=== PATIENT | female | born 1955 | race Caucasian/White ===

== ENCOUNTER 2020-07-19 09:13 | Outpatient (REF) | payer MEDICARE, SELFPAY ==
[2020-07-19 11:58] LABS: Creatinine Urine 135.51 mg/dL; Microalbum/Creatinine Ratio Ur 4.4 ug/mg cr; ~HepC Num1 0.06 S/CO (0.00-0.79); ~Hepatitis C Antibody Nonreactive (Nonreactive)
[2020-07-19 13:34] LABS: Alanine Aminotransferase 31 U/L (0-31); Albumin Level 3.9 g/dL (3.5-5.0); Alkaline Phosphatase 87 U/L (39-117); Anion Gap 12 (12-20); Aspartate Amino Transferase 24 U/L (5-31); Bilirubin Total 0.9 mg/dL (0.0-1.0); Blood Urea Nitrogen 13 mg/dL (9-16); Calcium 9.3 mg/dL (8.4-10.2); Carbon Dioxide 26 mmol/L (22-29); Chloride 106 mmol/L (96-108); Cholesterol 190 mg/dL; Estimated Average Glucose 143 mg/dL; Estimated Glomerular Filt Rate > 60; Glucose Fasting 117 mg/dL (60-99); HDL Cholesterol 59 mg/dL; Hemoglobin A1c % 6.6 %; LDL Cholesterol Calculated 114 mg/dl; Potassium 4.2 mmol/L (3.3-5.1); Sodium 140 mmol/L (135-145); Total Protein 6.4 g/dL (6.5-8.0); Triglycerides 85 mg/dL
[2020-07-19 13:54] LABS: Vitamin D 25-OH Total 23.6 ng/mL (>30)
== END 2020-07-19 09:14 | disposition home or self-care (01) ==
LOC: HO.MANLR 09:13
PROVIDERS: PCP Internal Medicine; Visit Provider Internal Medicine
DX: E11.9 Type 2 diabetes mellitus without complications (principal); E55.9 Vitamin D deficiency, unspecified; Z11.59 Encounter for screening for other viral diseases
CPT/HCPCS: 36415; 80053; 80061; 82043; 82306; 83036; 86803

== ENCOUNTER 2021-05-08 10:20 | Outpatient (REF) | payer MEDICARE, SELFPAY ==
[2021-05-08 14:07] LABS: Estimated Average Glucose 134 mg/dL; Hemoglobin A1c % 6.3 %
== END 2021-05-08 10:21 | disposition home or self-care (01) ==
LOC: HO.MANLDS 10:20
PROVIDERS: PCP Internal Medicine; Visit Provider Internal Medicine
DX: E59 Dietary selenium deficiency (principal); E11.9 Type 2 diabetes mellitus without complications
CPT/HCPCS: 36415; 83036

== ENCOUNTER 2021-08-28 15:55 | Outpatient (REF) | payer MEDICARE, SELFPAY ==
[2021-08-28 18:15] LABS: Estimated Average Glucose 128 mg/dL; Hemoglobin A1c % 6.1 %
[2021-08-28 18:33] LABS: Alanine Aminotransferase 25 U/L (0-31); Alkaline Phosphatase 77 U/L (39-117); Anion Gap 12 (12-20); Aspartate Amino Transferase 21 U/L (5-31); Bilirubin Total 0.5 mg/dL (0.0-1.0); Blood Urea Nitrogen 14 mg/dL (9-16); Calcium 10.4 mg/dL (8.4-10.2); Carbon Dioxide 25 mmol/L (22-29); Chloride 107 mmol/L (96-108); Estimated Glomerular Filt Rate > 60; Glucose Random 110 mg/dL (60-115); Potassium 4.2 mmol/L (3.3-5.1); Sodium 140 mmol/L (135-145); Total Protein 6.7 g/dL (6.5-8.0)
[2021-08-30 14:17] LABS: Vitamin D 25-OH Total 32.7 ng/mL (>30)
== END 2021-08-28 15:56 | disposition home or self-care (01) ==
LOC: HO.MANLDS 15:55
PROVIDERS: PCP Internal Medicine; Visit Provider Internal Medicine
DX: E11.9 Type 2 diabetes mellitus without complications (principal)
CPT/HCPCS: 36415; 80053; 82306; 83036; 84443

== ENCOUNTER 2021-11-09 08:13 | Outpatient (REF) | payer MEDICARE, SELFPAY ==
[2021-11-09 11:52] LABS: Alanine Aminotransferase 18 U/L (0-31); Albumin Level 3.7 g/dL (3.5-5.0); Alkaline Phosphatase 71 U/L (39-117); Anion Gap 9 (12-20); Aspartate Amino Transferase 17 U/L (5-31); Bilirubin Total 0.8 mg/dL (0.0-1.0); Blood Urea Nitrogen 13 mg/dL (9-16); Calcium 9.5 mg/dL (8.4-10.2); Carbon Dioxide 25 mmol/L (22-29); Chloride 109 mmol/L (96-108); Cholesterol 237 mg/dL; Estimated Glomerular Filt Rate > 60; Glucose Random 128 mg/dL (60-115); HDL Cholesterol 54 mg/dL; LDL Cholesterol Calculated 167 mg/dl; Potassium 4.3 mmol/L (3.3-5.1); Sodium 139 mmol/L (135-145); Total Protein 6.2 g/dL (6.5-8.0); Triglycerides 82 mg/dL
[2021-11-09 12:56] LABS: Estimated Average Glucose 123 mg/dL; Hemoglobin A1c % 5.9 %
== END 2021-11-09 08:14 | disposition home or self-care (01) ==
LOC: HO.MANLDS 08:13
PROVIDERS: Visit Provider Internal Medicine
DX: E11.9 Type 2 diabetes mellitus without complications (principal); E55.9 Vitamin D deficiency, unspecified
CPT/HCPCS: 36415; 80053; 80061; 82306; 83036

== ENCOUNTER 2021-11-12 09:02 | Outpatient (REF) | payer MEDICARE, SELFPAY ==
[2021-11-12 12:09] LABS: Creatinine Urine 91.42 mg/dL; Microalbumin Urine < 5.0 mg/L
== END 2021-11-12 09:03 | disposition home or self-care (01) ==
LOC: HO.MANLDS 09:02
PROVIDERS: Visit Provider Internal Medicine
DX: E11.9 Type 2 diabetes mellitus without complications (principal); E55.9 Vitamin D deficiency, unspecified
CPT/HCPCS: 82043

== ENCOUNTER 2022-04-16 09:07 | Outpatient (REF) | payer MEDICARE, SELFPAY ==
[2022-04-16 11:41] LABS: Estimated Average Glucose 126 mg/dL
[2022-04-16 11:47] LABS: Alanine Aminotransferase 25 U/L (0-31); Albumin Level 4.1 g/dL (3.5-5.0); Alkaline Phosphatase 76 U/L (39-117); Anion Gap 16 (12-20); Aspartate Amino Transferase 22 U/L (5-31); Bilirubin Total 0.7 mg/dL (0.0-1.0); Blood Urea Nitrogen 17 mg/dL (9-16); Carbon Dioxide 24 mmol/L (22-29); Chloride 106 mmol/L (96-108); Cholesterol 263 mg/dL; Estimated Glomerular Filt Rate > 60; Glucose Random 103 mg/dL (60-115); HDL Cholesterol 67 mg/dL; LDL Cholesterol Calculated 177 mg/dl; Potassium 4.5 mmol/L (3.3-5.1); Sodium 141 mmol/L (135-145); Total Protein 6.7 g/dL (6.5-8.0); Triglycerides 96 mg/dL
[2022-04-16 12:07] LABS: Vitamin D 25-OH Total 26.2 ng/mL (>30)
== END 2022-04-16 09:08 | disposition home or self-care (01) ==
LOC: HO.MANLDS 09:07
PROVIDERS: Visit Provider Internal Medicine
DX: E55.9 Vitamin D deficiency, unspecified (principal)
CPT/HCPCS: 36415; 80053; 80061; 82306; 83036

== ENCOUNTER 2022-04-17 11:27 | Outpatient (REF) | payer MEDICARE, SELFPAY ==
[2022-04-17 13:46] LABS: Creatinine Urine 61.06 mg/dL; Microalbum/Creatinine Ratio Ur 16.3 ug/mg cr
== END 2022-04-17 11:28 | disposition home or self-care (01) ==
LOC: HO.LNP 11:27
PROVIDERS: Visit Provider Internal Medicine
DX: E55.9 Vitamin D deficiency, unspecified (principal); E11.9 Type 2 diabetes mellitus without complications
CPT/HCPCS: 82043

== ENCOUNTER 2022-09-04 10:37 | Outpatient (REF) | payer MEDICARE, SELFPAY ==
[2022-09-04 12:55] LABS: MANUAL DIFF FLAG NO
[2022-09-04 13:09] LABS: Basophils Absolute Auto 0.1 X10*3/uL (0.0-0.2); Eosinophils Absolute Auto 0.2 X10*3/uL (0.0-0.4); Eosinophils Percent Auto 2.9 % (0-4); Hematocrit 44.3 % (37.0-47.0); Hemoglobin 14.6 g/dl (12.0-16.0); Imm Gran Abs Auto 0.03 X10*3/uL (0.00-0.03); Imm Gran Pct Auto 0.4 % (0.0-0.4); Lymphocytes Absolute Auto 1.7 X10*3/uL (1.2-4.9); Lymphocytes Percent Auto 23.2 % (20-40); Mean Corpuscular Hemoglobin 30.4 pg (27.0-33.0); Mean Corpuscular Volume 92.1 fL (80.0-98.0); Mean Platelet Volume 11.7 fL (9.4-12.3); Monocytes Absolute Auto 0.5 X10*3/uL (0.1-1.2); Monocytes Percent Auto 7.2 % (2-11); Neutrophils Absolute Auto 4.7 x10*3/uL (2.0-8.3); Neutrophils Percent Auto 65.3 % (45-73); Platelet Count 227 X10*3/uL (160-400); Red Blood Count 4.81 X10*6/uL (4.20-5.50); Red Cell Distribution Width 12.9 % (11.0-16.0); White Blood Count 7.3 X10*3/uL (4.8-10.8)
[2022-09-04 13:20] LABS: Estimated Average Glucose 134 mg/dL; Hemoglobin A1c % 6.3 %
[2022-09-04 13:41] LABS: Alanine Aminotransferase 29 U/L (0-31); Albumin Level 4.1 g/dL (3.5-5.0); Alkaline Phosphatase 83 U/L (39-117); Anion Gap 12 (12-20); Aspartate Amino Transferase 23 U/L (5-31); Bilirubin Total 0.7 mg/dL (0.0-1.0); Blood Urea Nitrogen 14 mg/dL (9-16); Calcium 10.3 mg/dL (8.4-10.2); Carbon Dioxide 28 mmol/L (22-29); Chloride 106 mmol/L (96-108); Estimated Glomerular Filt Rate > 60; Glucose Random 125 mg/dL (60-115); Potassium 4.5 mmol/L (3.3-5.1); Sodium 141 mmol/L (135-145); Total Protein 6.6 g/dL (6.5-8.0)
[2022-09-04 13:59] LABS: Free T4 (Free Thyroxine) 0.97 ng/dL (0.71-1.85); Thyroid Stimulating Hormone 1.19 uIU/mL (0.32-4.0)
== END 2022-09-04 10:38 | disposition home or self-care (01) ==
LOC: HO.MANLDS 10:37
PROVIDERS: Visit Provider Internal Medicine
DX: E11.9 Type 2 diabetes mellitus without complications (principal); R00.2 Palpitations
CPT/HCPCS: 36415; 80053; 83036; 84439; 84443; 85025

== ENCOUNTER 2023-01-01 10:21 | Outpatient (REF) | payer MEDICARE, SELFPAY ==
[2023-01-01 13:00] LABS: MANUAL DIFF FLAG NO
[2023-01-01 13:38] LABS: Basophils Absolute Auto 0.1 X10*3/uL (0.0-0.2); Basophils Percent Auto 0.9 % (0-2); Eosinophils Absolute Auto 0.1 X10*3/uL (0.0-0.4); Eosinophils Percent Auto 2.1 % (0-4); Hematocrit 40.7 % (37.0-47.0); Hemoglobin 13.3 g/dl (12.0-16.0); Imm Gran Abs Auto 0.03 X10*3/uL (0.00-0.03); Imm Gran Pct Auto 0.4 % (0.0-0.4); Lymphocytes Absolute Auto 1.4 X10*3/uL (1.2-4.9); Lymphocytes Percent Auto 20.1 % (20-40); Mean Corpuscular HGB Conc 32.7 g/dl (31.0-35.0); Mean Corpuscular Volume 91.7 fL (80.0-98.0); Mean Platelet Volume 11.4 fL (9.4-12.3); Monocytes Absolute Auto 0.4 X10*3/uL (0.1-1.2); Monocytes Percent Auto 6.6 % (2-11); Neutrophils Absolute Auto 4.7 x10*3/uL (2.0-8.3); Neutrophils Percent Auto 69.9 % (45-73); Platelet Count 229 X10*3/uL (160-400); Red Blood Count 4.44 X10*6/uL (4.20-5.50); Red Cell Distribution Width 13.1 % (11.0-16.0); White Blood Count 6.7 X10*3/uL (4.8-10.8)
[2023-01-01 13:50] LABS: Estimated Average Glucose 123 mg/dL; Hemoglobin A1c % 5.9 %
[2023-01-01 14:08] LABS: Alanine Aminotransferase 26 U/L (0-31); Albumin Level 3.7 g/dL (3.5-5.0); Alkaline Phosphatase 76 U/L (39-117); Anion Gap 10 (12-20); Aspartate Amino Transferase 22 U/L (5-31); Bilirubin Total 0.6 mg/dL (0.0-1.0); Blood Urea Nitrogen 12 mg/dL (9-16); Calcium 9.7 mg/dL (8.4-10.2); Carbon Dioxide 25 mmol/L (22-29); Chloride 107 mmol/L (96-108); Estimated Glomerular Filt Rate > 60; Glucose Random 170 mg/dL (60-115); Potassium 4.2 mmol/L (3.3-5.1); Sodium 138 mmol/L (135-145); Total Protein 6.6 g/dL (6.5-8.0)
[2023-01-01 14:18] LABS: Free T4 (Free Thyroxine) 0.97 ng/dL (0.71-1.85); Thyroid Stimulating Hormone 0.88 uIU/mL (0.32-4.0)
== END 2023-01-01 10:22 | disposition home or self-care (01) ==
LOC: HO.MANLDS 10:21
PROVIDERS: Visit Provider Internal Medicine
DX: E11.9 Type 2 diabetes mellitus without complications (principal); R00.2 Palpitations
CPT/HCPCS: 36415; 80053; 83036; 84439; 84443; 85025

== ENCOUNTER 2023-04-21 08:59 | Outpatient (REF) | payer MEDICARE, SELFPAY ==
[2023-04-21 13:52] LABS: Estimated Average Glucose 140 mg/dL; Hemoglobin A1c % 6.5 % (<6.0)
[2023-04-21 14:12] LABS: Alanine Aminotransferase 30 U/L (0-31); Alkaline Phosphatase 71 U/L (39-117); Anion Gap 10 (12-20); Aspartate Amino Transferase 28 U/L (5-31); Bilirubin Total 0.8 mg/dL (0.0-1.0); Blood Urea Nitrogen 11 mg/dL (9-16); Calcium 9.9 mg/dL (8.4-10.2); Carbon Dioxide 25 mmol/L (22-29); Chloride 106 mmol/L (96-108); Cholesterol 210 mg/dL (<200); Estimated Glomerular Filt Rate > 60; Glucose Random 113 mg/dL (60-115); HDL Cholesterol 65 mg/dL (>40); LDL Cholesterol Calculated 125 mg/dL (<100); Potassium 4.3 mmol/L (3.3-5.1); Sodium 137 mmol/L (135-145); Total Protein 7.1 g/dL (6.5-8.0); Triglycerides 101 mg/dL (<150)
[2023-04-21 14:18] LABS: Creatinine Urine 48.23 mg/dL; Microalbum/Creatinine Ratio Ur 12.4 ug/mg cr (<30)
[2023-04-21 14:30] LABS: Vitamin D 25-OH Total 54.3 ng/mL (>30)
== END 2023-04-21 09:00 | disposition home or self-care (01) ==
LOC: HO.MANLDS 08:59
PROVIDERS: Visit Provider Internal Medicine
DX: E11.9 Type 2 diabetes mellitus without complications (principal); E55.9 Vitamin D deficiency, unspecified
CPT/HCPCS: 36415; 80053; 80061; 82043; 82306; 82570; 83036

== ENCOUNTER 2023-08-15 11:18 | Outpatient (REF) | payer MEDICARE, SELFPAY ==
[2023-08-15 14:06] LABS: Estimated Average Glucose 140 mg/dL; Hemoglobin A1C 172.9708 umol/L; Hemoglobin A1c % 6.5 % (<6.0)
[2023-08-15 14:39] LABS: Alanine Aminotransferase 32 U/L (0-31); Albumin Level 4.1 g/dL (3.5-5.0); Alkaline Phosphatase 77 U/L (39-117); Anion Gap 8 (12-20); Aspartate Amino Transferase 26 U/L (5-31); Bilirubin Total 0.6 mg/dL (0.0-1.0); Blood Urea Nitrogen 13 mg/dL (9-16); Calcium 10.4 mg/dL (8.4-10.2); Carbon Dioxide 28 mmol/L (22-29); Chloride 107 mmol/L (96-108); Estimated Glomerular Filt Rate > 60; Glucose Random 174 mg/dL (60-115); Potassium 4.7 mmol/L (3.3-5.1); Sodium 138 mmol/L (135-145); Total Protein 7.2 g/dL (6.5-8.0)
== END 2023-08-15 11:19 | disposition home or self-care (01) ==
LOC: HO.MANLDS 11:18
PROVIDERS: Visit Provider Internal Medicine
DX: E11.9 Type 2 diabetes mellitus without complications (principal)
CPT/HCPCS: 36415; 80053; 83036

== ENCOUNTER 2023-08-20 08:24 | Outpatient (REF) | payer MEDICARE, SELFPAY ==
[2023-08-20 13:40] LABS: Cholesterol 253 mg/dL (<200); HDL Cholesterol 68 mg/dL (>40); LDL Cholesterol Calculated 167 mg/dL (<100); Triglycerides 92 mg/dL (<150)
[2023-08-20 13:44] LABS: Vitamin D 25-OH Total 39.2 ng/mL (>30)
[2023-08-20 14:08] LABS: Creatinine Urine 35.74 mg/dL; Microalbumin Urine < 5.0 mg/L
== END 2023-08-20 08:25 | disposition home or self-care (01) ==
LOC: HO.MANLDS 08:24
PROVIDERS: Visit Provider Internal Medicine
DX: Z13.6 Encounter for screening for cardiovascular disorders (principal); E55.9 Vitamin D deficiency, unspecified
CPT/HCPCS: 36415; 80061; 82043; 82306; 82570

== ENCOUNTER 2023-08-25 15:01 | Outpatient (REF) | payer MEDICARE, SELFPAY ==
[2023-08-25 17:47] LABS: Estimated Average Glucose 140 mg/dL; Hemoglobin A1c % 6.5 % (<6.0)
== END 2023-08-25 15:02 | disposition home or self-care (01) ==
LOC: HO.MANLDS 15:01
PROVIDERS: Visit Provider Internal Medicine
DX: E11.9 Type 2 diabetes mellitus without complications (principal)
CPT/HCPCS: 36415; 83036

== ENCOUNTER 2024-04-09 08:37 | Outpatient (REF) | payer MEDICARE, SELFPAY ==
[2024-04-09 14:00] LABS: Estimated Average Glucose 140 mg/dL; Hemoglobin A1C 181.2982 umol/L; Hemoglobin A1c % 6.5 % (<6.0); Total Hemoglobin (HGBA1C) 3833.1648 umol/L
[2024-04-09 14:17] LABS: Alanine Aminotransferase 30 U/L (0-31); Albumin Level 3.8 g/dL (3.5-5.0); Alkaline Phosphatase 68 U/L (39-117); Anion Gap 12 (12-20); Aspartate Amino Transferase 28 U/L (5-31); Bilirubin Total 0.7 mg/dL (0.0-1.0); Blood Urea Nitrogen 10 mg/dL (9-16); Calcium 10.2 mg/dL (8.4-10.2); Carbon Dioxide 23 mmol/L (22-29); Chloride 111 mmol/L (96-108); Cholesterol 222 mg/dL (<200); Estimated Glomerular Filt Rate > 60; Glucose Random 105 mg/dL (60-115); HDL Cholesterol 63 mg/dL (>40); LDL Cholesterol Calculated 133 mg/dL (<100); Potassium 4.2 mmol/L (3.3-5.1); Sodium 142 mmol/L (135-145); Total Protein 6.6 g/dL (6.5-8.0); Triglycerides 130 mg/dL (<150)
== END 2024-04-09 08:38 | disposition home or self-care (01) ==
LOC: HO.MANLDS 08:37
PROVIDERS: Visit Provider Internal Medicine
DX: E11.9 Type 2 diabetes mellitus without complications (principal)
CPT/HCPCS: 36415; 80053; 80061; 83036

== ENCOUNTER 2024-07-16 10:09 | Outpatient (REF) | payer MEDICARE, SELFPAY ==
--- OUTSIDE RECORDS SUMMARY | 2024-07-16 11:04 | XMS_ITS | Data Portability ---
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 2 OUT OF 3 ELEMENTS: PROBLEMS, DATA OR RISK ELEMENT 1: PROBLEMS ADDRESSED 1 OR MORE CHRONIC ILLNESS WITH EXACERBATION OR 2 OR MORE STABLE CHRONIC ILLNESSES OR 1 UNDIAGNOSED NEW PROBLEM OR 1 ACUTE ILLNESS W/SYMPTOMS OR 1 ACUTE COMPLICATED INJURY ELEMENT 2: DATA MUST MEET 1 OF 3 CATEGORIES CATEGORY 1: REVIEW OF PRIOR EXTERNAL NOTES, REVIEW OF RESULTS, ORDERING OF EACH TEST, ASSESSMENT REQUIRING INDEPENDENT HISTORIAN OR CATEGORY 2: INDEPENDENT INTERPRETATION OF TESTS BY ANOTHER PHYSICIAN OR SPECIALIST OR CATEGORY 3: DISCUSSION OF MGT OR TEST INTERPRETATION W/EXTERNAL PHYSICIAN OR SPECIALIST ELEMENT 3: RISK RISK OF COMPLICATIONS AND/OR MORBIDITY OR MORTALITY OF PATIENT MANAGEMENT PROVIDER MUST THOROUGHLY DOCUMENT EACH ELEMENT THAT IS COVERED Not available 05/12/2023 15:42:36 08/25/2023 08/25/2023 [id number] [place] [id number]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 2 OUT OF 3 ELEMENTS: PROBLEMS, DATA OR RISK ELEMENT 1: PROBLEMS ADDRESSED 1 OR MORE CHRONIC ILLNESS WITH EXACERBATION OR 2 OR MORE STABLE CHRONIC ILLNESSES OR 1 UNDIAGNOSED NEW PROBLEM OR 1 ACUTE ILLNESS W/SYMPTOMS OR 1 ACUTE COMPLICATED INJURY ELEMENT 2: DATA MUST MEET 1 OF 3 CATEGORIES CATEGORY 1: REVIEW OF PRIOR EXTERNAL NOTES, REVIEW OF RESULTS, ORDERING OF EACH TEST, ASSESSMENT REQUIRING INDEPENDENT HISTORIAN OR CATEGORY 2: INDEPENDENT INTERPRETATION OF TESTS BY ANOTHER PHYSICIAN OR SPECIALIST OR CATEGORY 3: DISCUSSION OF MGT OR TEST INTERPRETATION W/EXTERNAL PHYSICIAN OR SPECIALIST ELEMENT 3: RISK RISK OF COMPLICATIONS AND/OR MORBIDITY OR MORTALITY OF PATIENT MANAGEMENT PROVIDER MUST THOROUGHLY DOCUMENT EACH ELEMENT THAT IS COVERED Not available 08/25/2023 14:51:54 12/22/2023 12/22/2023 [id number] [place] [id number]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 2 OUT OF 3 ELEMENTS: PROBLEMS, DATA OR RISK ELEMENT 1: PROBLEMS ADDRESSED 1 OR MORE CHRONIC ILLNESS WITH EXACERBATION OR 2 OR MORE STABLE CHRONIC ILLNESSES OR 1 UNDIAGNOSED NEW PROBLEM OR 1 ACUTE ILLNESS W/SYMPTOMS OR 1 ACUTE COMPLICATED INJURY ELEMENT 2: DATA MUST MEET 1 OF 3 CATEGORIES CATEGORY 1: REVIEW OF PRIOR EXTERNAL NOTES, REVIEW OF RESULTS, ORDERING OF EACH TEST, ASSESSMENT REQUIRING INDEPENDENT HISTORIAN OR CATEGORY 2: INDEPENDENT INTERPRETATION OF TESTS BY ANOTHER PHYSICIAN OR SPECIALIST OR CATEGORY 3: DISCUSSION OF MGT OR TEST INTERPRETATION W/EXTERNAL PHYSICIAN OR SPECIALIST ELEMENT 3: RISK RISK OF COMPLICATIONS AND/OR MORBIDITY OR MORTALITY OF PATIENT MANAGEMENT PROVIDER MUST THOROUGHLY DOCUMENT EACH ELEMENT THAT IS COVERED Not available 12/22/2023 15:11:38 04/06/2024 04/06/2024 Patient presente d to office today for their Medicare Annual Wellness Visit. Education was provided on healthy nutrition, including a diet rich in fruits and vegetables, minimizing simple carbohydrates, salt, and saturated fats. Encouraged regular cardiovascular exercise such as walking at least 30 minutes daily, 5 times per week. Emphasized preventive health measures and educated pt on fall prevention and community-based lifestyle interventions to help reduce health risks and promote healthy living. 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 MUST MEET 2 OUT OF 3 ELEMENTS: PROBLEMS, DATA OR RISK ELEMENT 1: PROBLEMS 1 OR MORE CHRONIC ILLNESS W/SEVERE EXACERBATION, PROGRESSION MAY REQUIRE HOSPITAL LEVEL CARE OR 1 ACUTE OR CHRONIC ILLNESS OR INJURY THAT POSES A THREAT TO LIFE OR BODILY FUNCTION ELEMENT 2: DATA: MUST MEET 2 OF 3 CATEGORIES CATEGORY 1 REVIEW OF PRIOR EXTERNAL NOTES REVIEW OF THE RESULTS ORDERING OF EACH TEST ASSESSMENT REQUIRING INDEPENDENT HISTORIAN(S) CATEGORY 2: INDEPENDENT INTERPRETATION OF TESTS BY ANOTHER PROVIDER/SPECIALI ST CATEGORY 3: DISCUSSION OF MGT OR TEST INTERPRETATION W/EXTERNAL PHYSICIAN/SPECIAL IST ELEMENT 3: RISK HIGH RISK OF MORBIDITY FROM ADDITIONAL DIAGNOSTIC TESTING OR TREATMENT PROVIDER MUST THOROUGHLY DOCUMENT EACH ELEMENT THAT IS COVERED Not available 07/13/2024 16:07:50 Plan of Treatment Reminders Order Date Submit Date Provider Last Modified By Organization Details Last Modified Time Details Appointments FOLLOW UP 15 2024 01:30P Cornell CUMMINS Not available Not available Not available Lab HbA1c (hemoglob in A1c), blood 2023 024 [facility], [address] [place] [address], [id number], 10/17/2023 13:29:42 HbA1c (hemoglob in A1c), blood 2023 024 [facility], [address] [place] [address], [id number], 10/17/2023 13:29:42 HbA1c (hemoglob in A1c), blood 2023 024 [facility], [address] [place] [address], [id number], 04/06/2024 15:34:01 lipid panel, blood 2023 024 [facility], [address] [place] [address], [address], 04/06/2024 15:34:01 CBC w/ auto diff 2023 024 [facility], [address] [place] [address], [id number], 04/06/2024 15:34:01 CMP, serum or plasma 2023 024 [facility], [address] [place] [address], [address], 04/12/2024 11:56:20 HbA1c (hemoglob in A1c), blood 2024 025 [facility], [address] [place] [address], [address], 07/13/2024 16:17:10 CMP, serum or plasma 2024 025 [facility], [address] [place] [address], [address], 07/13/2024 16:17:10 microalbu min, urine 2024 025 [facility], [address] [place] [address], [address], 07/13/2024 16:17:10 CBC w/ auto diff 2024 025 [facility], [address] [place] [address], [id number], 07/14/2024 17:31:46 vitamin B12 + folate, serum or blood 2024 025 [facility], [address] [place] [address], [address], 07/13/2024 16:17:10 homocyste ine, serum or plasma 2024 025 [facility], [address] [place] [address], [address], 07/13/2024 16:17:10 methylmal guy, QN, serum or plasma 2024 025 [facility], [address] [place] [address], [address], 07/13/2024 16:17:10 vitamin D, 25-hydrox y, total, serum 2024 025 [facility], [address] [place] [address], [address], 07/13/2024 16:17:10 lipid panel, serum 2024 025 [facility], [address] [place] [address], [address], 07/13/2024 16:17:[address] referral 2022 023 cindy Lynch MD, [address] [place] [address], [id number], 06/11/2023 13:41:55 general surgeon referral 2022 023 cindy Steele MD, [address], [place], [address], 06/17/2023 08:12:07 general surgeon referral 2023 024 cindy Steele MD, [address], [place], [address], 01/20/2024 08:16:37 Procedures None recorded. Surgeries None recorded. Imaging XR, shoulder, 2 or more view 2023 024 [facility], [address] [place] [address], [id number], 09/01/2023 08:38:03 MAMMO, diagnosti c, digital, bilateral 2023 024 [facility], [address] [place] [address], [address], 01/06/2024 08:08:19 bone density 2023 024 [facility], [address] [place] [address], [address], 04/20/2024 08:26:34 Medication Orders cephalexi n 500 mg capsule 2023 024 [id number], [address] [place], [place], [phone], 04/06/2024 14:55:32 triamcino lone acetonide 0.1 % topical cream 2023 [facility] #[id number], [address] [place], [place], [phone], 04/06/2024 14:55:55 galantami ne ER 8 mg 24 hr capsule,e xtended release 2024 025 [id number], [address], [place], [phone], 07/13/2024 16:11:16 Patient TargetsNo targets recorded. Patient Instructions Encounter Date Encounter Id Patient Instructions Last Modified By Organization Details Last Modified Time 12/22/2023 [id number] learning about type 2 diabetes Not available 12/22/2023 13:56:49 type 2 diabetes: care instructions Not available 12/22/2023 13:56:49 04/06/2024 [id number] learning about type 2 diabetes Not available 04/06/2024 15:31:55 type 2 diabetes: care instructions Not available 04/06/2024 15:31:55 Discussed and explained advance directives such as standard forms to the {{patient* caregi alfie patient and caregiver}}. Face to face discussion lasted for a duration of __10_ minutes. Not available 04/06/2024 15:33:39 07/13/2024 [id number] alzheimer's disease: care instructions Not available 07/13/2024 16:11:10 Reason for Referral General Surgeon Referral for Mass of subcutaneous tissue of back enlarging and starting to hurt her Referring Physician: Darinel Cummins, Internal Medicine, Encounter Date: 05/12/2023 Neurologist Referral for Poo r short-term memory Referring Physician: Darinel Cummins, Internal Medicine, Encounter Date: 05/12/2023 General Surgeon Referral for Mass of subcutaneous tissue of back Referring Physician: Darinel Cummins, Internal Medicine, Encounter Date: 12/22/2023 Results Created Date Observation Date Name Description Value Unit Range Abnormal Flag Note LastModifiedBy Organization Detail LastModifiedTime 09/04/19 24 09/04/2023 [email or web address], 2 or more view No observ ation record ed. [facility] [address] [place], [address], 09/07/2023 20:40:59 02/05/20 24 02/05/2024 US, breas t, unila teral , compl ete No observ ation record ed. [address], [address], 02/09/2024 21:57:40 02/05/20 24 02/05/2024 MAMMO , diagn ostic , digit al, bilat eral No observ ation record ed. [address], [address], 02/10/2024 08:24:51 04/20/20 24 04/20/2024 MAMMO , scree sharonda, digit al, bilat eral No observ ation record ed. [email or web address] [facility]) - Callback Orders Only [address] [place], [address], 04/21/2024 08:18:02 04/22/20 24 02/05/2024 US, breas t, unila teral , compl ete No observ ation record ed. [email or web address] [address], [address], 04/26/2024 10:08:29 04/22/20 24 02/05/2024 MAMMO , diagn ostic , digit al, bilat eral No observ ation record ed. [facility] [address] [place], [address], 04/23/2024 09:03:56 04/29/2004/20/2024 MAMMO , scree sharonda, digit al, bilat eral No observ ation record ed. [facility]) - Callback Orders Only [address] [place], [address], 04/29/2024 16:41:35 Result Notes None recorded. Problems Name Problem SNOMED Code Status Onset Date Resolution Date Notes Provider Name and Address Organization Details Recorded Time Type 2 diabetes mellitus 86891290 Active 2017 Darinel Cummins DO [address] [place] [address], [address], [facility] 8 15:23:32 Vitamin D deficienc y 53438955 Active 2017 Darinel Frederick Sobiakristi, DO [address] [place] [address], [address], [facility] 8 15:23:48 Hyperlipi demia 34546486 Active 2017 Darinel Frederick Monique, DO [address] [place] [address], [address], [facility] 8 15:26:22 Irritable bowel syndrome 12904101 Active 2018 BARRINGTON Quesada [address] [place] [address], [address], [facility] 9 10:25:25 Poor short-ter m memory 444303979 Active 2021 Darinel Cummins, DO [address] [place] [address], [address], [facility] 2 11:08:51 Right upper quadrant pain 186189272 Active 2021 Darinel Cummins DO [address] [place] [address], [address], [facility] 2 10:43:41 Neuropath y due to diabetes mellitus 581333195 Active 2022 Darinel Cummins DO [address] [place] [address], [address], [facility] 3 10:15:10 Intermitt ent palpitati ons 997797142 Active 2022 Darinel Cummins DO [address] [place] [address], [address], [facility] 3 10:15:15 Bilateral hip joint pain 763396090767 62991 Active 2022 Darinel Cummins DO [address] [place] [address], [address], [facility] 3 10:20:07 Postmenop ausal osteopeni a 538251994 Active 2022 Darinel Cummins, [address], [address], [facility] 3 10:28:16 Mass of subcutane ous tissue of back 079139829356 103 Active 2022 Darinel Cummins, [address], [address], [facility] 3 15:44:48 Impingeme nt syndrome of left shoulder region 127737853741 104 Active 2023 Darinel Cummins, [address], [address], [facility] 4 14:52:05 Pain of left breast 1989536415 Active 2023 Darinel Cummins, [address], [address], [facility] 4 13:57:19 Mammograp hic microcalc ification of left breast 994649750547 23927 Active 2023 Darinel Cummins, [address], [address], [facility] 4 22:01:10 Mass of right breast 761841362056 61379 Active 2023 BARBARA RENTERIA [address] [place] [address], [address], [facility] 4 09:33:16 Mammograp hic mass of right breast 941668778276 64433 Active 2023 BARBARA RENTERIA [address] [place] [address], [address], [facility] 4 09:53:23 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 Procedures Surgical History None recorded. Imaging Results Imaging Date Name Status LastModified by Organiz ation Details LastModified Time 09/04/2023 XR, shoulder, 2 or more view completed [address], [address], 09/07/2023 20:40:59 02/05/2024 US, breast, unilateral, complete completed [address], [address], 02/09/2024 21:57:40 02/05/2024 MAMMO, diagnostic, digital, bilateral completed [email or web address] [address], [address], 02/10/2024 08:24:51 04/20/2024 MAMMO, screening, digital, bilateral completed [email or web address] Orders Only [address] [place] [address], [address], 04/21/2024 08:18:02 02/05/2024 US, breast, unilateral, complete completed [email or web address] [address], [address], 04/26/2024 10:08:29 02/05/2024 MAMMO, diagnostic, digital, bilateral completed [email or web address] [facility] Only [address] [place], [address], 04/23/2024 09:03:56 04/20/2024 MAMMO, screening, digital, bilateral completed [email or web address] [facility] - Callback Orders Only [address] [place], [address], 04/29/2024 16:41:35 Procedure Notes None recorded. Medical Equipment None Reported. Allergies Allergen ID Allergen Name Allergen Category Reaction Reaction Severity Criticality Documentation Date Start Date Code Code System Note Provider Name and Address Organization Details Recorded Time 2271 Substance with sulfonami de structure and antibacte rial mechanism of action (substanc e) medicatio n Not available Not available Not available 02/17/2018 24401 8003 SNOMED Xenia bardales [facility] 8 11:06:22 2273 doxycycli ne Not available Not available Not available Not available 02/17/2018 3640 RxNorm Xenia bardales [facility] 8 11:06:28 Medications Name Sig Start Date Stop Date Status Note LastModified by Organization Details LastModified Time atorvastati n 10 mg tablet TAKE 1 TABLET BY MOUTH DAILY 05/22 completed Not Available Not Available Not Available nystatin 100,000 unit/gram topical ointment APPLY TOPICALLY TO THE AFFECTED AREA TWICE DAILY NEEDED 09/04 completed Not Available Not Available Not Available Zyrtec 10 mg tablet Take 1 tablet every day by oral route. active Not Available Not Available No t Available triamcinolo ne acetonide 0.1 % topical cream APPLY THIN LAYER TOPICALLY TO THE AFFECTED AREA TWICE DAILY 04/06 completed Not Available Not Available Not Available triamcinolo ne acetonide 0.025 % topical cream APPLY THIN LAYER EXTERNALL Y TO THE AFFECTED AREA TWICE DAILY 04/06 completed Not Available Not Available Not Available OneTouch Ultra Test strips USE TO TEST BLOOD SUGAR EVERY MORNING active Not Available Not Available No t Available cephalexin 500 mg capsule Take 1 capsule 3 times a day by oral route for 10 days. 04/06 completed Not Available Not Available Not Available Cipro 500 mg tablet Take 1 tablet every 12 hours by oral route for 10 days. 10/15/ 2019 11/20 /2019 completed Not Available Not Available Not Available triamcinolo ne acetonide 0.1 % topical ointment APPLY TOPICALLY TO THE AFFECTED AREA TWICE DAILY FOR 14 DAYS active Not Available Not Available No t Available fluoxetine 10 mg capsule Take 1 capsule every day by oral route for 30 days. 04/28 completed Not Available Not Available Not Available epinephrine 0.3 mg/0.3 mL injection, auto-inject or INJECT 1 PEN IN THE MUSCLE ONE TIME DIRECTED active Not Available Not Available No t Available fluocinonid e 0.05 % topical cream APPLY TOPICALLY TO THE AFFECTED AREA TWICE DAILY FOR 2 WEEKS DIRECTED active Not Available Not Available No t Available modafinil 100 mg tablet TAKE 1 TABLET BY MOUTH EVERY DAY IN THE MORNING 11/20 completed Not Available Not Available Not Available cholestyram ine (with sugar) 4 gram oral powder DISSOLVE AND TAKE 1 SCOOP BY MOUTH EVERY DAY 01/24 completed Not Available Not Available Not Available rosuvastati n 10 mg tablet 02/17 completed Not Available Not Available Not Available galantamine ER 8 mg 24 hr capsule,ext ended release Take 1 capsule every day by oral route for 30 days. 2024 active Not Available Not Available Not Avai lable cholecalcif suzy (vitamin D3) 1,250 mcg (50,000 unit) capsule Take 1 capsule every week by oral route. 08/24 completed Not Available Not Available Not Available Aliseaglben SanchezikAkhil U-100 Insulin 100 unit/mL (3 mL) subcutaneou s ADMINISTE R 32 UNITS UNDER THE SKIN DAILY active Not Available Not Available No t Available OneTouch Ultra Blue Test Strip Take 1 strip every day by [employer]. route in the morning for 40 days. active Not Available Not Available No t Available BD Jenny 2nd Gen Pen Needle 32 gauge x 5/32 USE 1 PEN TO INJECT MEDICATIO N UNDER THE SKIN ONCE DAILY active Not Available Not Available No t Available BinaxNOW COVID-19 Ag Self Test kit TEST DIRECTED TODAY 05/22 completed Not Available Not Available Not Available Vitals Date Recorded Body height Body mass index (BMI) Body weight Heart rate Oxygen saturation Oxygen saturation in Arterial blood by Pulse oximetry Systolic blood pressure Diastolic blood pressure Provider Name and Address Organization Details Last Updated DateTime 3 169.55 cm 31.6 kg/m2 15715.4 7 g 94 /min 97 % 97 % 138 mm[Hg] 80 mm[Hg] Palma Mason [facility] 3 15:08:34 Date Recorded Body height Body mass index (BMI) Body weight Heart rate Oxygen saturation Oxygen saturation in Arterial blood by Pulse oximetry Systolic blood pressure Diastolic blood pressure Provider Name and Address Organization Details Last Updated DateTime 4 169.55 cm 31.9 kg/m2 10233.6 6 g 90 /min 96 % 96 % 150 mm[Hg] 84 mm[Hg] Palma Mason [facility] 4 14:08:57 Date Recorded Body height Body mass index (BMI) Body weight Heart rate Oxygen saturation Oxygen saturation in Arterial blood by Pulse oximetry Systolic blood pressure Diastolic blood pressure Provider Name and Address Organization Details Last Updated DateTime 4 169.55 cm 31.4 kg/m2 45139.8 8 g 103 /min 95 % 95 % 118 mm[Hg] 68 mm[Hg] Palma Mason [facility] 4 13:32:13 Date Recorded Body height Body mass index (BMI) Body weight Heart rate Oxygen saturation Oxygen saturation in Arterial blood by Pulse oximetry Systolic blood pressure Diastolic blood pressure Provider Name and Address Organization Details Last Updated DateTime 4 167.64 cm 32.9 kg/m2 86497.8 4 g 68 /min 96 % 96 % 132 mm[Hg] 82 mm[Hg] Larry Artis [facility] 4 14:57:36 Date Recorded Body height Body mass index (BMI) Body weight Heart rate Oxygen saturation Oxygen saturation in Arterial blood by Pulse oximetry Systolic blood pressure Diastolic blood pressure Provider Name and Address Organization Details Last Updated DateTime 5 167.64 cm 33.1 kg/m2 00688.4 4 g 76 /min 97 % 97 % 134 mm[Hg] 84 mm[Hg] Darinel Cummins, DO [address] [place], [address], [facility] 5 15:42:00 Social History Question Answer Notes LastModified by Organizat ion Details LastModified Time Tobacco Smoking Status Never Smoker Not Available [facility] 03:36:23 What Was The Date Of Your Most Recent Tobacco Screening? 07/13/2024 Information not available 07/13/2024 Do You Or Have You Ever Used Any Other Forms Of Tobacco Or Nicotine? No Information not available 09/04/2022 Sex: Unknown Functional Status None recorded. Mental Status None recorded. Family History Nothing Reported. Medical History No medical history recorded. Gynecological HistoryNo gynecological history recorded. Obstetrics History GPAL:G 0 P 0 0 0 0 Immunizations Vaccine Type Date Status Note Provider Nam e and Address Organization Details Recorded Time COVID-19, mRNA, LNP-S, PF, 30 mcg/0.3 mL dose, jay jay-sucrose 08/28/2020 completed Kadie bardales [facility] 05/21/2022 09:49:41 COVID-19, mRNA, LNP-S, PF, 30 mcg/0.3 mL dose, jay jay-sucrose 09/18/2020 completed Kadie bardales [facility] 05/21/2022 09:49:48 COVID-19, mRNA, LNP-S, PF, 30 mcg/0.3 mL dose, jay jay-sucrose 04/18/2021 completed Kadie bardales [facility] 05/21/2022 09:49:55 COVID-19, mRNA, LNP-S, PF, 30 mcg/0.3 mL dose, jay jay-sucrose 09/19/2021 completed Kadie bardales [facility] 05/21/2022 09:50:02 COVID-19, mRNA, LNP-S, PF, 30 mcg/0.3 mL dose, jay jay-sucrose 03/20/2022 completed Kadie bardales [facility] 05/21/2022 09:50:09 Tdap 01/30/2022 completed Kadie bardales [facility] 05/21/2022 09:50:23 Past Encounters Encounter ID Performer Location Encounter Start Date Encounter Closed Date Diagnosis/Indication Diagnosis SNOMED-CT Code Diagnosis ICD10 Code Diagnosis Note [id number] Maki Rivera NP, S [facility] [address] [facility] [address] 02/17/2018 10:57:47 02/17/2018 16:10:07 Swollen legs 078191112 M79.89 Type 2 sharifa betes mellitus 32253487 E11.9 Anxiety ab out loss of memory 104732833 F41.8 Schedule appt. to review after labs completed [id number] Darinel Cummins DO [facility] [address] [facility] [address] 03/03/2018 14:43:45 03/03/2018 15:45:31 Type 2 diabetes mellitus 04712816 E11.9 is being followed by [facility] jm l be seen in 1 year was 6.4 a1c Hyperlipidemia 46535690 E78.5 has stopped crestor on own due to gi upset chk lipids Vitamin D deficiency 347 90804 E55.9 vitamin d supp started 2 weeks ago Adult [facility] th examination 996167528 Z00.00 refuses mammogram [id number] Darinel Cummins DO [facility] [address] [facility] [place] [address] 06/24/2018 09:40:02 06/24/2018 10:16:39 Type 2 diabetes mellitus 57544630 E11.9 is being followed by dm clinic jm l be seen in 1 year was 6.4 a1c Diabetic p eripheral neuropathy 903371203 E11.40 will have a neurologis t see her for the neuropathi c type symptoms to make sure this is dm neuropathy as opposed to other etiology [id number] Darinel Cummins DO [facility] [address] [facility],[place] [address] 08/24/2018 10:00:46 08/24/2018 10:43:50 Tenderness of right lower quadrant of abdomen 348242058 R10.813 worrisome for renal calculi and will order ct abd Abdominal pain 20072611 R10.9 [id number] Darinel Cummins [facility] Internal Medicine [address] [facility],[place] [address] 09/25/2018 09:36:59 09/25/2018 11:20:28 Type 2 diabetes mellitus 83988530 E11.9 is being followed by dm clinic jm l be seen in 1 year was 6.4 a1c Vitamin D deficiency 347 27801 E55.9 vitamin d supp started 2 weeks ago Inguinal pain 514617408 R10.2 believe this could poss be the psoas muscle and this had gone away slowy Psoas tendinitis 0806760 5 M76.11 [id number] Darinel Cummins [facility] Internal Medicine [address] [facility], [place] [facility] [place] [address] 01/06/2019 09:50:30 01/06/2019 10:44:07 Type 2 diabetes mellitus 81096077 E11.9 is being followed by dm clinic jm l be seen in 1 year was 6.4 a1c Hyperlipidemia 77647011 E78.5 has stopped crestor on own due to gi upset chk lipids will need to cont to monitor Vitamin D deficiency 347 76868 E55.9 vitamin d supprelate s she has been ok Neuropathy due to diabetes mellitus 695888937 E11.[address] Noe tobin t Malaise and fatigue 2717 67272 R53.81 episodes of unknown etiology also has been getting more forgetful neuro felt this was stress induced [id number] September [place] Lucio [facility] [address] [facility], [place] [address] 03/23/2019 09:52:58 03/23/2019 12:14:38 Abdominal pain 63496379 R10.9 Flank pain 213947482 R10 .9 ? pyelo Acute urin arnie tract infection 903642504 N39.0 [id number] Darinel Cummins [facility] Medicine [address] [facility], [place] [address] 04/28/2019 11:13:30 04/28/2019 11:53:10 Type 2 diabetes mellitus 11623059 E11.9 is being followed by dm clinic jm l be seen in 1 year was 6.2 a1c was 6.4 Vitamin D deficiency 347 16933 E55.9 vitamin d supprelate s she has been ok Irritable bowel syndrome 53166665 K58.9 not bad at all Hyperlipidemia 36313639 E78.5 has stopped crestor on own due to gi upset chk lipids will need to cont to monitor [id number] Darinel Cummins [facility] Medicine [address] [facility] [address],[facility] [place] [address] 10/13/2019 09:50:10 10/13/2019 10:42:13 Type 2 diabetes mellitus 34678805 E11.9 is being followed by dm clinic jm lopez be seen in 1 year was 6.2 a1c was 6.4 but we have no new lab results available today Vitamin D deficiency 347 51656 E55.9 vitamin d supprelate s she has been ok Left flank pain 54328180 9 R10.9 will have her rechk the UA with a culture [id number] Darinel Cummins DO [facility] [address] [facility], [place] [facility] [place] [address] 02/09/2020 09:55:09 02/09/2020 10:53:33 Type 2 diabetes mellitus 55759695 E11.9 is being followed by dm clinic jm lopez be seen in [address] jovani osorio for her as ivan gone was6.3 in october was6.2 a1c was 6.4 but we have no new lab results available today told he she needs to get today Hepatitis C screening 41 4138874 Z11.59 nest visti Osteopenia 812218457 M85 .80 will order but she doesnt think she will get it Unsteady gait 736707236 R26.81 states it is a problem but she doesnt want to do anything about it [id number] Darinel Cummins DO [facility] [address] [facility] [address] [place] [address] 07/14/2020 13:53:14 07/14/2020 15:46:37 Type 2 diabetes mellitus 64344843 E11.9 a1c is not done yet is being followed by dm clinic jm lopez be seen in [address] jovani osorio for her as ivan gone was6.3 in october was6.2 a1c was 6.4 but we have no new lab results available today told he she needs to get today Hepatitis C screening 41 6136551 Z11.59 nest visti Osteopenia 372170447 M85 .80 will order but she doesnt think she will get it Hyperlipidemia 60442788 E78.5 has stopped crestor on own due to gi upset chk lipids will need to cont to monitor Pain in left foot 480773 0303 14591 M79.672 area right around cuboid bone will have foot spec see her she will need xray Attention deficit hyperactivity disorder 155393293 F90.9 after much deliberati on i am willing to try giving her a low dose modafanil to see if it is helpful at all Eczematous dermatitis of eyelid 54386660 H01.136 will try low potency theresa Excessive cerumen in ear canal 240345416 H61.21 will irrigate at home [id number] Darinel Cummins [facility] [address] 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,[place] [address] 11/20/2021 10:09:22 11/20/2021 11:11:18 Active or passive immunization 361546036 Z23 utd Adult heal th examination 788032451 Z00.00 refuses mammogram Advance care planning 71 3927547 Z71.89 done Screening for osteoporosis 459841538 Z13.820 refused Screening mammography 24 871266 Z12.31 no mammogram refused [id number] Darinel Cummins DO [facility] [address] [facility],[place] [employer] [place] [address] 05/22/2022 09:46:33 05/22/2022 14:20:36 Type 2 diabetes mellitus 07085601 E11.9 a1c is not done yet is being followed by dm clinic jm lopez be seen in [address] jovani osorio for her as ivan gone was 6.3 in april and has not gotten the test since then was 6.2 a1c was 6.4 but we have no new lab results available today told he she needs to get today Hyperlipidemia 48547001 E78.5 has stopped crestor on own due to gi upset chk lipids will need to cont to monitor Right uppe r quadrant pain 287883179 R10.11 all workup so far is negative we do not hav e a note from her last GI visitcould this be a GB dysfunctio n ?maybe needs a HIDA scan [id number] Darinel Cummins, [facility] [address] [facility],[place] [address] 09/04/2022 09:32:25 09/04/2022 10:39:11 Type 2 diabetes mellitus 03087599 E11.9 a1c is not done yet is being followed by dm clinic jm lopez be seen in [address] jovani osorio for her as ivan gone was 6.3 in april and has not gotten the test since then was 6.2 a1c was 6.4 but we have no new lab results available today told he she needs to get today Neuropathy due to diabetes mellitus 303556954 E11.[address] Liu neurologis t Osteopenia 041438893 M85 .80 will order but she doesnt think she will get it Advance care planning 71 1661154 Z71.89 done Poor short -term memory 279218564 R41.3 as discussed she has had a worl]k up aloready but refused further eval History of anaphylaxis 5912657486 1179827 Z87.892 has had no new episodes Intermitte nt palpitations 759374287 R00.2 ongoing for months not necessaril y assoc with exertion needs workup Bilateral hip joint pain 8750765385 8965858 M25.551 M25.552 [id number] Darinel Cummins [facility] [address] [facility] [address] [place],[place] [address] 01/24/2023 09:55:16 01/24/2023 11:20:07 Hyperlipidemia 57406041 E78.5 has stopped crestor on own due to gi upset chk lipids will need to cont to monitor Type 2 sharifa betes mellitus 56170083 E11.9 a1c is 5.9 and is being followed by dm clinic jm l be seen in [address] jovani franklin Neuropathy due to diabetes mellitus 469714409 E11.[address] Noe mims Vitamin D deficiency 347 78387 E55.9 vitamin d supprelate s she has been ok will rechk lab Postmenopa usal osteopenia 646043501 M85.80 [id number] Darinel Cummins [facility] [address] [facility], [place] [address] 05/12/2023 14:55:52 05/12/2023 15:51:41 Hyperlipidemia 57839560 E78.5 has stopped crestor on own due to gi upset chk lipids will need to cont to monitor Type 2 sharifa betes mellitus 61371145 E11.9 a1c is 5.9 but she had just dontated bloodnow a1c is 6.5 Vitamin D deficiency 347 59322 E55.9 vitamin d supplement s she has been ok will rechk lab Mass of [place] bcutaneous tissue of back 5918789539 73947 R22.2 will need to have these removed as they have gotten quite large Poor short -term memory 851865640 R41.3 as discussed she has had a work up already but refused further eval in the pastwe will benefit from a neurologis t eval [id number] Darniel Cummins [facility] [address] [facility],[place] [employer] [address] 08/25/2023 13:54:51 08/25/2023 15:18:19 Hyperlipidemia 50494599 E78.5 has stopped crestor on own due to gi upset chk lipids will need to cont to monitor Type 2 sharifa betes mellitus 56816051 E11.9 a1c is pending prior was 5.9 but she had just dontated bloodnow a1c is 6.5 Neuropathy due to diabetes mellitus 082360115 E11.[address] ritu tobin t Impingemen t syndrome of left shoulder region 8684317701 41872 M75.42 we will have her get xray first, if signif jm either try theresa or get MRI [id number] Darinel Cummins [facility] [address] [facility],[place] [address] 12/22/2023 13:22:09 12/23/2023 08:56:40 Mass of subcutaneous tissue of back 3744460487 60208 R22.2 will need to have these removed as they have gotten quite large and now infected Neuropathy due to diabetes mellitus 047920734 E11.[address] ritu mims Type 2 sharifa betes mellitus 25668976 E11.9 a1c is pending prior was 5.9 but she had just dontated bloodnow a1c is 6.5 Pain of left breast 1010 713819 N64.4 Eczematous dermatitis of eyelid 64616682 H01.136 will try low potency theresa [id number] Darinel Cummins [facility] [address] [facility],[place] [address] 04/06/2024 14:27:47 04/06/2024 15:42:21 Adult health examination 254420514 Z00.00 Screening for cardiovascular system disease 195533941 Z13.6 Screening for malignant neoplasm of colon 157585731 Z12.11 refused Screening for osteoporosis 311712006 Z13.820 Screening mammography 24 867636 Z12.31 Mammograph ic mass of right breast 0885909930 1018835 R92.8 going for breast bx Type 2 sharifa betes mellitus 20114902 E11.9 a1c is pending prior was 5.9 but she had just dontated bloodnow a1c is 6.5 [id number] Darinel Cummins [facility] [address] [facility],[place] [address] 07/13/2024 15:11:32 07/13/2024 16:16:36 Hyperlipidemia 46160736 E78.5 has stopped crestor on own due to gi upset chk lipids will need to cont to monitor Type 2 sharifa betes mellitus 83598531 E11.9 a1c is pending prior was 5.9 but she had just dontated bloodnow a1c is 6.5 Depression screening 171 131598 Z13.31 neg Alzheimer's disease 2692 9004 G30.9 reviewed results in detail of neuropsych will start tx Strain of triceps brachii muscle 483454431 S46.312A Health Concerns Section Related Observation LastModified by Organization Detai ls LastModified Time None Recorded Concern Status LastModified by Organization Details LastModified Time None Recorded Advance Directives Directive None Recorded Payers Encounter Date Sequence Insurance Name Policy Number Policy Whitfield Covered Member ID Whitfield Member ID Guarantor Name 05/12/2023 1 [place] [employer] Lizzy Stacy [id number] Lizzy Mariano Stacy 05/12/2023 2 [place] [id number] Lizzy Stacy [id number] Lizzy Stacy 08/25/2023 1 [place] Lizzy Stacy [id number] Lizzy Stacy 08/25/2023 2 [place] [id number] Lizzy Stacy [id number] Lizzy Stacy 12/22/2023 1 [place] Lizzy Stacy [id number] Lizzy Stacy 12/22/2023 2 [place] [id number] Lizzy Stacy [id number] Lizzymagon Stayc 04/06/2024 1 [place] Lizzy Stacy [id number] Lizzy Stacy 04/06/2024 2 [place] [id number] Lizzy Stacy [id number] Lizzy Stacy 07/13/2024 1 [place] Lizzy Stacy [id number] Lizzy Stacy 07/13/2024 2 [place] [id number] Lizzy Stacy [id number] Lizzy Stacy Notes Date Note Type Note Provider Name a nd Address Organization Details Recorded Time 3 text/html here for rechk and has been getting forgetfulrelates has felt dizzy and unsteadyrelates sometimes happens every day other times can be fine for several dayshas occured for roughly months slowlyhad been seen in ER with a negative cardiac w/u her atypical cp that day has since abated and is not much of an issuestates she is occ dropping stuffrelates has been coughing states she goes up stairs she coughs Darinel Cummins, DO [address] [place], [address], [facility] 05/12/2023 15:51:01 4 text/html here for matthew diaz nd is doing about samerelates having pain in her left knee Darinel Cummins DO [address] [place], [address], [facility] 08/25/2023 14:55:49 4 text/html never got back cyst taken care of is now infected and red and painfulleft hip is painful for several weeks needs hip xray too Darinel Cummins DO [address] [place], [address], [facility] 12/22/2023 15:13:08 4 text/html Medicare Annual Wellness VisitReported bypatient.Diet and Nutrition:healthy diet Fracture Risk:no history of fractures; no recent explained fracture; no sudden unexplained fractures; no previous musculoskeletal injuries Physical Activity:exercises on a regular basis; recent increase in physical activity; good physical condition Depression Risk:never feels sad, empty, or tearful; no loss of interest in activities; no significant changes in weight; no sleep disturbances or insomnia; no agitation; no loss of energy; no feelings of worthlessness or guilt; no thoughts of suicide; no history of depression; no history of mood disorders Orientation:no disorientation to time; no disorientation to date; no disorientation to place Concentration and Memory:no decreased concentrating ability; no memory lapses or loss; does not forget words Speech/Motor difficulties:no speech difficulties; no difficulty expressing formulated concepts; no difficulty with fine manipulative tasks; no difficulty writing/copying; no slowed reaction time; does not knock things over when trying to pick them up Hearing:no loss of hearing Vision:no vision problems Activities of Daily Living:able to bathe with limited or no assistance; able to contol urination and bowels; able to dress with limited or no assistance; able to feed self with limited or no assistance; able to get out of chair or bed with limited or no assistance; able to groom with limited or no assistance; able to toilet with limited or no assistance Instrumental Activities of Daily Living:able to do house work with limited or no assistance; able to grocery shop with limited or no assistance; able to manage medications with limited or no assistance; able to manage money with limited or no assistance; able to prepare meals with limited or no assistance; able to use the phone with limited or no assistance Falls Risk Assessment:no frequent falls while walking; no fall in the past year; no fall since last visit; no dizziness/vertigo Home Safety:no unsafe odell hazzards; no unsafe stairs; no unsafe gas appliances; working smoke/CO detectors; wears protective head gear for biking/high velocity; use of seatbelts; practicing 'safer sex'; no vision or hearing loss while driving; no fire arms; has hand bars in the bathroom/shower; good lighting in the home here for mwv doing ok but is being worked up for memory impairment Darinel Cummins DO [address] [place] [address], [place], [address], [facility] Medicine 04/06/2024 15:34:13 5 text/html recently dx with alzhem dementia relates has been seemingly unaffected by this dxshe is bright with her moodknows she needs to be treated and extra lab ordered Darinel Cummins DO [address] [facility], [place], [address], [facility] 07/13/2024 16:13:07 OBGyn Episode No OBEpisode recorded.
--- OUTSIDE RECORDS SUMMARY | 2024-07-16 11:04 | XMS_ITS | Continuity of Care Document ---
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 MUST MEET 2 OUT [...] available Lab HbA1c (hemoglob in A1c), blood 2024 025 [facility], [address] [place] [address], [place], [address], 07/13/2024 16:17:10 CMP, serum or plasma 2024 025 [facility], [address], [place], [address], 07/13/2024 16:17:10 microalbu min, urine 2024 025 [facility], [address] [place] [address], [id number], 07/13/2024 16:17:10 CBC w/ auto diff 2024 025 [facility], [address] [place] [address], [place], [address], 07/14/2024 17:31:46 vitamin B12 + folate, serum or blood 2024 025 [facility], [address] [place] [address], [address], 07/13/2024 16:17:10 homocyste ine, serum or plasma 2024 025 [facility], [address] [place] [address], [address], 07/13/2024 16:17:10 methylmal guy, QN, serum or plasma 2024 025 [facility], [address] [place] [address], [id number], 07/13/2024 16:17:10 vitamin D, 25-hydrox y, total, serum 2024 025 [facility], [address] [place] [address], [address], 07/13/2024 16:17:10 lipid panel, serum 2024 025 [facility], [address] [place] [address], [id number], 07/13/2024 16:17:10 Referral None recorded. Procedures None recorded. Surgeries None recorded. Imaging None recorded. Medication Orders galantami ne ER 8 mg 24 hr capsule,e xtended release 2024 025 [id number], [address] [place], [place], [id number], 07/13/2024 16:11:16 Patient TargetsNo targets recorded. Patient Instructions Encounter Date Encounter Id Patient Instructions Last Modified By Organization Details Last Modified Time 07/13/2024 [id number] alzheimer's disease: care instructions Not available 07/13/2024 16:11:10 Reason for Referral None Reported. Problems Name Problem SNOMED Code Status Onset Date Resolution Date Notes Provider Name and Address Organization Details Recorded Time Type 2 diabetes mellitus 02483478 Active 2017 Darinel Cummins DO [address] [place] [address], [phone], [facility] [place], [facility] 8 15:23:32 Vitamin D deficienc y 86569779 Active 2017 Darinel Cummins DO [address] [place] [address], [address], [facility] [place] 8 15:23:48 Hyperlipi demia 06894420 Active 2017 Darinel Cummins DO [address] [place] [address], [address], [facility] [place] 8 15:26:22 Irritable bowel syndrome 46651490 Active 2018 Naveed KANDYROXANNE [address] [place] [address], [address], [facility] [place] 9 10:25:25 Poor short-ter m memory 809464367 Active 2021 Darinel Cummins DO [address] [place] [address], [address], [facility] [place] 2 11:08:51 Right upper quadrant pain 850417934 Active 2021 Darinel Cummins DO [address] [place] [address], [address], [facility] [place] 2 10:43:41 Neuropath y due to diabetes mellitus 992245989 Active 2022 Darinel Cummins DO [address] [place] [address], [address], [facility] [place] 3 10:15:10 Intermitt ent palpitati ons 767357115 Active 2022 Darinel Cummins, DO [address] [place] [address], [address], [facility] [place] 3 10:15:15 Bilateral hip joint pain 589859172996 92820 Active 2022 Darinel Cummins, DO [address] [place] [address], [address], [facility] [place] 3 10:20:07 Postmenop ausal osteopeni a 935291048 Active 2022 Darinel Cummins, DO [address] [place] [address], [address], [facility] [place] 3 10:28:16 Mass of subcutane ous tissue of back 114479928676 103 Active 2022 Darinel Cummins, DO [address] [place] [address], [address], [facility] [place] 3 15:44:48 Impingeme nt syndrome of left shoulder region 243241907749 104 Active 2023 Darinel Cummins, DO [address] [place] [address], [address], [facility] [place] 4 14:52:05 Pain of left breast 0041905363 Active 2023 Darinel Cummins, DO [address] [place] [address], [address], [facility] [place] 4 13:57:19 Mammograp hic microcalc ification of left breast 476623789575 01584 Active 2023 Darinel Cummins, DO [address] [place] [address], [address], [facility] [place] 4 22:01:10 Mass of right breast 946162526702 78028 Active 2023 BARBARA RENTERIA [address] [place] [address], [address], [facility] [place] 4 09:33:16 Mammograp hic mass of right breast 084928175256 58215 Active 2023 BARBARA RENTERIA [address] [place] [address], [address], [facility] [place] 4 09:53:23 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 Medical Equipment None Reported. Allergies Allergen ID Allergen Name Allergen Category Reaction Reaction Severity Criticality Documentation Date Start Date Code Code System Note Provider Name and Address Organization Details Recorded Time 2271 Substance with sulfonami de structure and antibacte rial mechanism of action (substanc e) medicatio n Not available Not available Not available 02/17/2018 25266 8003 [facility] 11:[facility]22 2273 doxycycli ne Not available Not available Not available Not available 02/17/2018 3640 RxNorm Xenia bardales [facility] 8 11:06:28 Medications Name Sig Start Date [...] completed Not Available Not Available Not Available [employer] Ultra Test strips USE TO TEST BLOOD SUGAR EVERY MORNING active Not Available Not Available No t Available cephalexin 500 mg capsule Take 1 capsule 3 times a day by oral route for 10 days. 04/06 completed Not Available Not Available Not Available Cipro 500 mg tablet Take 1 tablet every 12 hours by oral route for 10 days. 04/28 completed Not Available Not Available [...] completed Not Available Not Available Not Available Shirley Montoya U-100 Insulin 100 unit/mL (3 mL) subcutaneou s ADMINISTE R 32 UNITS UNDER THE SKIN DAILY active Not Available Not Available No t Available OneTouch Ultra Blue Test Strip Take 1 strip every day by miscell. route in the morning for 40 days. active Not Available Not Available No t Available BD Jenny 2nd Gen Pen Needle 32 gauge x /32 USE 1 PEN TO INJECT MEDICATIO N [...] Updated DateTime 5 167.64 cm 33.1 kg/m2 27256.4 4 g 76 /min 97 % 97 % 134 mm[Hg] 84 mm[Hg] Darinel Cummins, DO [address] [place], [address] [place] [address] Internal [facility] 5 15:42:00 Social History Question Answer Notes LastModified by Organizat ion Details LastModified Time Tobacco Smoking Status Never Smoker Not Available [facility] 04/11/2020 03:36:23 What Was The Date Of [...] mL dose, jay jay-sucrose 08/28/2020 [facility]/2022 09:49:41 COVID-19, mRNA, LNP-S, PF, 30 mcg/0.3 mL dose, jay jay-sucrose 09/18/2020 completed Kadieannel Delgado null, [facility] 05/21/2022 09:49:48 COVID-19, mRNA, LNP-S, PF, 30 mcg/0.3 mL dose, jay jay-sucrose 04/18/2021 completed Kadie [place] null, [facility] 05/21/2022 09:49:55 COVID-19, mRNA, LNP-S, PF, 30 mcg/0.3 mL dose, jay jay-sucrose 09/19/2021 completed Kadie [place] null, [facility] 05/21/2022 09:50:02 COVID-19, mRNA, LNP-S, PF, 30 mcg/0.3 mL dose, ja yjay-sucrose 03/20/2022 completed Kadie [place] null, [facility] 05/21/2022 09:50:09 Tdap 01/30/2022 completed Kadie [place] null, [facility] 05/21/2022 09:50:23 Past Encounters Encounter ID Performer Location Encounter Start Date Encounter Closed Date Diagnosis/Indication Diagnosis SNOMED-CT Code Diagnosis ICD10 Code Diagnosis Note [id number] Darinel Cummins [facility] [address] [facility] [address] 07/13/2024 15:11:32 07/13/2024 16:16:36 Hyperlipidemia 75049716 E78.5 has stopped crestor on own due to gi upset chk lipids will need to cont to monitor Type 2 sharifa betes mellitus 31062180 E11.9 a1c is pending prior was 5.9 but she had just dontated bloodnow a1c is 6.5 Depression screening 171 193550 Z13.31 neg Alzheimer's disease 8288 7635 G30.9 reviewed results in detail of neuropsych will start tx Strain of triceps brachii muscle 735008567 S46.312A Health Concerns Section Related Observation LastModified by Organization Detai ls LastModified Time None Recorded Concern Status LastModified by Organization Details LastModified Time None Recorded Payers Encounter Date Sequence Insurance Name Policy Number Policy Whitfield Covered Member ID Whitfield Member ID Guarantor Name 07/13/2024 1 [place] [employer] Lizzy Stacy [id number] Lizzy Quintana Regis 07/13/2024 2 [place] [id number] Lizzy J Regis [id number] Lizzy Mariano Stacy Notes Date Note Type Note Provider Name a nd Address Organization Details Recorded Time 07/13/2024 text/html recently dx with alzhem dementia relates has been seemingly unaffected by this dxshe is bright with her moodknows she needs to be treated and extra lab ordered Darinel Cummins, DO [address] [facility], [place], [address], [facility] 07/13/2024 16:13:07 OBGyn Episode No OBEpisode recorded.
[2024-07-16 13:32] LABS: MANUAL DIFF FLAG NO
[2024-07-16 13:49] LABS: Basophils Absolute Auto 0.1 X10*3/uL (0.0-0.2); Basophils Percent Auto 1.1 % (0-2); Eosinophils Absolute Auto 0.2 X10*3/uL (0.0-0.4); Eosinophils Percent Auto 2.7 % (0-4); Hematocrit 42.9 % (37.0-47.0); Hemoglobin 14.3 g/dl (12.0-16.0); Imm Gran Abs Auto 0.01 X10*3/uL (0.00-0.03); Imm Gran Pct Auto 0.2 % (0.0-0.4); Lymphocytes Absolute Auto 1.5 X10*3/uL (1.2-4.9); Lymphocytes Percent Auto 23.1 % (20-40); Mean Corpuscular HGB Conc 33.3 g/dl (31.0-35.0); Mean Corpuscular Hemoglobin 30.3 pg (27.0-33.0); Mean Corpuscular Volume 90.9 fL (80.0-98.0); Mean Platelet Volume 11.3 fL (9.4-12.3); Monocytes Absolute Auto 0.5 X10*3/uL (0.1-1.2); Monocytes Percent Auto 7.1 % (2-11); Neutrophils Absolute Auto 4.2 x10*3/uL (2.0-8.3); Neutrophils Percent Auto 65.8 % (45-73); Platelet Count 228 X10*3/uL (160-400); Red Blood Count 4.72 X10*6/uL (4.20-5.50); Red Cell Distribution Width 12.8 % (11.0-16.0); White Blood Count 6.3 X10*3/uL (4.8-10.8)
[2024-07-16 14:16] LABS: Estimated Average Glucose 148 mg/dL; Hemoglobin A1C 186.3827 umol/L; Hemoglobin A1c % 6.8 % (<6.0); Total Hemoglobin (HGBA1C) 3692.6265 umol/L
[2024-07-16 14:21] LABS: Alanine Aminotransferase 38 U/L (0-31); Albumin Level 3.9 g/dL (3.5-5.0); Alkaline Phosphatase 71 U/L (39-117); Anion Gap 16 (12-20); Aspartate Amino Transferase 30 U/L (5-31); Bilirubin Total 0.7 mg/dL (0.0-1.0); Blood Urea Nitrogen 11 mg/dL (9-16); Calcium 9.8 mg/dL (8.4-10.2); Carbon Dioxide 25 mmol/L (22-29); Chloride 103 mmol/L (96-108); Cholesterol 227 mg/dL (<200); Estimated Glomerular Filt Rate > 60; Glucose Random 140 mg/dL (60-115); HDL Cholesterol 61 mg/dL (>40); LDL Cholesterol Calculated 137 mg/dL (<100); Potassium 4.4 mmol/L (3.3-5.1); Sodium 140 mmol/L (135-145); Total Protein 7.1 g/dL (6.5-8.0); Triglycerides 146 mg/dL (<150)
[2024-07-16 14:26] LABS: Creatinine Urine 43.37 mg/dL; Microalbumin Urine < 5.0 mg/L
[2024-07-16 14:52] LABS: Vitamin B12 522 pg/mL (200-900)
[2024-07-17 18:53] LABS: Homocysteine 11.6 umol/L (<10.4)
[2024-07-21 08:48] LABS: Methylmalonic Acid 112 nmol/L (69-390)
[2024-07-21 17:04] LABS: VITAMIN D (1,25 OH) D3 36 pg/mL; Vit D (1,25-Dihydroxy) Total 36 pg/mL (18-72); Vitamin D (1,25 OH) D2 <8 pg/mL
== END 2024-07-16 10:10 | disposition home or self-care (01) ==
LOC: HO.MANLDS 10:09
PROVIDERS: Visit Provider Internal Medicine
DX: E78.5 Hyperlipidemia, unspecified (principal); E11.9 Type 2 diabetes mellitus without complications; G30.9 Alzheimer's disease, unspecified
CPT/HCPCS: 36415; 80053; 80061; 82043; 82570; 82607; 82652; 83036; 83090; 83921; 85025

== ENCOUNTER 2025-04-05 07:44 | Outpatient (REF) | payer MEDICARE, SELFPAY ==
--- OUTSIDE RECORDS SUMMARY | 2011-09-10 | XMS_ITS | Encounter Summary ---
Author Organization [facility] Address [address] [place] [address] Phone Care Team Providers Care Assembler 1St Shift Name Role Phone Unavailable Primary Care Provider Unavailabl e Encounter Details Date Type Department Care Team (Late st Contact Info) Description 09/10/2011 Hospital Encounter [facility],Outside Imaging [address] [place], [place] [id number] Unknown, Unknown, MD Social History Tobacco Use Types Packs/Day Years Used Date Smoking Tobacco: Never Passive Smoke Exposure: Never Smokeless Tobacco: Never Alcohol Use Standard Drinks/Week Comments No 0 (1 standard drink = 0.6 oz pur e alcohol) Education Answer Date Recorded Are you interested in more education? Not on ryan e 10/04/2022 Are you concerned about learning? Not on file 10/04/2022 No 10/04/2022 No 10/04/2022 Food Answer Date Recorded Within the past 6 months we worried whether our food would run out before we got money to buy more. Never True 12/07/2024 Within the past 6 months the food we bought just didn't last and we didn't have enough money to get more. Never True Residential Stability Answer Date Recor ded What is your housing situation today? I have buster benedict 12/07/2024 How many times have you move d in the past 12 months? Zero (I did not move) 12/07/2024 Paying for Meds Answer Date Recorded Do you have trouble paying for medicines? No 12/07/2024 Paying Utility Bills Answer Date Record ed Do you have trouble paying your heating or elect ricity bill? No 12/07/2024 Transportation Answer Date Recorded Has the lack of transportati on kept you from medical appointments or from getting medications? No 12/07/2024 Digital Access Answer Date Recorded No 12/07/2024 Yes 12/07/2024 Do you have reliable internet access at home? Ye s 12/07/2024 Do you have a device (e.g., phone, tablet, computer) with a working camera? Yes 12/07/2024 Intimate Partner Violence Answer Date R ecorded Are you denied basic needs s uch as food, clothing, or medical care? No 01/13/2025 In the past 12 months have y ou been in a relationship with a person who hurts, threatens, or tries to control you? No 01/13/2025 Are you denied basic needs s uch as food, clothing, or medical care? No 01/13/2025 In the past 12 months have y ou been in a relationship with a person who hurts, threatens, or tries to control you? No 01/13/2025 Comments No Sex and Gender Information Value Date Recorded Sex Assigned at Female 06/16/2017 9:38 AM EST Legal Sex Female 9:57 PM EDT Gender Identity Female 06/16/2017 9:38 AM EST Sexual Orientation Straight 06/16/2017 9: 38 AM EST documented as of this encounter Functional Status * Calculated C-SSRS Risk Score (Lifetime/Recent) Answer Date of Assessment Author No Risk Indicated 01/13/2025 8:20 AM JESSICAT Jian Hernandez, RN * [place] Suicide Severity Rating Scale (Screener/Recent Self-Report) Question Answer Date of Assessment Author 1. Wish to be (Past 1 Month) No 01/13/2025 8:20 AM JESSICAT Jian Hernandez, RN 2. Non-Specific Active Suici kade Thoughts (Past 1 Month) No 01/13/2025 8:20 AM JESSICAT Toby Hernandez, RN 6. Suicidal Behavior (Lifetime) No 8:20 AM JESSICAT Jian Hernandez, RN documented as of this encounter Plan of Treatment Upcoming Encounters Date Type Department Care Team (Late st Contact Info) Description 05/16/2025 11:00 AM EST Nutrition [facility] [address] [place] [address] Yamilet Muñoz LDN [address] [address] [email or web address] 07/04/2025 10:20 AM EST Office Visit [facility] [address] [place] [address] Jacki Zacarias MD 22 [facility], [address] [place] [phone] [email or web address] 07/07/2025 1:00 PM EST Appointment [facility] [address] [place] [address] Guillaume Chino, DO [address] [place] [phone] [email or web address] 07/14/2025 9:30 AM EST Office Visit [facility] [address] [place] [address] Guillaume Chino, DO [address] [place] [phone] [email or web address] documented as of this encounter Procedures Procedure Name Priority Date/Time Associated Diagnosis Comments BI US BREAST OUTSIDE (NO INTERPRETATION) Routine 09/10/2011 12:00 AM EDT documented in this encounter Results * US Breast Outside (No Interpretation) (09/10/2011 12:00 AM EDT) Narrative SYSTEMGENERATED, DOCUMENTATION - 06/06/2022 4:09 PM EST This study is for PACS storage only and not for interpretation. us Unknown Unknown MD BELL OUTSIDE IMAGING W/OUT INT ERPRETATION Final Result documented in this encounter Visit Diagnoses Not on filedocumented in this encounter Additional Health Concerns Infection Onset Date Last Indicated Resolved Time CoV-Risk 08/04/2021 08/04/2021 08/14/2021 1:23 AM EST CoV-Risk 04/16/2023 04/16/2023 04/27/2023 1:21 AM EST documented as of this encounter Additional Source Comments The information contained in this document represents components of the legal health record. It is not the complete legal health record.[facility]
--- OUTSIDE RECORDS SUMMARY | 2011-09-10 00:05 | XMS_ITS | Encounter Summary ---
Author Organization [facility] Address [address] [place] [address] Phone Care Team Providers Care Security Delivery Specialist Name Role Phone Unavailable Primary Care Provider Unavailabl e Encounter Details Date Type Department Care Team (Late st Contact Info) Description 09/10/2011 12:05 AM EDT Hospital Encounter [facility],Outside Imaging [address] [place], [place] [phone] Unknown, Unknown, Social History Tobacco Use Types Packs/Day Years [...] your housing situation today? I have buster sing 12/07/2024 How many times have you move [...] Risk Indicated 01/13/2025 8:20 AM JESSICAT Jian Hernandez RN * [place] Suicide Severity Rating Scale (Screener/Recent Self-Report) Question Answer Date of Assessment Author 1. Wish to be (Past 1 Month) No 01/13/2025 8:20 AM Jian Castillo, RN 2. Non-Specific Active Suici kade Thoughts (Past 1 Month) No 01/13/2025 8:20 AM Toby Castillo RN 6. Suicidal Behavior (Lifetime) No 8:20 AM Jian Castillo, RN documented as of this encounter Plan of Treatment Upcoming Encounters Date Type Department Care Team (Late st Contact Info) Description 05/16/2025 11:00 AM EST Nutrition [facility] [address] [place] [address] [place] [address] Yamilet Muñoz LDN [address] [address] [email or web address] 07/04/2025 10:20 AM EST Office Visit [facility] [address] [place] [address] Jacki Zacarias MD [address] [address] [email or web address] 07/07/2025 1:00 PM EST Appointment [facility] [address] [place] [phone] Guillaume Chino, DO [address] [place] [phone] [email or web address] 07/14/2025 9:30 AM EST Office Visit [facility] at [address] [address] Guillaume Chino, DO [address] [place] [phone] [email or web address] documented as of this encounter Procedures Procedure Name Priority Date/Time Associated Diagnosis Comments BI MAMMOGRAM OUTSIDE (NO INTERPRETATION) Routine 09/10/2011 12:05 AM EDT documented in this encounter Results * Mammogram Outside (No Interpretation) (09/10/2011 12:05 AM EDT) Narrative SYSTEMGENERATED, DOCUMENTATION - 06/06/2022 4:10 PM EST This study is for PACS [...] It is not the complete legal health record.[facility]
--- OUTSIDE RECORDS SUMMARY | 2011-10-02 | XMS_ITS | Encounter Summary ---
Author Organization [facility] Address [address] [place] [address] Phone Care Team Providers Care Sales Market Leader Name Role Phone Unavailable Primary Care Provider Unavailabl e Encounter Details Date Type Department Care Team (Late st Contact Info) Description 10/02/2011 Hospital Encounter [facility],Outside Imaging [address] [place], [place] [phone] Unknown, Unknown, Social History Tobacco Use Types Packs/Day Years Used Date Smoking Tobacco: Never Passive Smoke Exposure: Never Smokeless Tobacco: Never Alcohol Use Standard Drinks/Week Comments No 0 (1 standard drink = 0.6 oz pur e alcohol) Education Answer Date Recorded Are you interested in more education? Not on ryna e 10/04/2022 Are you concerned about learning? [...] 8:20 AM JESSICAT Jian Hernandez, RN * [place] Suicide Severity Rating Scale (Screener/Recent Self-Report) Question [...] Info) Description 05/16/2025 11:00 AM EST Nutrition [facility] [address] [place] [address] Yamilet Muñoz LDN [address] [address] [email or web address] 07/04/2025 10:20 AM EST Office Visit [facility] [address] [place] [address] Jacki Zacarias MD 22 [facility], [address] [place] [phone] [email or web address] 07/07/2025 1:00 PM EST Appointment [facility] [address] [place] [address] Guillaume Chino, DO [address] [place] [phone] [email or web address] 07/14/2025 9:30 AM EST Office [facility] [address] [place] [address] Guillaume Chino, DO [address] [place] [phone] [email or web address] documented as of this encounter Procedures Procedure Name Priority Date/Time Associated Diagnosis Comments BI US BREAST OUTSIDE (NO INTERPRETATION) Routine 10/02/2011 12:00 AM EDT documented in this encounter Results * US Breast Outside (No Interpretation) (10/02/2011 12:00 AM EDT) Narrative SYSTEMGENERATED, DOCUMENTATION - [...] It is not the complete legal health record.[facility]
--- OUTSIDE RECORDS SUMMARY | 2025-04-05 07:50 | XMS_ITS | Encounter Summary ---
Author Organization [facility] Address [address] [facility] [address] [place] [address] Phone Care Team Providers Care Powerhouse Tender Name Role Phone Darinel Amaya DO Primary Care Provider [phone] Darinel Amaya DO Unavailable Guillaume Chino DO Unavailable [phone] Bigda, Darinel Desai DO Primary Care Provider [phone] Encounter Details Date Type Department Care Team (Late st Contact Info) Description 08/24/2018 Transcribe Orders [facility] [address] [place] [address] [id number] Darinel Amaya DO [address] [facility] [place] [address] [email or web address] Acute abdominal pain syndrome (Primary Dx) Social History Tobacco Use Types Packs/Day Years Used Date Smoking Tobacco: Never Smokeless Tobacco: Never Alcohol Use Standard Drinks/Week Comments No 0 (1 standard drink = 0.6 oz pur e alcohol) Comments Unknown Sex and Gender Information Value Date Recorded Sex Assigned at Female 06/16/2017 9:38 AM EST Legal Sex Female 9:57 PM EDT Gender Identity Female 06/16/2017 9:38 AM EST Sexual Orientation Straight 06/16/2017 9: 38 AM EST documented as of this encounter Plan of Treatment Upcoming Encounters Date Type Department Care Team (Late st Contact Info) Description 05/16/2025 11:00 AM EST Nutrition [facility] [address] [place] [address] Yamilet Muñoz LDN [address] [facility], [address] [place] [address] [email or web address] 07/04/2025 10:20 AM EST Office Visit [facility] [address] [place] [address] Jacki Zacarias MD [address] [facility], [address] [place] [address] [email or web address] 07/07/2025 1:00 PM EST Appointment [facility] [address] [place] [address] Guillaume Chino, DO [address] [place] [address] [email or web address] 07/14/2025 9:30 AM EST Office Visit [facility] at [address] [address] Guillaume Chino, DO [address] [place] [address] [email or web address] documented as of this encounter Results * (ABNORMAL) Comprehensive metabolic panel (08/24/2018 10:47 AM EDT) SODIUM 142 133 - 146 mmol/L [facility] POTASSIUM 4.5 3.3 - 5.1 mmol/L [facility] CHLORIDE 104 96 - 108 mmol/L [facility] CO2 26 21 - 35 mmol/L [facility] BUN 12 6 - 19 mg/dL [facility] CREATININE 0.60 0.5 - 1.5 mg/dL [facility] GLUCOSE 153(H) 70 - 99 mg/dL [facility] ALBUMIN 4.2 3.9 - 4.8 g/dL [facility] TOTAL PROTEIN 7.2 6.5 - 8.0 g/dL [facility] CALCIUM 9.6 8.4 - 10.3 mg/dL [facility] ALKALINE PHOSPHATASE 80 39 - 117 U/L [facility] TOTAL BILIRUBIN 0.5 0.0 - 1.2 mg/dL [facility] Comment: Results from certain multiple myeloma patients may show a positive bias in recovery. Not all multiple myeloma patients show the bias and severity of the bias may vary between patients. In very rare cases, gammopathy, in particular type IgM (Waldenstrom's macroglobulinemia), may cause unreliable results. AST 26 0 - 37 U/L [facility] ALT 41(H) 0 - 40 U/L [facility] GLOBULIN 3.0 1 - 4.8 g/dL [facility] EGFR 96 >59 mL/min/1.7 3m2 [facility] Comment:If patient is black, multiply result by 1.159. Estimated glomerular filtration rate calculated using the CKD-EPI equation. ANION GAP 17 10 - 20 mmol/L [facility] Blood 08/24/2018 10:4 7 AM EDT 08/24/2018 11:09 AM EDT us Darinel A Bigda DO LAB BLOOD ORDERABLES Final Resul t Performing Organization Address City/State/[facility] Co de Phone Number [facility] [address] [place] [address] * (ABNORMAL) CBC (08/24/2018 10:47 AM EDT) WBC 6.82 3.40 - 11.20 K/uL [facility] RBC 4.89(H) 3.80 - 4.80 M/uL [facility] HGB 14.4 12.0 - 15.0 g/dL [facility] HCT 44.1 36.0 - 46.0 % [facility] PLT 234 130 - 400 K/uL [facility] MCV 90.2 79.0 - 98.0 fL [facility] MCH 29.4 27.0 - 34.8 pg [facility] MCHC 32.7 31.5 - 36.0 g/dL [facility] RDW 13.0 10.8 - 14.6 % [facility] MPV 11.1 9.4 - 12.4 fl [facility] NRBC 0.00 0.00 /100 WBCs [facility] ABSOLUTE NRBC 0.00 0.00 K/uL [facility] Blood 08/24/2018 10:4 7 AM EDT 08/24/2018 11:09 AM EDT us Darinel A Bigda DO LAB BLOOD ORDERABLES Final Resul t Performing Organization Address [facility] Co de Phone Number [address] [address] * Sedimentation rate (ESR) (08/24/2018 10:47 AM EDT) ESR 12 0 - 30 mm/h [facility] Blood 08/24/2018 10:4 7 AM EDT 08/24/2018 11:09 AM EDT us Darinel A Bigda DO LAB BLOOD ORDERABLES Final Resul t Performing Organization Address [facility] de Phone Number [address] [address] * (ABNORMAL) Hemoglobin A1c (08/24/2018 10:47 AM EDT) HEMOGLOBIN A1C 6.7(H) 4.3 - 5.8 % [facility] Blood 08/24/2018 10:4 7 AM EDT 08/24/2018 11:09 AM EDT us Darinel A Bigda DO LAB BLOOD ORDERABLES Final Resul t Performing Organization Address [facility] de Phone Number [address] [address] documented in this encounter Visit Diagnoses Diagnosis Acute abdominal pain syndrome- Primary Abdominal pain, unspecified site documented in this encounter Additional Health Concerns Infection Onset Date Last Indicated Resolved Time CoV-Risk 08/04/2021 08/04/2021 08/14/2021 1:23 AM EST CoV-Risk 04/16/2023 04/16/2023 04/27/2023 1:21 AM EST documented as of this encounter Care Teams Powerhouse Tender Relationship Specialty Start Date End Date SobiaDarinel berryDO PCP - General 03/24/17 12/05/24 SobiaDarinel berryDO [address] [place] [address] PCP - General Internal Medicine 12/06/24 Monique Darinel DesaiDO [address] [place] [address] Insurance Assigned Provider 10/10/18 12/12/18 Guillaume Chino DO [address] [place] [address] [email or web address] Primary Oncologist Hematology and Oncology 06/13/23 documented as of this encounter Additional Source Comments The information contained in this document represents components of the legal health record. It is not the complete legal health record.[facility]
--- OUTSIDE RECORDS SUMMARY | 2025-04-05 07:50 | XMS_ITS | Encounter Summary ---
Author Organization [facility] Address [address] [place] [address] Phone Care Team Providers Care Hand Salter Name Role Phone Darinel Amaya DO Primary Care Provider Guillaume Chino DO Unavailable [phone] Darinel Amaya DO Primary Care Provider [phone] Encounter Details Date Type Department Care Team (Late st Contact Info) Description 10/19/2024 Procedure Pass [facility], [facility] [address] [place] [address] Social History Tobacco Use Types Packs/Day Years Used Date Smoking Tobacco: Never Passive Smoke Exposure: Never Smokeless Tobacco: Never Alcohol Use Standard Drinks/Week Comments No 0 (1 standard drink = 0.6 oz pur e alcohol) Education Answer Date Recorded Are you interested in more education? Not on ryan e 10/04/2022 Are you concerned about learning? Not on file 10/04/2022 No 10/04/2022 No 10/04/2022 Digital Access Answer Date Recorded No 11/02/2022 No 11/02/2022 Reliable internet access at home? Not on file 11/02/2022 Device with a working camera? Not on file Intimate Partner Violence Answer Date R ecorded Are you denied basic needs s uch as food, clothing, or medical care? No 04/16/2023 In the past 12 months have y ou been in a relationship with a person who hurts, threatens, or tries to control you? No 04/16/2023 Are you denied basic needs s uch as food, clothing, or medical care? No 04/16/2023 In the past 12 months have y ou been in a relationship with a person who hurts, threatens, or tries to control you? No 04/16/2023 Comments No Sex and Gender Information Value Date Recorded Sex Assigned at Female 06/16/2017 9:38 AM EST Legal Sex Female 9:57 PM EDT Gender Identity Female 06/16/2017 9:38 AM EST Sexual Orientation Straight 06/16/2017 9: 38 AM EST documented as of this encounter Plan of Treatment Upcoming Encounters Date Type Department Care Team (Late st Contact Info) Description 05/16/2025 11:00 AM EST Nutrition [facility] [address] [place] [address] [place] [address] Yamilet Muñoz LDN [address] [place] [address] 07/04/2025 10:20 AM EST Office Visit [facility] [address] [place] [address] [place] [address] Jacki Zacarias MD [address] [place] [phone] 07/07/2025 1:00 PM EST Appointment [facility] [address] [place] [address] Guillaume Chino, DO [address] [place] [address] [email or web address] 07/14/2025 9:30 AM EST Office Visit [facility] at [address] [address] Guillaume Chino, DO [address] [place] [address] [email or web address] documented as of this encounter Visit Diagnoses Not on filedocumented in this encounter Care Teams Hand Salter Relationship Specialty Start Date End Date Darinel Amaya DO [email or web address] PCP - General 03/24/17 12/05/24 Darinel Amaya DO [address] [place] [address] [email or web address] PCP - General Internal Medicine 12/06/24 Guillaume Chino DO [address] [place] [address] [email or web address] Primary Oncologist Hematology and Oncology 06/13/23 documented as of this encounter Additional Source Comments The information contained in this document represents components of the legal health record. It is not the complete legal health record.[facility]
--- OUTSIDE RECORDS SUMMARY | 2025-04-05 07:50 | XMS_ITS | Encounter Summary ---
Author Organization [facility] Address [address] [place] [address] Phone Care Team Providers Care Elementary Education Teacher Name Role Phone Darinel Amaya DO Primary Care Provider [phone] Guillaume Chino DO Unavailable [phone] Darinel Amaya DO Primary Care Provider [phone] Encounter Details Date Type Department Care Team (Late st Contact Info) Description 05/15/2023 Procedure Pass [facility], [facility] [address] [place] [address] Social History Tobacco Use Types Packs/Day Years [...] Info) Description 05/16/2025 11:00 AM EST Nutrition [facility] [address] [place] [address] [place] [address] Yamilet Muñoz LDN [address] [place] [address] 07/04/2025 10:20 AM EST Office Visit [facility] [address] [place] [address] [place] [address] Jacki Zacarias MD [address] [place] [address] 07/07/2025 1:00 PM EST Appointment [facility] [address] [place] [address] Guillaume Chino, DO 30 [place] [address] [email or web address] .[facility] 07/14/2025 9:30 AM EST Office Visit [facility] at [address] [address] Guillaume Chino, DO [address] [place] [address] [email or web address] .[facility] documented as of this encounter Visit Diagnoses Not on filedocumented in this encounter Care Teams Elementary Education Teacher Relationship Specialty Start Date End Date Darinel Amaya DO [email or web address] PCP - General 03/24/17 12/05/24 Darinel Aamya DO [address] [place] [address] [email or web address] PCP - General Internal Medicine 12/06/24 Guillaume Chino DO [address] [place] [address] [email or web address] Primary Oncologist Hematology and Oncology 06/13/23 documented as of this encounter Additional Source Comments The information contained in this document represents components of the legal health record. It is not the complete legal health record.[facility]
--- OUTSIDE RECORDS SUMMARY | 2025-04-05 07:50 | XMS_ITS | Encounter Summary ---
Author Organization [facility] Address [address] [place] [address] Phone Care Team Providers Care Aircraft Engine Mechanic Supervisor Name Role Phone Darinel Amaya DO Primary Care Provider [phone] Guillaume Chino DO Unavailable [phone] Darinel Amaya DO Primary Care Provider [phone] Encounter Details Date Type Department Care Team (Late st Contact Info) Description 06/20/2023 Procedure Pass [facility], [facility] [address] [place] [address] Social History Tobacco Use Types Packs/Day Years [...] Info) Description 05/16/2025 11:00 AM EST Nutrition [facility] [address] [place] [address] [place] [address] Yamilet Muñoz LDN [address] [place] [address] 07/04/2025 10:20 AM EST Office Visit [facility] [address] [place] [address] [place] [address] Jacki Zacarias MD [address] [place] [address] [email or web address] 07/07/2025 1:00 PM EST Appointment [facility] [address] [place] [address] Guillaume hCino, DO 30 [place] [address] [email or web address] 07/14/2025 9:30 AM EST Office Visit [facility] at [address] [address] Guillaume Chino, DO [address] [place] [address] [email or web address] documented as of this encounter Visit Diagnoses Not on filedocumented in this encounter Care Teams Aircraft Engine Mechanic Supervisor Relationship Specialty Start Date End Date Darinel Amaya DO [email or web address] PCP - General 03/24/17 12/05/24 Darinel Amaya DO [address] [place] [address] [email or web address] PCP - General Internal Medicine 12/06/24 Guillaume Chino DO [address] [place] [address] [email or web address] Primary Oncologist Hematology and Oncology 06/13/23 documented as of this encounter Additional Source Comments The information contained in this document represents components of the legal health record. It is not the complete legal health record.[facility]
--- OUTSIDE RECORDS SUMMARY | 2025-04-05 07:50 | XMS_ITS | Encounter Summary ---
Author Organization [facility] Address [address] [place] [address] Phone Care Team Providers Care Commercial Loan Collection Officer Name Role Phone Darinel Amaya DO Primary Care Provider [phone] Guillaume Chino DO Unavailable [phone] Darinel Amaya DO Primary Care Provider [phone] Encounter Details Date Type Department Care Team ([facility] st Contact Info) Description 12/03/2024 Transcribe Orders Virtual Department [address] [place] [address] Darinel Amaya DO [address] [facility] [address] [place] [address] [email or web address] RUQ pain (Primary Dx) Social History Tobacco Use Types [...] your housing situation today? I have buster mcmullen 12/07/2024 How many times have you move [...] as food, clothing, or medical care? No 12/06/2024 In the past 12 months have y ou been in a relationship with a person who hurts, threatens, or tries to control you? No 12/06/2024 Are you denied basic needs s uch as food, clothing, or medical care? No 12/06/2024 In the past 12 months have y ou been in a relationship with a person who hurts, threatens, or tries to control you? No 12/06/2024 Comments No Sex and Gender Information Value Date Recorded Sex Assigned at Female 06/16/2017 9:38 AM EST Legal Sex Female 9:57 PM EDT Gender Identity Female 06/16/2017 9:38 AM EST Sexual Orientation Straight 06/16/2017 9: 38 AM EST documented as of this encounter Functional Status * Calculated C-SSRS Risk Score (Lifetime/Recent) Answer Date of Assessment Author No Risk Indicated 12/06/2024 8:07 PM JESSICAT Deborah Moznon RN * [place] Suicide Severity Rating Scale (Screener/Recent Self-Report) Question Answer Date of Assessment Author 1. Wish to be (Past 1 Month) No 025 8:07 PM Deborah Ruiz, KANE 2. Non-Specific Active Suici kade Thoughts (Past 1 Month) No 12/06/2024 8:07 PM EDT Saskia Monzon, KANE 6. Suicidal Behavior (Lifetime) No 8:07 PM EDT Deborah Monzon, KANE documented as of this encounter Plan of Treatment Upcoming Encounters Date Type Department Care Team (Late st Contact Info) Description 05/16/2025 11:00 AM EST Nutrition [facility] [address] [address] Yamilet Muñoz LDN [address] [place] [address] 07/04/2025 10:20 AM EST Office Visit [address] [address] Jacki Zacarias MD [address] [place] [address] 07/07/2025 1:00 PM EST Appointment [facility] [address] [place] [address] Guillaume Chino, [address] [address] [email or web address] 07/14/2025 9:30 AM EST Office Visit [facility] at [address] [address] Guillaume Chino, DO [address] [place] [address] [email or web address] documented as of this encounter Visit Diagnoses Diagnosis RUQ pain- Primary Abdominal pain, right upper quadrant documented in this encounter Care Teams Commercial Loan Collection Officer Relationship Specialty Start Date End Date Darinel Amaya DO PCP - General 03/24/17 12/05/24 Darinel Amaya DO [address] [place] [address] [email or web address] PCP - General Internal Medicine 12/06/24 Guillaume Chino DO [address] [place] [address] [email or web address] Primary Oncologist Hematology and Oncology 06/13/23 documented as of this encounter Additional Source Comments The information contained in this document represents components of the legal health record. It is not the complete legal health record.[facility]
--- OUTSIDE RECORDS SUMMARY | 2025-04-05 07:50 | XMS_ITS | Encounter Summary ---
Author Organization [facility] Address [address] [place] [address] Phone Care Team Providers Care Optimization Manager Name Role Phone Sobiakristi Darinel Desai DO Primary Care Provider [phone] Guillaume Chino DO Unavailable [phone] Darinel Amaya DO Primary Care Provider [phone] Encounter Details Date Type Department Care Team (Latest Contact Info) Description 08/06/2021 Transcribe Orders Virtual Department 30 [place] [address] Nicky Jackson NP 10 [place] [address] RUQ pain (Primary Dx) Social History Tobacco [...] Info) Description 05/16/2025 11:00 AM EST Nutrition [facility] 22 [place] [address] Yamilet Muñoz, ROSITA [address] [address] 07/04/2025 10:20 AM EST Office Visit [facility] [address] [place] [address] Jacki Zacarias MD [address] [address] [email or web address] 07/07/2025 1:00 PM EST Appointment [facility] [address] [place] [address] Guillaume Chino, DO [address] [place] [address] [email or web address] 07/14/2025 9:30 AM EST Office Visit [facility] 30 [place] [address] Guillaume Chino, [address] [address] [email or web address] documented as of this encounter Results * US ABDOMEN LIMITED RIGHT UPPER QUADRANT (08/29/2021 10:13 AM EDT) Anatomical Region Laterality Modality Abdomen Ultrasound 08/29/2021 11:2 8 AM EDT Impressions 08/29/2021 11:29 AM EDT Stable hepatic steatosis. No acute findings. Narrative 08/29/2021 11:29 AM EDT COMPARISON: 06/05/2017. LIMITED ABDOMEN ULTRASOUND FINDINGS: Liver: Stable mild diffuse increased echogenicity. No focal lesions. Gallbladder: Normal. Previous 3 mm potential polyp is not identified. Common bile duct: Normal-3 mm. Pancreas: Imaged pancreas is normal. The pancreatic tail is obscured by bowel gas. Right Kidney: No hydronephrosis. Proximal abdominal aorta/IVC/Main Portal Vein: Unremarkable. Procedure Note Aayush Enamorado MD - 08/29/2021 COMPARISON: 06/05/2017. LIMITED ABDOMEN ULTRASOUND FINDINGS: Liver: Stable mild diffuse increased echogenicity. No focal lesions. Gallbladder: Normal. Previous 3 mm potential polyp is not identified. Common bile duct: Normal-3 mm. Pancreas: Imaged pancreas is normal. The pancreatic tail is obscured bybowel gas. Right Kidney: No hydronephrosis. Proximal abdominal aorta/IVC/Main Portal Vein: Unremarkable. IMPRESSION: Stable hepatic steatosis. No acute findings. us Nicky Jackson [facility] IMG US ABDOMEN Final Res ult documented in this encounter Visit Diagnoses Diagnosis RUQ pain- Primary Abdominal pain, right upper quadrant RUQ pain Abdominal pain, right upper quadrant documented in this encounter Additional Health Concerns Infection Onset Date Last Indicated Resolved Time CoV-Risk 08/04/2021 08/04/2021 08/14/2021 1:23 AM EST CoV-Risk 04/16/2023 04/16/2023 04/27/2023 1:21 AM EST documented as of this encounter Care Teams Optimization Manager Relationship Specialty Start Date End Date Darinel Amaya DO PCP - General 03/24/17 12/05/24 Darinel Amaya DO [address] [place] [address] [email or web address] PCP - General Internal Medicine 12/06/24 Guillaume Chino DO 30 [place] [address] [email or web address] Primary Oncologist Hematology and Oncology 06/13/23 documented as of this encounter Additional Source Comments The information contained in this document represents components of the legal health record. It is not the complete legal health record.[facility]
--- OUTSIDE RECORDS SUMMARY | 2025-04-05 07:50 | XMS_ITS | Encounter Summary ---
Author Organization [facility] Address [address] [place] [address] Phone Care Team Providers Care Vice President Quality Assurance Name Role Phone Matti Guillaume Alvares DO Unavailable Darinel Amaya DO Primary Care Provider [phone] Encounter Details Date Type Department Care Team ([facility] st Contact Info) Description 12/16/2024 Ancillary Orders Virtual Department 30 [place] [address] Darinel Amaya DO [address] [facility] [place] [address] [place] [address] [email or web address] RUQ pain (Primary Dx) Social History Tobacco [...] Info) Description 05/16/2025 11:00 AM EST Nutrition [facility] [address] [place] [address] Yamilet Muñoz LDN [address] [place] [address], 1[address] [place] [address] 07/04/2025 10:20 AM EST Office Visit [facility] [address] [place] [address] Jacki Zacarias MD 22 [facility], 1st [place] [address] [email or web address] 07/07/2025 1:00 PM EST Appointment [facility] [address] [place] [address] Matti Guillaume Alvares, DO 30 [place] [address] [email or web address] 07/14/2025 9:30 AM EST Office Visit [facility] [place] 30 [place] [address] Matti Guillaume Alvares, DO [address] [place] [address] [email or web address] documented as of this encounter Results * US ABDOMEN LIMITED RIGHT UPPER QUADRANT (12/16/2024 9:08 AM EDT) Anatomical Region Laterality Modality Abdomen Ultrasound 12/16/2024 10:2 5 AM EDT Impressions 12/16/2024 10:27 AM EDT 1. There is diffusely increased hepatic echogenicity, likely representing fatty infiltration. Narrative 12/16/2024 10:27 AM EDT US ABDOMEN LIMITED RIGHT UPPER QUADRANT Referring clinician's provided indication for this examination in Epic: Outside Radiology Order; abdomen pain TECHNIQUE: US Abdominal limited right upper quadrant. COMPARISON: 08/29/2021, 09/11/2018 FINDINGS: Liver: Diffusely increased echogenicity consistent with fatty liver. Main Portal Vein: Patent with normal direction of flow. Gallbladder: No gallstones or gallbladder wall thickening. Workman's Sign: Negative. Biliary: No intrahepatic or extrahepatic biliary ductal dilatation. The common bile duct measures 3 mm. Right Kidney: No stones or hydronephrosis. The right kidney measures 9.5 cm Procedure Note Kadie Allen MD - 12/16/2024 US ABDOMEN LIMITED RIGHT UPPER QUADRANT Referring clinician's provided indication for this examination in [facility]:Outside Radiology Order; abdomen pain TECHNIQUE: US Abdominal limited right upper quadrant. COMPARISON: 08/29/2021, 09/11/2018 FINDINGS: Liver: Diffusely increased echogenicity consistent with fatty liver. Main Portal Vein: Patent with normal direction of flow. Gallbladder: No gallstones or gallbladder wall thickening. Workman's Sign: Negative. Biliary: No intrahepatic or extrahepatic biliary ductal dilatation. The common bile duct measures 3 mm. Right Kidney: No stones or hydronephrosis. The right kidney measures 9.5cm IMPRESSION: 1. There is diffusely increased hepatic echogenicity, likely representingfatty infiltration. us Darinel Amaya DO IMG US ABDOMEN Final Result documented in this encounter Visit Diagnoses Diagnosis RUQ pain Abdominal pain, right upper quadrant RUQ pain- Primary Abdominal pain, right upper quadrant documented in this encounter Care Teams Vice President Quality Assurance Relationship Specialty Start Date End Date Darinel Amaya DO [address] [place] [address] [email or web address] PCP - General Internal Medicine 12/06/24 Guillaume Chino DO [address] [place] [address] [email or web address] Primary Oncologist Hematology and Oncology 06/13/23 documented as of this encounter Additional Source Comments The information contained in this document represents components of the legal health record. It is not the complete legal health record.[facility]
--- OUTSIDE RECORDS SUMMARY | 2025-04-05 07:50 | XMS_ITS | Encounter Summary ---
Author Organization [facility] Address [address] [place] [address] Phone Care Team Providers Care Marina Sales And Service Supervisor Name Role Phone Darinel Amaya DO Primary Care Provider [phone] Guillaume Chino DO Unavailable [phone] Darinel Amaya DO Primary Care Provider [phone] Encounter Details Date Type Department Care Team (Late st Contact Info) Description 10/19/2024 Ancillary Orders [address] [address] Kesha Bynum PA [address] [facility] [place] [address] [place] [address] Pain (Primary Dx) Social History Tobacco Use Types [...] Info) Description 05/16/2025 11:00 AM EST Nutrition [facility] [address] [place] [address] Yamilet Muñoz LDN [address] [place] [address] 07/04/2025 10:20 AM EST Office Visit [facility] [address] [place] [address] Jacki Zacarias MD [address] [place] [address] 07/07/2025 1:00 PM EST Appointment [facility] [address] [place] [address] Guillaume Chino, DO 30 [place] [address] [email or web address] .[email or web address] 07/14/2025 9:30 AM EST Office Visit [facility] at [address] [address] Guillaume Chino, DO 30 [place] [address] [email or web address] documented as of this encounter Results * BI US BREAST LIMITED (LEFT) (10/19/2024 1:10 PM EDT) Anatomical Region Laterality Modality Breast Left, Breast Bilateral Left Ul trasound 10/19/2024 1:12 PM EDT Impressions 10/19/2024 1:14 PM EDT 1. Benign findings, post needle biopsy changes, on the right. No mammographic evidence of malignancy in the right breast. 2. No imaging findings to account for the clinical symptoms of left breast pain. Management of breast pain should be based on the level of clinical concern. Negative imaging findings should not preclude biopsy of any clinically suspicious finding. BI-RADS 2 BENIGN Results and recommendations were communicated to the patient at time of examination. Narrative 10/19/2024 1:14 PM EDT BI MAMMOGRAM DIAGNOSTIC WITH TOMOSYNTHESIS WITH CAD (BILATERAL), BI US BREAST LIMITED (LEFT) Additional patient information: Focal pain in the left breast. 6 month follow-up status post benign right breast stereotactic biopsy. COMPARISON: Comparison is made with relevant prior imaging. Breast composition: There are scattered areas of fibroglandular density. FINDINGS: Right Mammogram: Previous needle biopsy, the top hat shape clip is appropriately positioned in the upper inner quadrant at a posterior depth. No abnormal masses, suspicious calcifications, or other significant findings are identified mammographically in the right breast. Left Mammogram: There is no focal or suspicious mammographic correlate for the area of clinical concern. No abnormal masses, suspicious calcifications, or other significant findings are identified mammographically in the left breast. Left Ultrasound: Targeted ultrasound was performed in the area of clinical concern as indicated by the patient. No sonographic abnormality is seen. us Kesha JIMENEZ IMG US BREAST Final Resul t documented in this encounter Visit Diagnoses Diagnosis Pain- Primary Generalized pain Pain Generalized pain documented in this encounter Care Teams Marina Sales And Service Supervisor Relationship Specialty Start Date End Date Darinel Amaya DO [email or web address] PCP - General 03/24/17 12/05/24 Darinel Amaya DO [address] [place] [address] [email or web address] PCP - General Internal Medicine 12/06/24 Guillaume Chino DO [address] [place] [address] [email or web address] Primary Oncologist Hematology and Oncology 06/13/23 documented as of this encounter Additional Source Comments The information contained in this document represents components of the legal health record. It is not the complete legal health record.[facility]
--- OUTSIDE RECORDS SUMMARY | 2025-04-05 07:50 | XMS_ITS | Encounter Summary ---
Author Organization [facility] Address [address] [facility] [address] [place] [address] Phone Care Team Providers Care Phonograph Mechanic Name Role Phone Darinel Amaya DO Primary Care Provider [phone] Sobiada, Darinel Desai DO Unavailable MattiGuillaume DO Unavailable [phone] Bigda, Darinel Desai DO Primary Care Provider [phone] Reason for Referral * MRI/CAT Scan - Closed Specialty Diagnoses / Procedures Referred By Susy mims Referred To Contact Radiology Diagnoses Chest pain, unspecified type MARK (dyspnea on exertion) Type 2 diabetes mellitus with diabetic neuropathy, with long-term current use of insulin Procedures NC Myocardial Perfusion Rest Single NC Myocardial Perfusion Exercise Multiple Amy Harris PA Phone: tel: fax: Referral ID Status Reason Start Date Expiration Date Visits Re quested Visits Authorized [id number] Closed 07/15/2018 09/12/2018 1 1 Encounter Details Date Type Department Care Team (Latest Contact Info) Description 07/22/2018 Ancillary Orders [facility] [address] Floor, [address] [place] [address] Amy Harris PA [address] [place] [address] Chest pain, unspecified type; MARK (dyspnea on exertion); Type 2 diabetes mellitus with diabetic neuropathy, with long-term current use of insulin Social History Tobacco Use Types Packs/Day Years [...] Info) Description 05/16/2025 11:00 AM EST Nutrition [facility] [address] [place] [address] Yamilet Muñoz LDN [address] [place] [address] 07/04/2025 10:20 AM EST Office Visit [facility] [address] [place] [address] [place] [address] Jacki Zacarias MD [address] [place] [address] 07/07/2025 1:00 PM EST Appointment [facility] [address] [place] [address] Guillaume Chino, DO [address] [place] [address] [email or web address] [facility] 07/14/2025 9:30 AM EST Office Visit [facility] at [address] [address] Guillaume Chino, DO [address] [place] [address] [email or web address] documented as of this encounter Results * NC Myocardial Perfusion Rest Single (07/22/2018 9:28 AM EST) Nuc Stress EF 65 % LV Systolic Volume Index 29 mL/m2 LV Diastolic Volume Index 82 mL/m2 Anatomical Region Laterality Modality Heart, Vascular Ultrasound Addenda Addendum by Lan Garcia MD on 08/26/2018 9:11 AM EDT Normal study. There is no evidence of myocardial infarction or ischemia. Normal LV size and function with no regional wall motion abnormalities. Very low likelihood of hemodynamically significant coronary artery disease. Low risk study for myocardial events or cardiac in the next two years. Nuclear Study Quality Overall image quality is good. TYPE OF STUDY: Myocardial Perfusion Imaging after exercise utilizing a standard Gurmeet protocol with gated SPECT. PROTOCOL USED: One day stress protocol only in the supine and prone position. Images were obtained after 20 minutes in gated tomographic technique. Images were processed in SPECT format, reconstructed tomographically and compared [id number] in short axis, horizontal long axis and vertical long axis. DOSE: Technetium 99m Sestamibi 12.0 mCi injected intravenously during stress on 07/22/2018 with post injection scan time of 20 minutes. . There are no artifacts present. Study was gated successfully.. Perfusion Defect The lung to heart ratio is 0.28. Response to Stress Patient exercised for 6:18 minutes on a standard Gurmeet protocol achieving 7.8 METs and 92% MPHR (156 BPM). The test was terminated due to fatigue. SUMMARY: 1. RESTING ECG: Sinus rhythm with nonspecific ST/T wave abnormalities 2. EXERCISE ECG: No ischemic changes with exercise. 3. SYMPTOMS: Reported shortness of breath early into stage II, this resolved spontaneously in recovery. 4. PHYSIOLOGY: Appropriate exercise physiology. Resting heart rate of 88 bpm stacey to a max heart rate of 144 bpm, this represents 92% MPHR. Resting BP of 122/70 stacey to a max BP of 158/78. Vital signs stable and returned to baseline prior to discharge from the lab. Achieved 7.8 METs consistent with average functional capacity for age. 5. ARRHYTHMIA: Rare isolated PAC CONCLUSION: Normal ECG portion of exercise stress test without ECG changes suggestive of ischemia and without symptoms concerning for angina. Appropriate exercise physiology. Average functional capacity. Nuclear images and report to follow. See attached stress report for full details. Everett Travis, BRANDAN . Stress Function Comments Post-stress ejection fraction was 65%. Stress end diastolic index: 82 mL/m2. Stress end systolic index: 29 mL/m2. Nuclear Prior Study There is no prior study available for comparison. Perfusion Scoring Stress Summed Score: 0 Percent Normal: 0.00% The left ventricular perfusion is normal. us Amy JIMENEZ CV NM CARDIAC Edited Res ult - Final documented in this encounter Visit Diagnoses Diagnosis Chest pain, unspecified type MARK (dyspnea on exertion) Other dyspnea and respiratory abnormality Type 2 diabetes mellitus with diabetic neuropathy, with long-term current use of insulin Chest pain, unspecified type MARK (dyspnea on exertion) Other dyspnea and respiratory abnormality Type 2 diabetes mellitus with diabetic neuropathy, with long-term current use of insulin documented in this encounter Additional Health Concerns Infection Onset Date Last Indicated Resolved Time CoV-Risk 08/04/2021 08/04/2021 08/14/2021 1:23 AM EST CoV-Risk 04/16/2023 04/16/2023 04/27/2023 1:21 AM EST documented as of this encounter Care Teams Phonograph Mechanic Relationship Specialty Start Date End Date Darinel Amaya DO PCP - General 03/24/17 12/05/24 Darinel Amaya DO [address] [place] [address] [email or web address] PCP - General Internal Medicine 12/06/24 Darinel Amaya DO [address] [place] [address] Insurance Assigned Provider 10/10/18 12/12/18 Guillaume Chino DO [address] [place] [address] [email or web address]. [email or web address] Primary Oncologist Hematology and Oncology 06/13/23 documented as of this encounter Additional Source Comments The information contained in this document represents components of the legal health record. It is not the complete legal health record.[facility]
--- OUTSIDE RECORDS SUMMARY | 2025-04-05 07:50 | XMS_ITS | Encounter Summary ---
Author Organization [facility] Address [address] [facility] [address] [place] [address] Phone Care Team Providers Care Manager Integrity Name Role Phone Darinel Amaya DO Primary Care Provider [phone] Guillaume Chino DO Unavailable [phone] Darinel Amaya DO Primary Care Provider [phone] Encounter Details Date Type Department Care Team ([facility] st Contact Info) Description 12/05/2023 Transcribe Orders Virtual Department [address] [place] [address] Darinel Amaya DO [address] [facility] [place] [address] [place] [address] [email or web address] Breast screening (Primary Dx) Social History Tobacco Use Types [...] Info) Description 05/16/2025 11:00 AM EST Nutrition [facility] [address] [place] [address] Yamilet Muñoz LDN [address] [place] [address] 07/04/2025 10:20 AM EST Office Visit [facility] [address] [place] [address] Jacki Zacarias MD [address] [place] [address] 07/07/2025 1:00 PM EST Appointment [facility] [address] [place] [address] Guillaume Chino, DO [address] [place] [address] [email or web address] 07/14/2025 9:30 AM EST Office Visit [facility] Center at [address] [address] Guillaume Chino, DO [address] [place] [address] [email or web address] documented as of this encounter Visit Diagnoses Diagnosis Breast screening- Primary Breast screening, unspecified documented in this encounter Care Teams Manager Integrity Relationship Specialty Start Date End Date Darinel Amaya DO [email or web address] PCP - General 03/24/17 12/05/24 Darinel Amaya DO [address] [place] [address] [email or web address] PCP - General Internal Medicine 12/06/24 Guillaume Chino DO [address] [place] [address] [email or web address] Primary Oncologist Hematology and Oncology 06/13/23 documented as of this encounter Additional Source Comments The information contained in this document represents components of the legal health record. It is not the complete legal health record.[facility]
--- OUTSIDE RECORDS SUMMARY | 2025-04-05 07:50 | XMS_ITS | Encounter Summary ---
Author Organization [facility] Address [address] [facility] [address] [place] [address] Phone Care Team Providers Care Casino Host Name Role Phone Darinel Amaya DO Primary Care Provider [phone] Guillaume Chino DO Unavailable [phone] Darinel Amaya DO Primary Care Provider [phone] Encounter Details Date Type Department Care Team (Late st Contact Info) Description 02/09/2020 Ancillary Orders Virtual Department [address] [place] [address] Darinel Amaya DO [address] [facility] [place] [address] [place] [address] [email or web address] Osteopenia, unspecified location; Other specified disorders of bone density and structure, unspecified site Social History Tobacco Use Types Packs/Day Years [...] Info) Description 05/16/2025 11:00 AM EST Nutrition [facility] [address] [place] [address] Yamilet Muñoz LDN [address] [address] [email or web address] 07/04/2025 10:20 AM EST Office Visit [facility] [address] [place] [address] Jacki Zacarias MD [address] [address] [email or web address] 07/07/2025 1:00 PM EST Appointment [facility] [address] [place] [address] Guillaume Chino, DO [address] [place] [address] [email or web address] 07/14/2025 9:30 AM EST Office Visit [facility] at [address] [address] Guillaume Chino, DO [address] [place] [address] [email or web address] documented as of this encounter Visit Diagnoses Diagnosis Osteopenia, unspecified location Other specified disorders of bone density and structure, unspecified site documented in this encounter Additional Health Concerns Infection Onset Date Last Indicated Resolved Time CoV-Risk 08/04/2021 08/04/2021 08/14/2021 1:23 AM EST CoV-Risk 04/16/2023 04/16/2023 04/27/2023 1:21 AM EST documented as of this encounter Care Teams Casino Host Relationship Specialty Start Date End Date Darinel Amaya DO [email or web address] PCP - General 03/24/17 12/05/24 Darinel Amaya DO [address] [place] [address], [place] [address] [email or web address] PCP - General Internal Medicine 12/06/24 Guillaume Chino DO 30 [place] [address] [email or web address] Primary Oncologist Hematology and Oncology 06/13/23 documented as of this encounter Additional Source Comments The information contained in this document represents components of the legal health record. It is not the complete legal health record.[facility]
--- OUTSIDE RECORDS SUMMARY | 2025-04-05 07:50 | XMS_ITS | Encounter Summary ---
Author Organization [facility] Address [address] [facility] [address] [place] [address] Phone Care Team Providers Care Poultry Processing Supervisor Name Role Phone Narinder Cummins DO Primary Care Provider [phone] Guillaume Chino DO Unavailable [phone] Narinder Cummins DO Primary Care Provider [phone] Encounter Details Date Type Department Care Team ([facility] st Contact Info) Description 04/07/2024 Transcribe Orders Virtual Department [address] [place] [address] Narinder Cummins DO [address] [facility] [place] [address] [place] [address] [email or web address] Encounter for screening for osteoporosis (Primary Dx) Social History Tobacco Use Types [...] Info) Description 05/16/2025 11:00 AM EST Nutrition [facility] [address] [address] Yamilet Muñoz LDN [address] [place] [address] 07/04/2025 10:20 AM EST Office Visit [facility] [address] [place] [address] Jacki Zacarias MD [address] [place] [address] 07/07/2025 1:00 PM EST Appointment [facility] [address] [place] [address] Guillaume Chino, DO [address] [place] [address] [email or web address] 07/14/2025 9:30 AM EST Office Visit [facility] Center at [address] [address] Guillaume Chino, DO [address] [place] [address] [email or web address] documented as of this encounter Results * BD DXA AXIAL (SPINE) WITH HIP (08/26/2024 1:49 PM EDT) Anatomical Region Laterality Modality Bone Density Bone Density 08/26/2024 1:44 PM EDT Impressions 08/30/2024 8:35 AM EDT Interpretation: Osteopenia. Narrative 08/30/2024 8:35 AM EDT Referred By: NARINDER CUMMINS Indications: Osteoporosis Scanner: BuzzDoes A with serial# of [id number] located at [facility] Bone Density Scan (DXA) 08/26/24 Details of prior DXA scans are available by clicking View Full Report BMD T- Z- Skeletal Site gm/cm2 score score BMD Change Since Prior Scan ------ ----- ----- PA Spine (L1-L4) 0.852 -1.80 0.40 N/A Total Hip (Left) 0.967 0.20 1.80 N/A Femoral Neck (Left) 0.749 -0.90 1.00 N/A Total Hip (Right) 0.955 0.10 1.70 N/A Femoral Neck (Right) 0.840 -0.10 1.80 N/A ------ ----- ----- * Denotes significant change when >= 0.022 g/cm2 for the spine, 0.027 g/cm2 for the total hip, 0.029 g/cm2 for the femoral neck. Interpretation: Osteopenia. Technical Quality: Imaging of all sites was of adequate quality. FRAX: Based on FRAX(r) 3.6 ([place] White female), this patient's likelihood of hip fracture is 0.7% and major osteoporotic fracture is 8% over the next 10 years. The patient reported no risks of fracture. Reviewed By: Jess Sawant MD on 08/30/2024 08:35:02 Additional Information: -World Health Organization criteria classify adults based on lowest T-score at PA spine, hip or forearm: Normal (T-score >= -1.0), Osteopenia (T-score between -1 and -2.5), or Osteoporosis (T-score <= -2.5). At [facility], T-scores are compared to peak bone density of a young white gender matched reference population. - For premenopausal women and men under the age of 50, Z-scores (comparison to age, gender, and ethnicity matched reference population) are used: Above expected range for age (Z-score >= 2.0), Within expected range of age (Z-score 1.9 to -1.9), or Below expected range for age (Z-score <= -2.0). - The Bone Health and Osteoporosis Foundation recommends that treatment be considered in men aged more than 50 years and in postmenopausal women with ANY of the following: Prior hip or vertebral fractures; T-score of <= -2.5 at the PA spine or hip; or 10 year fracture probability by FRAX of >= 3% for the hip or >= 20% for major osteoporotic fracture. - The FRAX algorithm (https://www.tiffany.ac.uk/FRAX/tool.aspx) is designed to predict 10-year fracture risk in treatment-naive adults between the ages of 40 and 90. It is not intended to be used in those receiving pharmacologic osteoporosis treatment. - The TBS is derived from the texture of the DXA spine image and has been shown to be related to bone microarchitecture and fracture risk. This data provides information independent of BMD value. It adds to fracture risk assessment with a FRAX adjusted for TBS score. If your patient had a TBS and qualified for a FRAX score, the reported FRAX score has been adjusted for TBS. TBS Score Interpretation 1.350 and greater Normal bone microarchitecture 1.200 to 1.350 Partially degraded bone microarchitecture 1.200 and less Degraded bone microarchitecture - Including race/ethnicity in the generation of T- or Z-scores or in the FRAX calculation is complicated, and currently undergoing active review to ensure that we can give patients the best information on their risk of fracture. - Some prior studies may not be compatible with our comparison software. - Click on View Full Report to see subsequent pages with images and prior bone density results. Procedure Note Jess Sawant MD - 08/30/2024 Referred By: NARINDER CUMMINS Indications: Osteoporosis Scanner: BuzzDoes A with serial# of [id number] located at [facility] Bone Density Scan (DXA) 08/26/24 Details of prior DXA scans are available by clicking View Full Report BMD T- Z- Skeletal Site gm/cm2 score score BMD Change Since Prior Scan ------ ----- PA Spine (L1-L4) 0.852 -1.80 0.40 N/A Total Hip (Left) 0.967 0.20 1.80 N/A Femoral Neck (Left) 0.749 -0.90 1.00 N/A Total Hip (Right) 0.955 0.10 1.70 N/A Femoral Neck (Right) 0.840 -0.10 1.80 N/A ------ ----- * Denotes significant change when >= 0.022 g/cm2 for the spine, 0.027g/cm2 for the total hip, 0.029 g/cm2 for the femoral neck. Interpretation: Osteopenia. Technical Quality: Imaging of all sites was of adequate quality. FRAX: Based on FRAX(r) 3.6 ([place]. White female), this patient's likelihoodof hip fracture is 0.7% and major osteoporotic fracture is 8% over the next10 years. The patient reported no risks of fracture. Reviewed By: Jess Sawant MD on 08/30/2024 08:35:02 Additional Information: -World Health Organization criteria classify adults based on lowestT-score at PA spine, hip or forearm: Normal (T-score >= -1.0), Osteopenia (T-score between -1 and -2.5), or Osteoporosis (T-score <= -2.5). At [facility], T-scores are compared to peak bone density of a young white gender matched reference population. - For premenopausal women and men under the age of 50, Z-scores(comparison to age, gender, and ethnicity matched reference population) are used:Above expected range for age (Z-score >= 2.0), Within expected range of age (Z-score 1.9 to -1.9), or Below expected range for age (Z-score <= -2.0). - The Bone Health and Osteoporosis Foundation recommends that treatment be considered in men aged more than 50 years and in postmenopausal women with ANY of the following: Prior hip or vertebral fractures; T-score of <= -2.5 at the PA spine or hip; or 10 year fracture probability by FRAX of >= 3%for the hip or >= 20% for major osteoporotic fracture. - The FRAX algorithm (https://www.tiffany.ac.uk/FRAX/tool.aspx) is designed to predict 10-year fracture risk in treatment-naive adultsbetween the ages of 40 and 90. It is not intended to be used in those receiving pharmacologic osteoporosis treatment. - The TBS is derived from the texture of the DXA spine image and has been shown to be related to bone microarchitecture and fracture risk. This data provides information independent of BMD value. It adds to fracture risk assessment with a FRAX adjusted for TBS score. If your patient had a TBSand qualified for a FRAX score, the reported FRAX score has been adjusted for TBS. TBS Score Interpretation 1.350 and greater Normal bone microarchitecture 1.200 to 1.350 Partially degraded bone microarchitecture 1.200 and less Degraded bone microarchitecture - Including race/ethnicity in the generation of T- or Z-scores or in the FRAX calculation is complicated, and currently undergoing active review to ensure that we can give patients the best information on their risk of fracture. - Some prior studies may not be compatible with our comparison software. - Click on View Full Report to see subsequent pages with images andprior bone density results. IMPRESSION: Interpretation: Osteopenia. us Narinder Cummins DO IMG BD BONE DENSITY DEXA Final R esult documented in this encounter Visit Diagnoses Diagnosis Encounter for screening for osteoporosis- Primary Encounter for screening for osteoporosis documented in this encounter Care Teams Poultry Processing Supervisor Relationship Specialty Start Date End Date Narinder Cummins DO PCP - General 03/24/17 12/05/24 Narinder Cummins DO [address] [place] [address] PCP - General Internal Medicine 12/06/24 Guillaume Chino DO [address] [place] [address] [email or web address] Primary Oncologist Hematology and Oncology 06/13/23 documented as of this encounter Additional Source Comments The information contained in this document represents components of the legal health record. It is not the complete legal health record.[facility]
--- OUTSIDE RECORDS SUMMARY | 2025-04-05 07:50 | XMS_ITS | Encounter Summary ---
Author Organization [facility] Address [address] [facility] [address] [place] [address] Phone Care Team Providers Care Rn Faculty Name Role Phone Darinel Amaya DO Primary Care Provider [phone] Guillaume Chino DO Unavailable [phone] Darinel Amaya DO Primary Care Provider [phone] Encounter Details Date Type Department Care Team (Late st Contact Info) Description 12/31/2023 Procedure [facility] [address] [place] [address] Social History Tobacco Use Types Packs/Day Years [...] Info) Description 05/16/2025 11:00 AM EST Nutrition [facility] [address] [place] [address] [place] [address] Yamilet Muñoz LDN [address] [place] [address] 07/04/2025 10:20 AM EST Office Visit [facility] [address] [place] [address] [place] [address] Jacki Zacarias MD [address] [place] [address] 07/07/2025 1:00 PM EST Appointment [facility] [address] [place] [address] Guillaume Chino, DO [address] [place] [address] [email or web address] [email or web address] 07/14/2025 9:30 AM EST Office [facility] at [address] [address] Guillaume Chino, DO [address] [place] [address] [email or web address] [email or web address] documented as of this encounter Visit Diagnoses Not on filedocumented in this encounter Care Teams Rn Faculty Relationship Specialty Start Date End Date Darinel Amaya DO [email or web address] PCP - General 03/24/17 12/05/24 Darinel Amaya DO [address] [place] [address] [email or web address] PCP - General Internal Medicine 12/06/24 Guillaume Chino DO [address] [place] [address] [email or web address] Primary Oncologist Hematology and Oncology 06/13/23 documented as of this encounter Additional Source Comments The information contained in this document represents components of the legal health record. It is not the complete legal health record.[facility]
--- OUTSIDE RECORDS SUMMARY | 2025-04-05 07:50 | XMS_ITS | Encounter Summary ---
Author Organization [facility] Address [address] [facility] [address] [place] [address] Phone Care Team Providers Care Market Editor Name Role Phone Darinel Amaya DO Primary Care Provider [phone] Guillaume Chino DO Unavailable [phone] Darinel Amaya DO Primary Care Provider [phone] Encounter Details Date Type Department Care Team (Late st Contact Info) Description 07/17/2020 Ancillary Orders Virtual Department 30 [place] [address] Darinel Amaya DO 179 [facility] [place] [address] [place] [address] [email or web address] Other specified disorders of bone density and structure, unspecified site; Osteopenia, unspecified location; Left foot pain Social History Tobacco Use Types Packs/Day Years [...] Info) Description 05/16/2025 11:00 AM EST Nutrition [facility] [address] [place] [address] Yamilet Muñoz LDN [address] [address] [email or web address] 07/04/2025 10:20 AM EST Office Visit [facility] [address] [place] [address] Jacki Zacarias MD [address] [address] 07/07/2025 1:00 PM EST Appointment [facility] Laboratory [address] [place] [address] Guillaume Chino, DO [address] [place] [address] [email or web address] 07/14/2025 9:30 AM EST Office Visit [facility] at [address] [address] Guillaume Chnio, DO [address] [place] [address] [email or web address] documented as of this encounter Visit Diagnoses Diagnosis Other specified disorders of bone density and structure, unspecified site Osteopenia, unspecified location Left foot pain Pain in soft tissues of limb documented in this encounter Additional Health Concerns Infection Onset Date Last Indicated Resolved Time CoV-Risk 08/04/2021 08/04/2021 08/14/2021 1:23 AM EST CoV-Risk 04/16/2023 04/16/2023 04/27/2023 1:21 AM EST documented as of this encounter Care Teams Market Editor Relationship Specialty Start Date End Date Darinel Amaya DO [email or web address] PCP - General 03/24/17 12/05/24 Darinel Amaya DO [address] [place] [address] [email or web address] PCP - General Internal Medicine 12/06/24 Guillaume Chino DO 30 [place] [address] [email or web address] Primary Oncologist Hematology and Oncology 06/13/23 documented as of this encounter Additional Source Comments The information contained in this document represents components of the legal health record. It is not the complete legal health record.[facility]
--- OUTSIDE RECORDS SUMMARY | 2025-04-05 07:50 | XMS_ITS | Encounter Summary ---
Author Organization [facility] Address [address] [place] [address] Phone Care Team Providers Care Vice President Of Procurement Name Role Phone Sobiakristi Darinel Desai DO Primary Care Provider [phone] Guillaume Chino DO Unavailable [phone] Darinel Amaya DO Primary Care Provider [phone] Encounter Details Date Type Department Care Team (Latest Contact Info) Description 10/19/2024 Ancillary Orders Virtual Department 30 [place] [address] Kesha Bynum PA [address] [place] [address] [place] [address] Other abnormal and inconclusive findings on diagnostic imaging of breast (Primary Dx) Social History Tobacco Use Types [...] Info) Description 05/16/2025 11:00 AM EST Nutrition [facility] [address] [place] [address] Yamilet Muñoz LDN [address] [place] [address] 07/04/2025 10:20 AM EST Office Visit [facility] [address] [place] [address] Jacki Zacarias MD [address] [place] [address] 07/07/2025 1:00 PM EST Appointment [facility] [address] [place] [address] Guillaume Chino, DO 30 [place] [address] [email or web address] 07/14/2025 9:30 AM EST Office Visit [facility] at [address] [address] Guillaume Chino, DO 30 [place] [address] [email or web address] documented as of this encounter Results * BI MAMMOGRAM DIAGNOSTIC WITH TOMOSYNTHESIS WITH CAD (BILATERAL) (10/19/2024 12:54 PM EDT) Anatomical Region Laterality Modality Breast Left, Breast Right, Breast Bilateral Bila teral Mammography 10/19/2024 1:12 PM EDT Impressions 10/19/2024 1:14 [...] abnormality is seen. us Kesha JIMENEZ IMG MG EXAMS Final Resul t documented in this encounter Visit Diagnoses Diagnosis Other abnormal and inconclusive findings on diagnostic imaging of breast Other abnormal and inconclusive findings on diagnostic imaging of breast- Primary documented in this encounter Care Teams Vice President Of Procurement Relationship Specialty Start Date End Date Darinel AmayaDO [email or web address] PCP - General 03/24/17 12/05/24 Darinel Amaya GiselleDO [address] [place] [address] [email or web address] PCP - General Internal Medicine 12/06/24 Guillaume Chino DO [address] [place] [address] [email or web address] Primary Oncologist Hematology and Oncology 06/13/23 documented as of this encounter Additional Source Comments The information contained in this document represents components of the legal health record. It is not the complete legal health record.[facility]
--- OUTSIDE RECORDS SUMMARY | 2025-04-05 07:50 | XMS_ITS | Encounter Summary ---
Author Organization [facility] Address [address] [address] Phone Care Team Providers Care Russian History Professor Name Role Phone Darinel Amaya DO Primary Care Provider [phone] Darinel Amaya DO Unavailable Guillaume Chino DO Unavailable [phone] Bigda, Darinel Desai DO Primary Care Provider [phone] Encounter Details Date Type Department Care Team (Late st Contact Info) Description 08/24/2018 Ancillary Orders Virtual Department 30 [place] [address] Darinel Amaya DO 179 [place] [address] Right lower quadrant abdominal tenderness, rebound tenderness presence not specified Social History Tobacco Use Types Packs/Day Years [...] Info) Description 05/16/2025 11:00 AM EST Nutrition [facility] [address] [place] [address] Yamilet Muñoz LDN [address] [address] [email or web address] 07/04/2025 10:20 AM EST Office Visit [facility] [address] [place] [address] [place] [address] Jacki Zacarias MD 22 [facility], [address] [place] [address] [email or web address] 07/07/2025 1:00 PM EST Appointment [facility] [address] [place] [address] Guillaume Chino, DO [address] [place] [address] [email or web address] 07/14/2025 9:30 AM EST Office Visit [facility] at [address] [address] Guillaume Chino, [address] [address] [email or web address] documented as of this encounter Visit Diagnoses Diagnosis Right lower quadrant abdominal tenderness, rebound tenderness presence not specified documented in this encounter Additional Health Concerns Infection Onset Date Last Indicated Resolved Time CoV-Risk 08/04/2021 08/04/2021 08/14/2021 1:23 AM EST CoV-Risk 04/16/2023 04/16/2023 04/27/2023 1:21 AM EST documented as of this encounter Care Teams Russian History Professor Relationship Specialty Start Date End Date Darinel Amaya DO [email or web address] PCP - General 03/24/17 12/05/24 Darinel Amaya DO 179 [place] [address] [email or web address] PCP - General Internal Medicine 12/06/24 Darinel Amaya DO 179 [place] [address] [email or web address] Insurance Assigned Provider 10/10/18 12/12/18 Guillaume Chino DO [address] [place] [address] [email or web address] Primary Oncologist Hematology and Oncology 06/13/23 documented as of this encounter Additional Source Comments The information contained in this document represents components of the legal health record. It is not the complete legal health record.[facility]
--- OUTSIDE RECORDS SUMMARY | 2025-04-05 07:50 | XMS_ITS | Encounter Summary ---
Author Organization [facility] Address [address] [facility] [address] [place] [address] Phone Care Team Providers Care Sugar Boiler Name Role Phone Darinel Amaya DO Primary Care Provider Guillaume Chino DO Unavailable [phone] Darinel Amaya DO Primary Care Provider [phone] Encounter Details Date Type Department Care Team (Late st Contact Info) Description 11/14/2021 Procedure Pass [facility]oscopy Admitting Dept Virtual Department 30 [place] [address] Social History Tobacco Use Types Packs/Day Years [...] Info) Description 05/16/2025 11:00 AM EST Nutrition [facility] 22 [place] [address] Yamilet Muñoz, KATIEN 22 [facility], 1st [place] [address] 07/04/2025 10:20 AM EST Office Visit [facility] 22 [place] [address] Jacki Zacarias MD 22 [facility], 1st [place] [address] [email or web address] 07/07/2025 1:00 PM EST Appointment [facility] [address] [place] [address] Guillaume Chino, DO [address] [place] [address] [email or web address] 07/14/2025 9:30 AM EST Office Visit [facility] at [address] [address] Guillaume Chino, DO 30 [place] [address] [email or web address] documented as of this encounter Visit Diagnoses Not on filedocumented in this encounter Additional Health Concerns Infection Onset Date Last Indicated Resolved Time CoV-Risk 04/16/2023 04/16/2023 04/27/2023 1:21 AM EST documented as of this encounter Care Teams Sugar Boiler Relationship Specialty Start Date End Date Darinel Amaya DO PCP - General 03/24/17 12/05/24 Darinel Amaya DO [address] [place] [address] [email or web address] PCP - General Internal Medicine 12/06/24 Guillaume Chino DO [address] [place] [address] [email or web address] Primary Oncologist Hematology and Oncology 06/13/23 documented as of this encounter Additional Source Comments The information contained in this document represents components of the legal health record. It is not the complete legal health record.[facility]
--- OUTSIDE RECORDS SUMMARY | 2025-04-05 07:50 | XMS_ITS | Encounter Summary ---
Author Organization [facility] Address [address] [facility] [address] [place] [address] Phone Care Team Providers Care Sugar Mill Worker Name Role Phone Darinel Amaya DO Primary Care Provider [phone] Darinel Amaya DO Unavailable Guillaume Chino DO Unavailable [phone] Bigda, Darinel Desai DO Primary Care Provider [phone] Encounter Details Date Type Department Care Team (Late st Contact Info) Description 05/28/2017 Transcribe Orders [facility] Specimen Processing [address] [place] [address] Darinel Amaya DO 179 [place] [address] [email or web address] Iron excess (Primary Dx) Social History Tobacco Use Types [...] Info) Description 05/16/2025 11:00 AM EST Nutrition [facility] [address] [place] [address] Yamilet Muñoz LDN [address] [address] [email or web address] 07/04/2025 10:20 AM EST Office Visit [facility] [address] [place] [address] [place] [address] Jacki Zacarias MD 22 [facility], [address] [place] [address] [email or web address] 07/07/2025 1:00 PM EST Appointment [facility] [address] [place] [address] Guillaume Chino, DO [address] [place] [address] [email or web address] 07/14/2025 9:30 AM EST Office [facility] 30 [place] [address] Guillaume Chino, DO [address] [place] [address] [email or web address] documented as of this encounter Results * Hemochromatosis (05/28/2017 10:49 AM EST) HFE Gene analysis SEE NOTE 7 02:51 PM [facility] DPT OF LAB MED AND PAT+ Comment: (NOTE) Test Result Flag Unit RefValue Hemochromatosis HFE Gene Analysis, B Result Summary COMPLEX (SEE RESULT AND INTERPRETATION) Result SEE NOTE C282Y: One copy of the C282Y mutation was identified. H63D: Not detected. S65C: Not detected. Interpretation SEE NOTE This result indicates that this individual is at minimum a carrier of hereditary hemochromatosis (HH). The diagnosis of HH cannot be excluded because approximately 3 to 5% of patients with HH in the [place] population carry this allele. For other ethnicities, the frequency of HH patients with this allele may differ. This assay does not rule out the presence of other disease-causing mutations in the HFE gene or in other genes associated with hemochromatosis. Genotyping results should be interpreted in the context of clinical findings, family history, and other laboratory testing (e.g. serum transferrin-iron saturation and serum ferritin). A genetic consultation may be of benefit. ADDITIONAL INFORMATION An online research opportunity called All About Baby. ([employer] a project of [employer], is available for the recipient of this genetic test. This patient registry collects de-identified genetic and health information to advance the knowledge of genetic variants. [facility] is a collaborator of [employer]. This may not be applicable for all tests. Test results should be interpreted in the context of clinical findings, family history, and other laboratory data. Misinterpretation of results may occur if the information provided is inaccurate or incomplete. Rare polymorphisms exist that could lead to false-negative or false-positive results. If results obtained do not match the clinical findings, additional testing should be considered. Bone Marrow transplants from allogenic donors will interfere with testing. Call [facility] for instructions for testing patients who have received a bone marrow transplant. Multiple in-silico evaluation tools may have been used to assist in the interpretation of these results. Of note, the sensitivity and specificity of these tools for the determination of pathogenicity is currently unvalidated. This test was developed and its performance characteristics determined by [facility] in a manner consistent with CLIA requirements. This test has not been cleared or approved by the U.S. Food and Drug Administration. Specimen WB Whole Blood Method SEE NOTE A multiplex PCR based assay utilizing the [employer] Array platform was used to test for the following three mutations in the HFE gene; C282Y, H63D, and S65C. Because of the minimal effect on iron metabolism associated with the S65C mutation, it is only reported when it is found with the C282Y mutation (i.e. if the patient has the C282Y/S65C genotype). Released By Richard Strong M.D. Blood 05/28/2017 10:4 9 AM EST 05/28/2017 10:57 AM EST us Darinel A Bigda DO LAB BLOOD ORDERABLES Final Resul t Performing Organization Address City/[facility] Co de Phone Number [facility] DPT OF LAB MED AND PAT+ [address] [place] [address] * Transferrin (05/28/2017 10:49 AM EST) TRANSFERRIN 244 200 - 360 mg/dL [facility] DPT OF LAB MED AND PAT+ Blood 05/28/2017 10:4 9 AM EST 05/28/2017 10:57 AM EST us Darinel Amaya DO LAB BLOOD ORDERABLES Final Resul t Performing Organization Address [facility] de Phone Number [facility] DPT OF LAB MED AND PAT+ [address] [place] [address] documented in this encounter Visit Diagnoses Diagnosis Iron excess- Primary Disorders of iron metabolism documented in this encounter Additional Health Concerns Infection Onset Date Last Indicated Resolved Time CoV-Risk 08/04/2021 08/04/2021 08/14/2021 1:23 AM EST CoV-Risk 04/16/2023 04/16/2023 04/27/2023 1:21 AM EST documented as of this encounter Care Teams Sugar Mill Worker Relationship Specialty Start Date End Date Darinel Amaya DO PCP - General 03/24/17 12/05/24 Darinel Amaya DO 179 [place] [address] PCP - General Internal Medicine 12/06/24 Darinel Amaya DO [address] [place] [address] [email or web address] Insurance Assigned Provider 10/10/18 12/12/18 Guillaume Chino DO 30 [place] [address] [email or web address] Primary Oncologist Hematology and Oncology 06/13/23 documented as of this encounter Additional Source Comments The information contained in this document represents components of the legal health record. It is not the complete legal health record.[facility]
--- OUTSIDE RECORDS SUMMARY | 2025-04-05 07:50 | XMS_ITS | Encounter Summary ---
Author Organization [facility] Address [address] [place] [address] Phone Care Team Providers Care Switch Maker Name Role Phone Darinel Amaya DO Primary Care Provider [phone] Guillaume Chino DO Unavailable [phone] Darinel Amaya DO Primary Care Provider [phone] Encounter Details Date Type Department Care Team (Late st Contact Info) Description 12/30/2023 Procedure Pass [facility], [facility] 30 [place] [address] Social History Tobacco Use Types Packs/Day Years [...] Info) Description 05/16/2025 11:00 AM EST Nutrition [facility] [address] [place] [address] [place] [address] Yamilet Muñoz LDN [address] [place] [address] 07/04/2025 10:20 AM EST Office Visit [facility] [address] [place] [address] [place] [address] Jacki Zacarias MD [address] [place] [address] 07/07/2025 1:00 PM EST Appointment [facility] [address] [place] [address] Guillaume Chino, DO 30 [place] [address] [email or web address] 07/14/2025 9:30 AM EST Office Visit [facility] at [address] [address] Guillaume Chino, DO [address] [place] [address] [email or web address] documented as of this encounter Visit Diagnoses Not on filedocumented in this encounter Care Teams Switch Maker Relationship Specialty Start Date End Date Darinel Amaya DO [email or web address] PCP - General 03/24/17 12/05/24 Darinel Amaya DO [address] [place] [address] [email or web address] PCP - General Internal Medicine 12/06/24 Guillaume Chino DO [address] [place] [address] [email or web address] Primary Oncologist Hematology and Oncology 06/13/23 documented as of this encounter Additional Source Comments The information contained in this document represents components of the legal health record. It is not the complete legal health record.[facility]
--- OUTSIDE RECORDS SUMMARY | 2025-04-05 07:50 | XMS_ITS | Encounter Summary ---
Author Organization [facility] Address [address] [place] [address] Phone Care Team Providers Care Scientific Glass Blower Name Role Phone Darinel Amaya DO Primary Care Provider [phone] Guillaume Chino DO Unavailable [phone] Darinel Amaya DO Primary Care Provider [phone] Encounter Details Date Type Department Care Team (Late st Contact Info) Description 05/31/2024 Procedure Pass [facility], [facility] 30 [place] [address] Social History Tobacco Use Types Packs/Day Years [...] Info) Description 05/16/2025 11:00 AM EST Nutrition [facility] [address] [place] [address] [place] [address] Yamilet Muñoz LDN [address] [place] [address] 07/04/2025 10:20 AM EST Office Visit [facility] [address] [place] [address] [place] [address] Jacki Zacarias MD [address] [place] [address] 07/07/2025 1:00 PM EST Appointment [facility] [address] [place] [address] Guillaume Chino, DO 30 [place] [address] [email or web address] .[email or web address] 07/14/2025 9:30 AM EST Office Visit [facility] at [address] [address] Guillaume Chino, DO [address] [place] [address] [email or web address] .[facility] documented as of this encounter Visit Diagnoses Not on filedocumented in this encounter Care Teams Scientific Glass Blower Relationship Specialty Start Date End Date Darinel Amaya DO [email or web address] PCP - General 03/24/17 12/05/24 Darinel Amaya DO [address] [place] [address] [email or web address] PCP - General Internal Medicine 12/06/24 Guillaume Chino DO [address] [place] [address] [email or web address] Primary Oncologist Hematology and Oncology 06/13/23 documented as of this encounter Additional Source Comments The information contained in this document represents components of the legal health record. It is not the complete legal health record.[facility]
--- OUTSIDE RECORDS SUMMARY | 2025-04-05 07:51 | XMS_ITS | Encounter Summary ---
Author Organization [facility] Address [address] [place] [address] Phone Care Team Providers Care Weaving Loom Operator Name Role Phone Darinel Amaya DO Primary Care Provider [phone] Guillaume Chino DO Unavailable [phone] Darinel Amaya DO Primary Care Provider [phone] Encounter Details Date Type Department Care Team (Late st Contact Info) Description 09/06/2022 Procedure Pass Non-Invasive Cardiology [address] [place] [address] Social History Tobacco Use Types Packs/Day Years Used Date Smoking Tobacco: Never Smokeless Tobacco: Never Alcohol Use Standard Drinks/Week Comments No 0 (1 standard drink = 0.6 oz pur e alcohol) Comments No Sex and Gender Information Value Date Recorded Sex Assigned at Female 06/16/2017 9:38 AM EST Legal Sex Female 9:57 PM EDT Gender Identity Female 06/16/2017 9:38 AM EST Sexual Orientation Straight 06/16/2017 9: 38 AM EST documented as of this encounter Plan of Treatment Upcoming Encounters Date Type Department Care Team (Late st Contact Info) Description 05/16/2025 11:00 AM EST Nutrition [facility] [address] [place] [address] Yamilet Muñoz, ROSITA [address] [facility], 1st [place] [address] 07/04/2025 10:20 AM EST Office Visit [facility] [address] [place] [address] Jacki Zacarias MD [address] [facility], 1st [place] [address] [email or web address] 07/07/2025 1:00 PM EST Appointment [facility] [address] [place] [address] Guillaume Chino, DO [address] [place] [id number] [email or web address] 07/14/2025 9:30 AM EST Office Visit [facility] at [address] [address] Guillaume Chino, DO [address] [place] [phone] [email or web address] documented as of this encounter Visit Diagnoses Not on filedocumented in this encounter Additional Health Concerns Infection Onset Date Last Indicated Resolved Time CoV-Risk 04/16/2023 04/16/2023 04/27/2023 1:21 AM EST documented as of this encounter Care Teams Weaving Loom Operator Relationship Specialty Start Date End Date Darinel Amaya DO [email or web address] PCP - General 03/24/17 12/05/24 Darinel Amaya DO [address] [place] [id number] [email or web address] PCP - General Internal Medicine 12/06/24 Guillaume Chino DO [address] [place] [address] [email or web address] Primary Oncologist Hematology and Oncology 06/13/23 documented as of this encounter Additional Source Comments The information contained in this document represents components of the legal health record. It is not the complete legal health record.[facility]
--- OUTSIDE RECORDS SUMMARY | 2025-04-05 07:51 | XMS_ITS | Encounter Summary ---
Author Organization [facility] Address [address] [place] [address] Phone Care Team Providers Care Continuous Dryout Operator Name Role Phone Guillaume Chino Unavailable [phone] Darinel Amaya DO Primary Care Provider [phone] Encounter Details Date Type Department Care Team (Late st Contact Info) Description 01/13/2025 Procedure Pass [facility] Scan - [facility] [address] [place] [address] Social History Tobacco Use Types Packs/Day Years [...] 8:20 AM JESSICAT Jian Hernandez RN * [place] Suicide Severity Rating Scale (Screener/Recent Self-Report) Question Answer Date of Assessment Author 1. Wish to be (Past 1 Month) No 01/13/2025 8:20 AM Jian Castillo RN 2. Non-Specific Active Suici kade Thoughts (Past 1 Month) No 01/13/2025 8:20 AM JESSICAT Toyb Hernandez RN 6. Suicidal Behavior (Lifetime) No 8:20 AM Jian Castillo RN documented as of this encounter Plan of Treatment Upcoming Encounters Date Type Department Care Team (Late st Contact Info) Description 05/16/2025 11:00 AM EST Nutrition [facility] [address] [place] [address] Yamilet Muñoz LDN [address] [place] [address], [address] [place] [address] 07/04/2025 10:20 AM EST Office Visit [facility] [address] [place] [address] Jacki Zacarias MD [address] [place] [address] [email or web address] 07/07/2025 1:00 PM EST Appointment [facility] [address] [place] [phone] Guillaume Chino, DO [address] [place] [id number] [email or web address] 07/14/2025 9:30 AM EST Office Visit [facility] at [address] [address] Guillaume Chino, DO [address] [place] [address] [email or web address] documented as of this encounter Visit Diagnoses Not on filedocumented in this encounter Care Teams Continuous Dryout Operator Relationship Specialty Start Date End Date Darinel Amaya DO [address] [place] [id number] [email or web address] PCP - General Internal Medicine 12/06/24 Guillaume Chino DO [address] [place] [phone] [email or web address] Primary Oncologist Hematology and Oncology 06/13/23 documented as of this encounter Additional Source Comments The information contained in this document represents components of the legal health record. It is not the complete legal health record.[facility]
--- OUTSIDE RECORDS SUMMARY | 2025-04-05 07:51 | XMS_ITS | Encounter Summary ---
Author Organization [facility] Address [address] [address] Phone Care Team Providers Care Director Emergency Services Name Role Phone Darinel Amaya DO Primary Care Provider [phone] Darinel Amaya DO Unavailable Guillaume Chino DO Unavailable [phone] Bigda, Darinel Desai DO Primary Care Provider [phone] Encounter Details Date Type Department Care Team (Late st Contact Info) Description 05/26/2017 Ancillary Orders Virtual Department [address] [place] [address] Darinel Amaya DO [address] [facility] [place] [address] [email or web address] Epigastric pain Social History Tobacco Use Types Packs/Day [...] Info) Description 05/16/2025 11:00 AM EST Nutrition [facility] [address] [place] [address] Yamilet Muñoz, ROSITA [address] [address] [email or web address] 07/04/2025 10:20 AM EST Office Visit [facility] [address] [place] [address] Jacki Zacarias MD [address] [address] [email or web address] 07/07/2025 1:00 PM EST Appointment [address] [address] Guillaume Chino, DO [address] [place] [phone] [email or web address] 07/14/2025 9:30 AM EST Office Visit [facility] at [address] [address] Guillaume Chino, DO [address] [place] [phone] [email or web address] documented as of this encounter Results * US Abdomen Complete (06/05/2017 8:13 AM EST) Anatomical Region Laterality Modality Abdomen Ultrasound 06/05/2017 8:38 AM EST Impressions 06/05/2017 8:53 AM EST No explanation for pain. Small echogenic focus intimately associated with the gallbladder wall may be due to a small amount of cholesterolosis or a gallbladder wall polyp or adherent sludge ball. Findings consistent with fatty infiltration of the liver. No other significant abnormalities. POS -[id number] Narrative 06/05/2017 8:53 AM EST HISTORY: Left upper quadrant pain, epigastric pain. COMPARISON: Abdominal ultrasound 07/15/[address] abdomen 03/20/2012 FINDINGS: Biliary: Small echogenic focus intimately associated with the gallbladder wall. This may display ringdown artifact. Gallbladder otherwise normal. No pericholecystic fluid. Proximal common duct normal measuring 4 mm in diameter. Liver: The liver is mildly hyperechoic diffusely with geographic areas of relatively more normal liver echogenicity adjacent to gallbladder. Appearance is similar to 07/15/2016. No evidence of hepatic masses. Liver margins appear smooth. Spleen: No abnormalities demonstrated. Pancreas: No abnormalities demonstrated. Kidneys: No abnormalities demonstrated. Abdominal aorta/IVC: No abnormalities demonstrated. Procedure Note Gavino Bazan MD - 06/05/2017 HISTORY: Left upper quadrant pain, epigastric pain. COMPARISON: Abdominal ultrasound 07/15/[address] abdomen 03/20/2012 FINDINGS: Biliary: Small echogenic focus intimately associated with the gallbladderwall. This may display ringdown artifact. Gallbladder otherwise normal.No pericholecystic fluid. Proximal common duct normal measuring 4 mm indiameter. Liver: The liver is mildly hyperechoic diffusely with geographic areas ofrelatively more normal liver echogenicity adjacent to gallbladder.Appearance is similar to 07/15/2016. No evidence of hepatic masses.Liver margins appear smooth. Spleen: No abnormalities demonstrated. Pancreas: No abnormalities demonstrated. Kidneys: No abnormalities demonstrated. Abdominal aorta/IVC: No abnormalities demonstrated. IMPRESSION: No explanation for pain. Small echogenic focus intimately associated withthe gallbladder wall may be due to a small amount of cholesterolosis or agallbladder wall polyp or adherent sludge ball. Findings consistent withfatty infiltration of the liver. No other significant abnormalities. POS -[id number] us Darinel A Bigda DO IMG US ABDOMEN Final Result documented in this encounter Visit Diagnoses Diagnosis Epigastric pain Abdominal pain, epigastric Epigastric pain Abdominal pain, epigastric documented in this encounter Additional Health Concerns Infection Onset Date Last Indicated Resolved Time CoV-Risk 08/04/2021 08/04/2021 08/14/2021 1:23 AM EST CoV-Risk 04/16/2023 04/16/2023 04/27/2023 1:21 AM EST documented as of this encounter Care Teams Director Emergency Services Relationship Specialty Start Date End Date SobiaDarinel berry DO PCP - General 03/24/17 12/05/24 SobiaDarinel berry DO [address] [place] [address] PCP - General Internal Medicine 12/06/24 SobiaDarinel berryDO [address] [place] [address] Insurance Assigned Provider 10/10/18 12/12/18 Guillaume Chino DO [address] [place] [id number] [email or web address] Primary Oncologist Hematology and Oncology 06/13/23 documented as of this encounter Additional Source Comments The information contained in this document represents components of the legal health record. It is not the complete legal health record.[facility]
--- OUTSIDE RECORDS SUMMARY | 2025-04-05 07:51 | XMS_ITS | Data Portability ---
Author Organization [facility] [employer] [facility], [facility] Address [address] [facility] [place] [address] Care Team Providers Care [employer] Beverage Server Name Role Phone NARINDER CUMMINS Primary Care Provider Assessment Encounter Date Assessment Date Assessment LastModified by Organization Details LastModified Time 12/07/2024 12/07/2024 Assessment and plan based on Geriatric 5 M framework (Mind, Mobility, Multicomplexity, Medications, and Matters Most) This is a 69 y/o woman with PMH sig for hyperlipidemia, DMII, MGUS, peripheral neuropathy, osteopenia, gait instability with recent fall, and cognitive impairment, seen for geriatric evaluation. Mind: Cognition: Cognitive impairment which is c/w dementia, mild, which may Alzheimer's vs atypical Alzheimer's vs Dementia with Lewy Bodies, based on history, Neuropsych assessment by Dr Dutta, MOCA exam. Symptoms include progressive memory decline over the past few years, with significant worsening in the last 3-4 months. Patient exhibits short-term memory loss, asking repetitive questions, difficulty following TV shows, and occasional visual misperceptions. MoCA score of 19/30 supports the diagnosis. Patient has a family history of dementia (grandmother). Currently on galantamine 8 mg twice daily. Pt has also been by Dr Watkins, Neurology around 2021 who did work up including labs, MRI brain. Per initial history: The patient reports her memory is not great and has been declining for some time. Her notes that her memory has been steadily worsening over the last 6-9 months, with more noticeable changes in the past 3-4 months. Specific issues include forgetting what just happened during TV shows, repeatedly asking about the date, and believing she has seen people on the street that her does not recognize. These memory problems are bothering the patient and impacting her daily functioning. Lizzy also reports balance and walking difficulties, particularly when getting up after sitting for a while. Her notes this unsteadiness began around the beginning of the year and has become more pronounced recently. The patient describes feeling like her body is not cooperating with her, stating, I just have to straighten it out. This gait instability has led to a few falls, including several in the garden and one due to icing in May. Labs: B12, MMA wnl, homocysteine sl elevated, AIC 6.8, vit D wnl, RPR non reactive () Head imaging: MRI done - no acute findings, no significant findings overall noted. Assessment: MOCA 8.1, done today, 7.1.25 VIsuospatial/execu tive: 3/5 difficulty with trails, cube Namin/3 Attention: 4/6 difficulty with serial 7 Language: 2/3 difficulty with repetition Abstraction: 2/2 Delayed recall: 0/5; MIS = 6/15 Orientation: 4/6 difficulty with month, year Score: 18+1= 1930 Review of neuropsych assessment done by Dr Dutta. Plan: Work up: - Lizzy declines further neurospsych assessment. - Consider going to a tertiary center for a neurology work up to see if gait disorder is related to cognitive impairment ( a parkinson like condition such as DLB or an alpha synuclein Alzheim'ers) - Would recommend Dr Chaudhari, [facility] Neurology Treatment: We spoke about possible treatments - she adamantly declines antibody infusions such as leqanamab Continue galantamine Activity: - Recommend limiting TV watching to 2 hours in the morning and evening - Encourage increased physical activity, particularly walking, as tolerated - Consider referral to [facility] for walking assistance There are some things that we know can help with overall cognition: Important to be an active listener - repeat back, write things down. Our ability to multi- task gets worse as we get older Try to just do one thing at a time Physical activity is the best thing - 30 minutes 4-5 times a week but start off slow and build up Mental activity - learning a new skill Social activity Meditation and/or Lon Chi can help Diagnosis reviewed? Yes Mood: Anxiety/Depression with irritability Assessment: Patient endorses feeling down or depressed for a while. No current pharmacological management. Notes increasing anxiety/irritabili ty Plan: - Monitor mood symptoms - Consider starting sertraline 25 mg and adjust dose as needed. - Reassess need for intervention at follow-up visit Mobility: Gait Instability and Falls Assessment: Patient reports unsteady gait, particularly when rising from a seated position, onset within the past year and worsening in recent months. Multiple falls reported, including a recent fall yesterday resulting in right arm injury. MRI showed no intracranial bleeding. Gait instability in context of dementia raises concern for possible Lewy body dementia, though patient denies sleep disorders or restless legs. Plan: - Refer for physical therapy evaluation and treatment - Recommend eye examination - Review previous brain MRI results (ordered by Dr. Lynch during COVID) Medications: would ensure that oversees Lizzy's medications Matters most: adapting to future/current issues ACP: involve PCP, in care Health care proxy: yes Molst: didnt discuss I personally spent 150 minutes preparing for, caring for the patient (F2F and non-F2F), and finalizing the visit for this patient, which included discussion with patient and/or family about diagnosis, prognosis, recommendations, risk/benefits, risk reduction and education of above. Thank you for this interesting consult. Will f/u in 2 months for cognitive care plan. Not available 12/07/2024 20:32:21 02/08/2025 02/08/2025 Assessment and plan based on Geriatric 5 M framework (Mind, Mobility, Multicomplexity, Medications, and Matters Most) This is a 69 y/o woman with PMH sig for hyperlipidemia, DMII, MGUS, peripheral neuropathy, osteopenia, gait instability with recent fall, and cognitive impairment, seen for geriatric evaluation f/u. Cognitive Care Plan Elements: 1. Cognition: Cognitive impairment which is c/w dementia, mild, which may Alzheimer's vs atypical Alzheimer's vs Dementia with Lewy Bodies, based on history, Neuropsych assessment by Dr Dutta, MOCA exam. Symptoms include progressive memory decline over the past few years, with significant worsening in the last 3-4 months. Patient exhibits short-term memory loss, asking repetitive questions, difficulty following TV shows, and occasional visual misperceptions. MoCA score of 19/30 supports the diagnosis. Patient has a family history of dementia (grandmother). Currently on galantamine 8 mg twice daily. Pt has also been by Dr Watkins, Neurology around 2021 who did work up including labs, MRI brain. Per initial history: The patient reports her memory is not great and has been declining for some time. Her notes that her memory has been steadily worsening over the last 6-9 months, with more noticeable changes in the past 3-4 months. Specific issues include forgetting what just happened during TV shows, repeatedly asking about the date, and believing she has seen people on the street that her does not recognize. These memory problems are bothering the patient and impacting her daily functioning. Lizzy also reports balance and walking difficulties, particularly when getting up after sitting for a while. Her notes this unsteadiness began around the beginning of the year and has become more pronounced recently. The patient describes feeling like her body is not cooperating with her, stating, I just have to straighten it out. This gait instability has led to a few falls, including several in the garden and one due to icing in May. Labs: B12, MMA wnl, homocysteine sl elevated, AIC 6.8, vit D wnl, RPR non reactive () Head imaging: MRI done - no acute findings, no significant findings overall noted. Assessment: MOCA 8.1, done 7 VIsuospatial/execu tive: 3/5 difficulty with trails, cube Namin/3 Attention: 4/6 difficulty with serial 7 Language: 2/3 difficulty with repetition Abstraction: 2/2 Delayed recall: 0/5; MIS = 6/15 Orientation: 4/6 difficulty with month, year Score: 18+1= 19/30 Review of neuropsych assessment done 05.08.[address] Dutta - MMSE 26/30 , MOST - he noted impairment in immediate and delayed memory. He felt she has mild dementia, likely Alzheimer's type. He recommended f/u in a year as well as checking for sleep apnea, starting galantamine and treating homocysteine if elevated. Since last visit, Lizzy reports worsening short-term memory and mobility issues, including unsteady gait and difficulty using stairs. She expresses frustration with her cognitive decline. There are signs of apathy and increased irritability, which are new symptoms. The patient's caregiver notes that she has become more argumentative and resistant to care, forgetting important tasks like bills and appointments. Despite being on galantamine, the disease appears to have progressed. Plan: Work up: - Lizzy declines further neurospsych assessment. - We talked about going to a tertiary center for a neurology work up to see if gait disorder is related to cognitive impairment ( a parkinson like condition such as DLB or an alpha synuclein Alzheim'ers) - Would recommend Dr Chaudhari, [facility] Neurology - but she adamantly does not want to go - what can be done? - Would encourage sleep study if not already done but I cannot imaging her agreeing to this. Treatment: We spoke about possible treatments - she adamantly declines antibody infusions such as lecanamab Continue galantamine - but note she wants to stop. Activity: - Recommend limiting TV watching to 2 hours in the morning and evening - Encourage increased physical activity, particularly walking, as tolerated Diagnosis reviewed? Yes 2. Function: a. Mcca[place]y ADL: 6 b. Mattie-Micheal IADL: 6 - gets help with shopping and food prep Plan: Jimenez helps with things like finances and appts. We reviewed that there will come a time for driving alf, sooner rather than later. Lizzy has no insight into this - would have drive with her monthly to ensure her safety and will discuss further at next visit. 3. Stage of cognitive impairment: Dementia Severity Rating Scale (DSRS) : Mild - 9 - difficulty with memory, orientation and decision making ability Plan Continue to think about planning for the future based on stages and care recommendations 4. Decision-makin level rating scale global clinician judgement: able to at this time though limited by insight and memory (Able to make own decisions, not able to , uncertain/needs more evaluation) Plan: Ensure is with Lizzy at medical appts. 5. Neuropsychiatric symptoms: Apathy / Anxiety/Depression with irritability Assessment tool: NPI-Q (12 items) Severity: 1 / Distress to caregiver: 1 At initial visit, Lizzy endorses feeling down or depressed for a while. No current pharmacological management. Notes increasing anxiety/irritabili ty Plan: - Monitor mood symptoms - We again spoke about increasing sertraline 25 mg and adjust dose as needed. - Reassess need for intervention at follow-up visit 6. Medication review and reconciliation: Medications reviewed and reconciled: Yes PIMs (Potentially Inappropriate Medications) identified: Insulin Administration: Pill box: Medications: would ensure that oversees Lizzy's medications Would ensure Jimenez oversees insulin. 7. Safety: Safety Assessment Guide: a. Is the patient still driving? yes b. Is the patient taking medications as prescribed? yes c. Are there concerns about safety in the home? no d. Has the patient gotten lost in familiar places or wandered? no e. Are firearms present in the home? no f. Has the patient experienced unsteadiness or sustained falls? yes g. Does the patient live alone? no Plan: Mobility: Gait Instability and Falls Assessment: Patient reports unsteady gait, particularly when rising from a seated position, onset within the past year and worsening in recent months. Multiple falls reported, including a recent fall in November resulting in right arm injury. MRI showed no intracranial bleeding. Gait instability in context of dementia raises concern for possible Lewy body dementia, though patient denies sleep disorders or restless legs. Plan: Lizzy doesnt want to go to , and doesnt want to go to [place] for further evaluation. She is resistant to doing any walking even with the dog and I can appreciate doesnt want to get into arguments with her. As above, will need to prepare for driving alf in the near future 8. Caregiver identification and needs assessment: gets support from [facility] Assessment tool: Stress thermometer: moderate ; GIBSONT-12: 14 - feels like he could be doing more. Plan: Reviewed how difficult this is and note that Jimenez is doing a great job supporting them both. Continue support from [employer], provided support, will see if our dementia specialist will reach out to . - Provide information on local resources for caregivers (e.g., [facility]) - Encourage caregiver self-care, including exercise and stress management 9. Advance care planning: Checklist reviewed Plan (Preferences and legal needs): HCP: yes MOLST: not needed POA: would work to get financial planning in place - this should be a priority Is there an emergency plan in case the caregiver is unable to provide care?: talked about getting an emergency plan in place. - Likey their son who lives in town and his sisters. Patient and caregiver resources discussed and/or handed out More than 50% of this 70 minute visit was spent face to face with the patient and/or family caregiver, providing counseling, decision making, and coordination of care. Written plan discussed with and given to the patient and/or family caregiver. Written plan shared with PCP Thank you for this interesting consult. Will f/u in 6 months for cognitive care plan. Summary: - Continue galantamine - Consider initiating sertraline 25 mg for irritability and anxiety - Recommend monthly driving assessment with a family member - Encourage participation in new caregiver support group for mild dementia - Follow up in 6 months or as needed - Communicate assessment and plan to Dr. Cummins Not available 02/08/2025 11:09:26 Plan of Treatment Reminders Order Date Submit Date Provider Last Modified By Organization Details Last Modified Time Details Appointments None record ed. Lab None record ed. Referral None record ed. Procedures None record ed. Surgeries None record ed. Imaging None record ed. Medication Orders None record ed. Patient TargetsNo targets recorded. Patient InstructionsNo instructions recorded. Reason for Referral None Reported. Results Created Date Observation Date Name Description Value Unit Range Abnormal Flag Note LastModifiedBy Organization Detail LastModifiedTime 01/15/20 25 07/06/2023 MRI, brain , w/o contr ast No observ ation record ed. [email or web address] [facility] - Outpatient Imaging Central Scheduling (Not Breast) [address] [place], [address], 01/17/2025 17:23:05 Result Notes None recorded. Problems Name Problem SNOMED Code Status Onset Date Resolution Date Notes Provider Name and Address Organization Details Recorded Time Type 2 diabetes mellitus 83244581 Active 2017 [employer] 5 10:02:03 Hyperlipide simi 49642620 Active 2017 [employer] 5 10:02:04 Vitamin D deficiency 88287395 Active 2017 [employer] 5 10:02:03 Irritable bowel syndrome 04648642 Active 2018 Vanda [employer] 5 10:02:03 Poor short-term memory 404456697 Active 2021 [employer] 5 10:02:03 Right upper quadrant pain 812259883 Active 2021 Vanda Onushco null, [employer] [facility] 5 10:02:03 Intermitten t palpitation s 032194316 Active 2022 Vanda Onushco null, [employer] [facility] 5 10:02:03 Pain of bilateral hip joints 4749288990960 9100 Active 2022 Vanda Onushco null, [employer] [facility] 5 10:02:03 Neuropathy due to diabetes mellitus 445767334 Active 2022 Vanda Onushco null, [employer] [facility] 5 10:02:03 Postmenopau duncan osteopenia 718725909 Active 2022 Vanda Onushco null, [employer] [facility] 5 10:02:04 Mass of subcutaneou s tissue of back 9324141338420 03 Active 2022 Vanda Onushco null, [employer] [facility] 5 10:02:03 Impingement syndrome of left shoulder region 5452302030810 04 Active 2023 Vanda Onushco null, [employer] [facility] 5 10:02:03 Pain of left breast 1537131509 Active 2023 Vanda Onushco null, [employer] [facility] 5 10:02:03 Mammographi c microcalcif ication of left breast 1220011602029 9108 Active 2023 Vanda Onushco null, [employer] [facility] 5 10:02:03 Mass of right breast 8531144528354 9106 Active 2023 Vanda Onushco null, [employer] [facility] 5 10:02:03 Mammographi c mass of right breast 7284664477561 9103 Active 2023 Vanda Onushco null, [employer] [facility] 5 10:02:03 Monoclonal gammopathy (clinical) 729160931 Active 2024 Vanda Onushco null, [place] [facility] [employer] 5 10:02:03 Alzheimer's disease 04514416 Active 2024 Vanda Onushco null, [place] [facility] [employer] 5 10:02:03 Strain of triceps brachii muscle 713479840 Active 2024 Vanda Onushco null, [place] [facility] [employer] 5 10:02:03 Dementia 13233755 Active 2024 Tana [facility] [address], [place], [address], [employer] [place] [facility] [employer] 19:28:05 Monoclonal gammopathy of uncertain significanc e 535236123 Active 2024 Tana [facility] [address], [place], [address], [employer] [place] [facility] [employer] 5 19:28:32 Pain of hip region 29996675 Active 2024 Tana [facility] [address], [place], [address], [employer] [place] [facility] [employer] 5 19:28:55 Neuropathy 958660452 Active 2024 Tana [facility] [address], [place], [address], [employer] [place] [facility] [employer] 5 19:29:08 Osteopenia 175245255 Active 2024 Tana [facility] [address], [place], [address], [employer] [place] [facility] [employer] 5 19:29:44 Anxiety 41030668 Active 2024 Tana [facility] [address], [place], [address], [employer] [place] [facility] [employer] 5 11:09:46 Abnormal gait 73939197 Active 2024 Tana [facility] [address] [facility] [address], [address], [employer] 5 11:09:47 Problem Notes None recorded. Medical Equipment None Reported. Allergies Allergen ID Allergen Name Allergen Category Reaction Reaction Severity Criticality Documentation Date Start Date Code Code System Note Provider Name and Address Organization Details Recorded Time 1331 doxycycli ne Not available Not available Not available [facility] 12/07/2024 3640 RxNorm Toby Devineland jeffy [employer] 5 08:45:42 1332 Substance with sulfonami de structure and antibacte rial mechanism of action (substanc e) medicatio n Not available Not available [facility] 12/07/2024 41547 8003 SNOMED Toby Devineland jeffy [employer] 5 08:46:47 Medications Name Sig Start Date Stop Date Status Note LastModified by Organization Details LastModified Time atorvastat in 10 mg tablet TAKE 1 TABLET BY MOUTH DAILY 05/22 completed Not Available Not Available Not Available nystatin 100,000 unit/gram topical ointment APPLY TOPICALLY TO THE AFFECTED AREA TWICE DAILY NEEDED 09/04 completed Not Available Not Available Not Available epinephrin e (Jr) 0.15 mg/0.3 mL injection, auto-injec tor Take 1 auto as needed by injection route. 12/07 completed Not Available Not Available Not Available Zyrtec 10 mg tablet Take 1 tablet every day by oral route. active Not Available Not Available No t Available triamcinol one acetonide 0.1 % topical cream APPLY THIN LAYER TOPICALLY TO THE AFFECTED AREA TWICE DAILY 12/07 completed Not Available Not Available Not Available triamcinol one acetonide 0.025 % topical cream APPLY THIN LAYER EXTERNALL Y TO THE AFFECTED AREA TWICE DAILY 04/06 completed Not Available Not Available Not Available OneTouch Ultra Test strips USE TO TEST BLOOD SUGAR EVERY MORNING active Not Available Not Available No t Available cephalexin 500 mg capsule TAKE 1 CAPSULE BY MOUTH THREE TIMES DAILY FOR 10 DAYS 12/07 completed Not Available Not Available Not Available Cipro 500 mg tablet Take 1 tablet every 12 hours by oral route for 10 days. 04/28 completed Not Available Not Available Not Available triamcinol one acetonide 0.1 % topical ointment APPLY TOPICALLY TO THE AFFECTED AREA TWICE DAILY FOR 14 DAYS active Not Available Not Available No t Available fluoxetine 10 mg capsule Take 1 capsule every day by oral route for 30 days. 04/28 completed Not Available Not Available Not Available epinephrin e 0.3 mg/0.3 mL injection, auto-injec tor INJECT 1 PEN IN THE MUSCLE ONE TIME DIRECTED active Not Available Not Available No t Available fluocinoni de 0.05 % topical cream APPLY TOPICALLY TO THE AFFECTED AREA TWICE DAILY FOR 2 WEEKS DIRECTED active Not Available Not Available No t Available modafinil 100 mg tablet TAKE 1 TABLET BY MOUTH EVERY DAY IN THE MORNING 11/20 completed Not Available Not Available Not Available cholestyra mine (with sugar) 4 gram oral powder DISSOLVE AND TAKE 1 SCOOP BY MOUTH EVERY DAY 01/24 completed Not Available Not Available Not Available rosuvastat in 10 mg tablet 02/17 completed Not Available Not Available Not Available galantamin e ER 8 mg 24 hr capsule,ex tended release TAKE 1 CAPSULE BY MOUTH EVERY DAY 02/08 completed 8mg twice per day Not Available Not Available Not Available galantamin e ER 16 mg 24 hr capsule,ex tended release TAKE 1 CAPSULE BY MOUTH EVERY DAY active Not Available Not Available No t Available cholecalci ferol (vitamin D3) 1,250 mcg (50,000 unit) capsule Take 1 capsule every week by oral route. 08/24 completed Not Available Not Available Not Available Shirley Montoya U-100 Insulin 100 unit/mL (3 mL) subcutaneo us ADMINISTE R 32 UNITS UNDER THE SKIN DAILY active Not Available Not Available No t Available OneTouch Ultra Blue Test Strip Take 1 strip every day by miscell. route in the morning for 40 days. active Not Available Not Available No t Available [employer] COVID-19 Ag Self Test kit TEST DIRECTED TODAY 05/22 completed Not Available Not Available Not Available Jenny 2nd Gen Pen Needle 32 gauge x 5/32 USE 1 PEN TO INJECT MEDICATIO N UNDER THE SKIN ONCE DAILY active Not Available Not Available No t Available Vitals Date Recorded Body weight Oxygen saturation Oxygen saturation in Arterial blood by Pulse oximetry Heart rate Systolic And Diastolic Provider Name and Address Organization Details Last Updated DateTime 5 85393.4 4 g 95 % 95 % 76 /min 150/86 mm[Hg] Vanda [employer]ale [facility] 5 09:51:34 Date Recorded Body weight Heart rate Oxygen saturation Oxygen saturation in Arterial blood by Pulse oximetry Systolic And Diastolic Provider Name and Address Organization Details Last Updated DateTime 5 92623.4 4 g 74 /min 96 % 96 % 138/80 mm[Hg] Vanda CarWale [facility] 5 10:07:42 Social History None recorded. Functional Status None recorded. Mental Status None recorded. Family History Nothing Reported. Medical History No medical history recorded. Gynecological HistoryNo gynecological history recorded. Obstetrics History GPAL:G 0 P 0 0 0 0 Immunizations Vaccine Type Date Status Note Provider Nam e and Address Organization Details Recorded Time COVID-19, mRNA, LNP-S, PF, 30 mcg/0.3 mL dose, jay jay-sucrose 08/28/2020 completed Vanda [email or web address] [place] [facility] 02/08/2025 10:02:10 COVID-19, mRNA, LNP-S, PF, 30 mcg/0.3 mL dose, jay jay-sucrose 09/18/2020 completed Vanda [place] [facility] [place] [facility] 02/08/2025 10:02:10 COVID-19, mRNA, LNP-S, PF, 30 mcg/0.3 mL dose, jay jay-sucrose 09/19/2021 completed Vanda [email or web address] [place] [facility] [place] [facility] 02/08/2025 10:02:10 COVID-19, mRNA, LNP-S, PF, 30 mcg/0.3 mL dose, jay jay-sucrose 03/20/2022 completed [email or web address] [place] [facility] [place] [facility] 02/08/2025 10:02:10 COVID-19, mRNA, LNP-S, PF, 30 mcg/0.3 mL dose, jay jay-sucrose 04/18/2021 completed [email or web address] [place] [employer] [facility] 02/08/2025 10:02:10 Tdap 01/30/2022 completed Vanda bardales [place] [facility] 02/08/2025 10:02:10 Past Encounters Encounter ID Performer Location Encounter Start Date Encounter Closed Date Diagnosis/Indication Diagnosis SNOMED-CT Code Diagnosis ICD10 Code Diagnosis IMO Codes Diagnosis Note [id number] MD [facility] [address] [facility] [address] [place] [address] 12/07/2024 09:19:09 12/07/2024 11:00:12 Alzheimer's disease 91324396 G30.9 as above Abnormal gait 76331237 R 26.81 959409 Gait Instabilit y and FallsAsses sment: Patient reports unsteady gait, particular ly when rising from a seated position, onset within the past year and worsening in recent months. (per pt/ but review of chart shows that this has been going on longer) . Noted to have some peripheral neuropathy Multiple falls reported, including a recent fall yesterday (she tripped over a garden fence) resulting in right arm injury.- Gait instabilit y in context of dementia and visual mispercept ion raises concern for possible Lewy body dementia, though patient denies sleep disorders or restless legs.Plan: - Refer for physical therapy evaluation and treatment- Recommend eye examinatio n- As above, consider w/u at tertiary center Anxiety 25573380 F41.9 76900 as aboveconsi aida starting sertraline 25 mg daily Caregiver role strain 12 6347248 Z63.6 4410384 Appreciate how difficult this has been for both Lizzy and her .Facundo davis and I spoke at length -Gave informatio n on Dementia Road Map, legal planningHe will contact Teodora have our dementia specialist call himReviewe d that Lizzy cannot change but he can - so important for ex not to tell her she is wrong. Would watch Berkley De La Fuente's short videos on brain changes. This is a link to one - [email or web address]? [email or web address] kTQ - to start.Her website is [place] for further informatio n. [id number] MD [facility] [address] [facility] [address] [place] [address] 02/08/2025 09:53:51 02/08/2025 10:52:28 Alzheimer's disease 81162229 G30.9 as above Abnormal gait 46909054 R 26.81 191881 Gait Instabilit y and FallsAs above Anxiety 67172777 F41.9 26325 as aboveconsi aida starting sertraline 25 mg daily Caregiver role strain 12 3379812 Z63.6 4624759 Appreciate how difficult this has been for both Lizzy and her .Facundo davis and I spoke at length -Gave informatio n on Dementia Road Map, legal planning at initial visitHe will contact Sasha have our dementia specialist call himReviewe d that Lizzy cannot change but he can - so important for ex not to tell her she is wrong. Would watch Berkley De La Fuente's short videos on brain changes. This is a link to one - [email or web address] [email or web address].[email or web address]. com/watch? [email or web address] kTQ - to start.Her website is [employer] for further informatio n. Health Concerns Section Related Observation LastModified by Organization Detai ls LastModified Time None Recorded Concern Status LastModified by Organization Details LastModified Time None Recorded Advance Directives Directive None Recorded Payers Insurance Date Sequence Insurance Name Policy Number Policy Whitfield Covered Member ID Whitfield Member ID Guarantor Name 02/07/2025 2 [place] [id number] Lizzy Stacy [id number] Lizzy Valdiviajosias 02/07/2025 1 [place] Lizzy Stacy [id number] Lizzy Stacy Notes Date Note Type Note Provider Name and Address Organization Details Recorded Time 5 text/html ROS as noted in the HPI PCP: Dr Cummins Referred by: PCP Person to contact for follow up visits: Jimenez Stacy [phone] Goals for visit: How to deal with memory loss (early onset Alz) Problems or specific concerns for this visit: see above PHQ9:*GAD7: * Patient history: Lizzy Chief ComplaintMemory problems ( not great ), balance and walking issues, fall yesterday with right arm pain, depressed mood History of Present IllnessShkarthik Stacy presents with concerns about memory decline, balance issues, and a recent fall. The patient reports her memory is not great and has been declining for some time. Her notes that her memory has been steadily worsening over the last 6-9 months, with more noticeable changes in the past 3-4 months. Specific issues include forgetting what just happened during TV shows, repeatedly asking about the date, and believing she has seen people on the street that her does not recognize. These memory problems are bothering the patient and impacting her daily functioning. Lizzy also reports balance and walking difficulties, particularly when getting up after sitting for a while. Her notes this unsteadiness began around the beginning of the year and has become more pronounced recently. The patient describes feeling like her body is not cooperating with her, stating, I just have to straighten it out. This gait instability has led to a few falls, including several in the garden and one due to icing in May. Yesterday, Lizzy experienced a fall while getting out of a short enclosure. She tripped on a wire, landing on her right side and hitting her head on the ground. She was taken to the hospital where a CT head showed no bleeding, and there were no fractures. However, she reports being unable to use her right arm currently due to pain. The patient's mood has been affected, with Lizzy reporting feeling down or depressed for a while. Her notes she has become more emotional recently, which is a change from her previously even-keeled demeanor. Lizzy has stopped driving independently, citing an incident [place] [address] [place] from [place]. While she believes she can still drive, her notes this change occurred on her own initiative. Regarding treatment adherence, Lizzy takes galantamine 8 mg twice daily for her dementia, as well as insulin for diabetes and Zyrtec.The patient continues to struggle with some daily activities, such as cooking, often forgetting about food left on the stove or in the toaster. Medical History includes:- Mild dementia, early-onset Alzheimer's diagnosed by Dr. Dutta- Diabetes, requiring insulin- Fall yesterday with head impact and right shoulder injury, evaluated at hospital Medications and Supplements- Galantamine 8 mg by mouth twice daily- For memory issues- Patient was forgetting if she took it, so got her a pill case- Getting better with adherence using the pill case- Insulin- For diabetes- Patient knows how much to take- Geoff Family History- Grandmother: Placed in a mcc in her 70s when Alzheimer's was first being discussed Family/caregiver history: Jimenez Recent ED visits/hospitalizations: Yesterday after a fall, no fracture but hurt right arm. Function:ADL: (bathing, dressing, toileting, transferring, continence, feeding)All independentIADL: ( Telephone, shopping, food preparation, housekeeping, laundry, Transportation, Medications, Finances)Needs total assistance: driving, paying bills, shopping Supports:Help at home: No - does General information about you: Mobility:Assistive device: NoAny falls? Yes - May 2024 - and last night,, went to ED, hurt shoulder.Are you afraid of falling? * yes - a little bit Sleep:How would you describe your sleep? (options: good, fair, poor) fairDo you snore? (options: yes, no, don't know) don't knowHave you ever been tested for sleep apnea? (yes, no, don't know) no Driving?: does not driveAny concerns? didnt quite trust herself, prefers not to. Nutrition:Appetite: goodHas food intake declined over the past 3 months? noWeight loss/gain: noWould you like assistance with meals? no Finances: Any concerns? no Health Maintenance:Overall health: goodDepression//sadness: noAnxiety: yesMemory loss: yesAre you or others concerned about your memory?: yesFeels safe at home: yesHearing Test: noEye exam: no -Dentist: yes - cancelled last eye exam.Have you decreased the amt of time you spend with family/friends in the past year?: no Physical fitness: yes, until it got too far. Frailty Screening:Fatigue: takes nap in afternoonResistance (able to climb a flight of stairs): yesAerobic (able to walk a block): yesPresence of > 5 illnesses(HTN, DM, CA, chronic respiratorydisease, [place], CVA, arthritis (or RA), CKD, or liver disease): yesWeight loss > 5% in the past 6 months: noScore: 1 (Robust: 0, Pre-frail: 1-2, Frail: >=3) Social History:Born/raised: Born [place], raised [place], 5 siblingsChildhood: hard childhood, alcoholismEducational level: HS, then worked at office jobs.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 yesETOH: neverConcern about amount of ETOH? n/aTobacco: neverOther drugs: left blank Spends her time - watches a lot of TV, used to be more active. FH:Parents were both in their 70's, both from cancerGrandmother may have had Alzheimer's Tana Chapman MD [address] [place] [address], [place], [address], [employer] 12/07/2024 20:32:33 5 text/html ROS as noted in the HPI Subjective:Since last visit: date: NPV 12.07.24Here with Jimenez. Had shoulder injury but no fractures. went to [facility] Notices her short term memory is worse. It makes her sad - but she doesnt get sad every day.Wonders about her physical aspect. Denies feeling down or depressed, denies being anxious. Likes to sit and watch TV, muhammad her plants in the garden. Not doing much exercise. Jimenez notes that mobility is more of an issue, more unsteadiness - but he thinks it may be due to deconditioning. He thought the dog would get her more exercise but it doesn't. Falls/change in gait: NoED visits/hospitalizations: Yes, 01.13.25 - had some abdominal pain but it turned out to be nothing. She was worried it was her gall bladder.Changes in function: NoChanges in medication: No - but wants to stop the galanatamine as it can affect her heart.Was diagnosis from initial visit discussed?: Yes Chief ComplaintWorsening memory, especially short-term, unsteady walking, irritability History of Present IllnessLizzy Stacy, a patient with a history of Alzheimer's disease and diabetes, presents for follow-up with concerns of worsening memory and mobility issues. She reports her memory has deteriorated, especially short-term memory, which causes her frustration. The patient describes physical aspects of her condition, including unsteady walking and changes in vision, particularly depth perception. She mentions that using stairs has become risky due to her instability. Lizzy also notes experiencing some apathy, stating she doesn't care as much about things as she used to. Since the last visit, Lizzy had an episode of abdominal pain that led to an emergency department visit, but it turned out to be nothing. She reports experiencing unusual heart sensations while taking galantamine, describing it as my heart's doing different things. However, she states that she has been on galantamine all this time, except for reducing the dose in the past two days. Lizzy expresses skepticism about the medication's efficacy, noting that her condition has progressed despite taking it. Jimenez reports that Lizzy has become more argumentative recently and tends to forget important things like bills or appointments. Jimenez also notes that Lizzy's dementia has made her more resistant to care and suggestions. Lizzy's driving habits have changed. While she previously drove independently, she now primarily drives on familiar roads and with her granddaughter. Her does most of the driving when they are together. Jimenez notes that Lizzy has significant anxiety about traveling, particularly flying, which has prevented her from taking trips for a long time. The patient denies feeling anxious or depressed and reports no falls since the last visit. She declined the suggestion of seeking a more comprehensive workup at a larger medical center in [place], stating, whatever is happening in my brain is happening, it's going to happen. Medications and Supplements- Galantamine- Patient reports feeling like her heart was doing different things while sitting in a chair.- Patient stopped taking it yesterday and today.- Patient feels it's not effective as her condition has progressed despite taking it. Tana Chapman MD [address] [place] [address], [place], [address], [facility] [employer] [facility] 02/08/2025 11:10:20 OBGyn Episode No OBEpisode recorded.
--- OUTSIDE RECORDS SUMMARY | 2025-04-05 07:51 | XMS_ITS | Encounter Summary ---
Author Organization [facility] Address [address] [facility] [address] [place] [address] Phone Care Team Providers Care Stonecutter Assistant Name Role Phone Darinel Amaya DO Primary Care Provider [phone] Guillaume Chino DO Unavailable Darinel Amaya DO Primary Care Provider [phone] Encounter Details Date Type Department Care Team ([facility] st Contact Info) Description 01/24/2023 Transcribe Orders Virtual Department [address] [place] [address] Darinel Amaya DO [address] [facility] [place] [address] [place] [address] [email or web address] Osteopenia, unspecified location Social History Tobacco Use Types Packs/Day Years [...] with a working camera? Not on file Comments No Sex and Gender Information Value Date Recorded Sex Assigned at Female 06/16/2017 9:38 AM EST Legal Sex Female 9:57 PM EDT Gender Identity Female 06/16/2017 9:38 AM EST Sexual Orientation Straight 06/16/2017 9: 38 AM EST documented as of this encounter Plan of Treatment Upcoming Encounters Date Type Department Care Team (Late st Contact Info) Description 05/16/2025 11:00 AM EST Nutrition [facility] [address] [place] [address] [place] [address] Yamilet Muñoz LDN [address] [address] [email or web address] 07/04/2025 10:20 AM EST Office Visit [facility] [address] [place] [address] [place] [address] Jacki Zacarias MD [address] [place] [address] 07/07/2025 1:00 PM EST Appointment [facility] [address] [place] [address] Guillaume Chino, DO [address] [place] [address] [email or web address] 07/14/2025 9:30 AM EST Office Visit [facility] at [address] [address] Guillaume Chino, DO [address] [place] [address] [email or web address] documented as of this encounter Visit Diagnoses Diagnosis Osteopenia, unspecified location documented in this encounter Additional Health Concerns Infection Onset Date Last Indicated Resolved Time CoV-Risk 04/16/2023 04/16/2023 04/27/2023 1:21 AM EST documented as of this encounter Care Teams Stonecutter Assistant Relationship Specialty Start Date End Date Darniel Amaya DO [email or web address] PCP - General 03/24/17 12/05/24 Darinel Amaya DO [address] [place] [address] [email or web address] PCP - General Internal Medicine 12/06/24 Guillaume Chino DO [address] [place] [address] [email or web address] Primary Oncologist Hematology and Oncology 06/13/23 documented as of this encounter Additional Source Comments The information contained in this document represents components of the legal health record. It is not the complete legal health record.[facility]
--- OUTSIDE RECORDS SUMMARY | 2025-04-05 07:51 | XMS_ITS | Encounter Summary ---
Author Organization [facility] Address [address] [place] [address] Phone Care Team Providers Care Grey Roll Worker Name Role Phone Darinel Amaya DO Primary Care Provider [phone] Guillaume Chino DO Unavailable [phone] Darinel Amaya DO Primary Care Provider [phone] Encounter Details Date Type Department Care Team (Late st Contact Info) Description 09/06/2022 Transcribe Orders Virtual Department [address] [place] [address] Darinel Amaya DO [address] [employer] [place] [address] [email or web address] Palpitations Social History Tobacco Use Types Packs/Day Years [...] EST Nutrition [facility] [address] [place] [address] Yamilet Muñoz LDN [address] [address] 07/04/2025 10:20 AM EST Office Visit [facility] [address] [place] [address] Jacki Zacarias MD [address] [address] [email or web address] 07/07/2025 1:00 PM EST Appointment [facility] [address] [place] [address] Guillaume Chino, [address] [address] [email or web address] 07/14/2025 9:30 AM EST Office Visit [facility] at [facility] [address] [place] [address] Guillaume Chino, DO [address] [place] [phone] [email or web address] documented as of this encounter Results * MCT (Mobile Cardiac Telemetry) (09/29/2022 9:01 AM EDT) Anatomical Region Laterality Modality Heart Other Narrative 10/02/2022 8:45 AM EDT The predominant rhythm was normal sinus rhythm. There was no evidence of atrial fibrillation flutter or ventricular tachycardia there were no pauses. There were very rare PACs and PVCs Event Monitor Main Form The type of event monitor used is: continuous telemetry. Start date: 09/17/2022 End date: 09/24/2022 us Darinel A Bigda DO CV CARDIAC SERVICES ORDERABLES F inal Result documented in this encounter Visit Diagnoses Diagnosis Palpitations Palpitations documented in this encounter Additional Health Concerns Infection Onset Date Last Indicated Resolved Time CoV-Risk 04/16/2023 04/16/2023 04/27/2023 1:21 AM EST documented as of this encounter Care Teams Grey Roll Worker Relationship Specialty Start Date End Date Darinel Amaya DO [email or web address] PCP - General 03/24/17 12/05/24 Darinel Amaya DO [address] [place] [address] [email or web address] PCP - General Internal Medicine 12/06/24 Guillaume Chino DO [address] [place] [phone] [email or web address] Primary Oncologist Hematology and Oncology 06/13/23 documented as of this encounter Additional Source Comments The information contained in this document represents components of the legal health record. It is not the complete legal health record.[facility]
--- OUTSIDE RECORDS SUMMARY | 2025-04-05 07:51 | XMS_ITS | Encounter Summary ---
Author Organization [facility] Address [address] [facility] [address] [place] [address] Phone Care Team Providers Care Painter Helper Name Role Phone Darinel Amaya DO Primary Care Provider [phone] Guillaume Chino DO Unavailable [phone] Darinel Amaya DO Primary Care Provider [phone] Encounter Details Date Type Department Care Team (Late st Contact Info) Description 01/24/2023 Ancillary Orders Virtual Department [address] [place] [address] Darinel Amaya DO [address] [facility] [address] [place] [address] [email or web address] Osteopenia, unspecified location; Other specified disorders of [...] Info) Description 05/16/2025 11:00 AM EST Nutrition [facility] [address] [place] [address] Yamilet Muñoz LDN [address] [place] [address] 07/04/2025 10:20 AM EST Office Visit [facility] [address] [address] Jacki Zacarias MD [address] [place] [address] 07/07/2025 1:00 PM EST Appointment [facility] [address] [place] [address] Guillaume Chino, DO [address] [place] [phone] [email or web address] 07/14/2025 9:30 AM EST Office Visit [facility] at [address] [address] Guillaume Chino, DO [address] [place] [address] [email or web address] [email or web address] documented as of this encounter Visit Diagnoses Diagnosis Osteopenia, unspecified location Other specified disorders of bone density and structure, unspecified site documented in this encounter Additional Health Concerns Infection Onset Date Last Indicated Resolved Time CoV-Risk 04/16/2023 04/16/2023 04/27/2023 1:21 AM EST documented as of this encounter Care Teams Painter Helper Relationship Specialty Start Date End Date Darinel Amaya DO [email or web address] PCP - General 03/24/17 12/05/24 Monique Darinel DesaiDO [address] [place] [address] [email or web address] PCP - General Internal Medicine 12/06/24 Guillaume Chino DO [address] [place] [address] [email or web address] Primary Oncologist Hematology and Oncology 06/13/23 documented as of this encounter Additional Source Comments The information contained in this document represents components of the legal health record. It is not the complete legal health record.[facility]
--- OUTSIDE RECORDS SUMMARY | 2025-04-05 07:51 | XMS_ITS | Encounter Summary ---
Author Organization [facility] Address [address] [facility] [address] [place] [address] Phone Care Team Providers Care Arborist Representative Name Role Phone Darinel Amaya DO Primary Care Provider [phone] Guillaume Chino DO Unavailable [phone] Darinel Amaya DO Primary Care Provider [phone] Encounter Details Date Type Department Care Team (Late st Contact Info) Description 09/04/2022 Transcribe Orders Virtual Department [address] [place] [address] Darinel Amaya DO [address] [facility] [place] [address] [place] [address] [email or web address] Bilateral hip pain (Primary Dx) Social History Tobacco Use [...] EST Nutrition [facility] [address] [place] [address] Yamilet Muñoz LDN [address] [address] [email or web address] 07/04/2025 10:20 AM EST Office Visit [facility] [address] [place] [address] Jacki Zacarias MD [address] [address] [email or web address] 07/07/2025 1:00 PM EST Appointment [facility] [address] [place] [address] Guillaume Chino, [address] [address] [email or web address] 07/14/2025 9:30 AM EST Office Visit [facility] at [address] [address] Guillaume Chino, [address] [address] [email or web address] documented as of this encounter Visit Diagnoses Diagnosis Bilateral hip pain- Primary Pain in joint, pelvic region and thigh documented in this encounter Additional Health Concerns Infection Onset Date Last Indicated Resolved Time CoV-Risk 04/16/2023 04/16/2023 04/27/2023 1:21 AM EST documented as of this encounter Care Teams Arborist Representative Relationship Specialty Start Date End Date Darinel Amaya DO PCP - General 03/24/17 12/05/24 Darinel Amaya DO [address] [place] [address] PCP - General Internal Medicine 12/06/24 Guillaume Chino DO [address] [place] [address] [email or web address] Primary Oncologist Hematology and Oncology 06/13/23 documented as of this encounter Additional Source Comments The information contained in this document represents components of the legal health record. It is not the complete legal health record.[facility]
--- OUTSIDE RECORDS SUMMARY | 2025-04-05 07:51 | XMS_ITS | Encounter Summary ---
Author Organization [facility] Address [address] [facility] [address] [place] [address] Phone Care Team Providers Care Environmental Health Officer Name Role Phone Darinel Amaya DO Primary Care Provider [phone] Guillaume Chino DO Unavailable [phone] Darinel Amaya DO Primary Care Provider [phone] Encounter Details Date Type Department Care Team (Late st Contact Info) Description 03/13/2022 Procedure Pass [address] [address] Social History Tobacco Use Types Packs/Day Years [...] Info) Description 05/16/2025 11:00 AM EST Nutrition [facility] 22 [place] [address] Yamilet Muñoz, KATIEN 22 [facility], 1st [place] [address] 07/04/2025 10:20 AM EST Office Visit [facility] 22 [place] [address] Jacki Zacarias MD 22 [facility], 1st [place] [address] [email or web address] 07/07/2025 1:00 PM EST Appointment [facility] [address] [place] [address] Guillaume Chino, DO [address] [place] [id number] [email or web address] 07/14/2025 9:30 AM EST Office Visit [facility] at [address] [address] Guilalume Chino, DO [address] [place] [address] [email or web address] documented as of this encounter Visit Diagnoses Not on filedocumented in this encounter Additional Health Concerns Infection Onset Date Last Indicated Resolved Time CoV-Risk 04/16/2023 04/16/2023 04/27/2023 1:21 AM EST documented as of this encounter Care Teams Environmental Health Officer Relationship Specialty Start Date End Date Darinel Amaya DO PCP - General 03/24/17 12/05/24 Darinel Amaya DO [address] [place] [address] [email or web address] PCP - General Internal Medicine 12/06/24 Guillaume Chino DO [address] [place] [address] [email or web address] Primary Oncologist Hematology and Oncology 06/13/23 documented as of this encounter Additional Source Comments The information contained in this document represents components of the legal health record. It is not the complete legal health record.[facility]
--- OUTSIDE RECORDS SUMMARY | 2025-04-05 07:51 | XMS_ITS | Encounter Summary ---
Author Organization [facility] Address [address] [facility] [address] [place] [address] Phone Care Team Providers Care Prior Authorization Technician Name Role Phone Darinel Amaya DO Primary Care Provider Guillaume Chino DO Unavailable [phone] Drainel Amaya DO Primary Care Provider [phone] Reason for Referral * MRI/CAT Scan - Closed Specialty Diagnoses / Procedures Referred By Susy mims Referred To Contact Radiology Diagnoses Ataxia Memory loss Procedures MRI Brain Cj Lynch MD [address] [place] [address], [address] [place] [address] Phone: tel: fax: [email or web address] Referral ID Status Reason Start Date Expiration Date Visits Re quested Visits Authorized [id number] Closed 05/15/2023 1 1 Encounter Details Date Type Department Care Team (Latest Contact Info) Description 05/15/2023 Transcribe Orders Virtual Department 30 [place], [place] [id number] Cj Lynch MD [address] [place] [address], [address] [place] [phone] [email or web address] Ataxia (Primary Dx); Memory loss Social History Tobacco Use Types Packs/Day Years [...] Info) Description 05/16/2025 11:00 AM EST Nutrition [facility] [address] [place] [address] Yamilet Muñoz LDN [address] [place] [address], [address] [place] [address] 07/04/2025 10:20 AM EST Office Visit [facility] [address] [place] [address] [place] [address] Jacki Zacarias MD [address] [place] [address], [address] [place] [address] 07/07/2025 1:00 PM EST Appointment [facility] 30 [place] [address] Guillaume Chino, DO 30 [place] [address] [email or web address] 07/14/2025 9:30 AM EST Office Visit [facility] 30 [place] [address] Guillaume Chino, DO 30 [place] [address] [email or web address] documented as of this encounter Results * MRI BRAIN WITHOUT CONTRAST (07/06/2023 12:36 PM EST) Anatomical Region Laterality Modality Head Magnetic Resonan ce 07/06/2023 9:03 PM EST Impressions 07/06/2023 11:04 PM EST No intracranial cause for the reported symptoms identified. Narrative 07/06/2023 11:04 PM EST MRI BRAIN WITHOUT CONTRAST Referring clinician's provided indication for this examination in Epic: Outside Radiology Order; ATAXIA TECHNIQUE: MRI BRAIN WITHOUT CONTRAST Multi-sequence, multi-planar MRI of the brain was performed without intravenous contrast. COMPARISON: Brain MRI 04/11/2022 FINDINGS: Brain Parenchyma: Few similar punctate foci of T2/FLAIR hyperintensity in the supratentorial white matter, unlikely to be clinically significant. No evidence of acute infarct, mass lesion, or hemorrhage. Ventricular System and Extra-Axial Spaces: Normal. No evidence of midline shift or hydrocephalus. Extracranial Structures: Arterial flow voids in the skull base are present. Procedure Note Paul Disla MD - 07/06/2023 MRI BRAIN WITHOUT CONTRAST Referring clinician's provided indication for this examination in [facility]:Outside Radiology Order; ATAXIA TECHNIQUE: MRI BRAIN WITHOUT CONTRAST Multi-sequence, multi-planar MRI of the brain was performed withoutintravenous contrast. COMPARISON: Brain MRI 04/11/2022 FINDINGS: Brain Parenchyma: Few similar punctate foci of T2/FLAIR hyperintensity inthe supratentorial white matter, unlikely to be clinically significant. Noevidence of acute infarct, mass lesion, or hemorrhage. Ventricular System and Extra-Axial Spaces: Normal. No evidence of midlineshift or hydrocephalus. Extracranial Structures: Arterial flow voids in the skull base arepresent. IMPRESSION: No intracranial cause for the reported symptoms identified. Cj Lynch MD IMG MR HEAD/NECK Final Resul t documented in this encounter Visit Diagnoses Diagnosis Ataxia- Primary Lack of coordination Memory loss Ataxia Lack of coordination Memory loss documented in this encounter Care Teams Prior Authorization Technician Relationship Specialty Start Date End Date Darinel Amaya DO [email or web address] PCP - General 03/24/17 12/05/24 Darinel Amaya DO [address] [place] [address] PCP - General Internal Medicine 12/06/24 Guillaume Chino DO [address] [place] [address] [email or web address] Primary Oncologist Hematology and Oncology 06/13/23 documented as of this encounter Additional Source Comments The information contained in this document represents components of the legal health record. It is not the complete legal health record.[facility]
--- OUTSIDE RECORDS SUMMARY | 2025-04-05 07:51 | XMS_ITS | Encounter Summary ---
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 Name Role Phone Darinel Amaya DO Primary Care Provider [phone] Guillaume Chino DO Unavailable [phone] Darinel Amaya DO Primary Care Provider [phone] Encounter Details Date Type Department Care Team (Late st Contact Info) Description 03/18/2022 Procedure Pass [address] [address] Social History Tobacco Use Types Packs/Day Years [...] Info) Description 05/16/2025 11:00 AM EST Nutrition [facility] 22 [place] [address] Yamilet Muñoz, KATIEN [address] [facility], 1st [place] [address] 07/04/2025 10:20 AM EST Office Visit [facility] 22 [place] [address] Jacki Zacarias MD [address] [facility], 1st [place] [address] [email or web address] 07/07/2025 1:00 PM EST Appointment [facility] [address] [place] [address] Guillaume Chino, DO [address] [place] [address] [email or web address] 07/14/2025 9:30 AM EST Office Visit [facility] at [address] [address] Guillaume Chino, DO 30 [place] [address] [email or web address] documented as of this encounter Visit Diagnoses Not on filedocumented in this encounter Additional Health Concerns Infection Onset Date Last Indicated Resolved Time CoV-Risk 04/16/2023 04/16/2023 04/27/2023 1:21 AM EST documented as of this encounter Care Teams Wastewater Treatment Plant Attendant Relationship Specialty Start Date End Date Darinel Amaya DO PCP - General 03/24/17 12/05/24 Darinel Amaya DO [address] [place] [address] [email or web address] PCP - General Internal Medicine 12/06/24 Guillaume Chino DO [address] [place] [address] [email or web address] Primary Oncologist Hematology and Oncology 06/13/23 documented as of this encounter Additional Source Comments The information contained in this document represents components of the legal health record. It is not the complete legal health record.[facility]
--- OUTSIDE RECORDS SUMMARY | 2025-04-05 07:51 | XMS_ITS | Clinical Summary ---
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 Prn , under breasts for rash, itching 30 g 1 03/13/20 22 Active cetirizine (ZYRTEC) 10 MG tablet Take 1 tablet by mouth daily as needed. Active BASAGLAR KWIKPEN U-100 INSULIN 100 unit/mL (3 mL) InPn injection penIndications:Typ e 2 diabetes mellitus with diabetic mononeuropathy, with long-term current use of insulin Inject 32 Units under the skin daily. DX:E11.41 30 mL 3 04/19/20 24 Active insulin pen needles, disposable, (BD AMA 2ND GEN PEN NEEDLE) 32 gauge x 5/32 NdleIndications:Ty pe 2 diabetes mellitus with diabetic mononeuropathy, with long-term current use of insulin USE 1 PEN TO INJECT MED SUBCUTANEOUSLY ONCE DAILY. DX:E11.41 100 each 3 04/19/20 24 Active galantamine (RAZADYNE ER) 16 MG 24 hr capsule Take by mouth daily. 12/08/19 25 Active ONETOUCH ULTRA TEST Strp stripsIndications: Type 2 diabetes mellitus with diabetic mononeuropathy USE TO TEST BLOOD SUGAR EVERY MORNING 100 strip 01/22/20 25 Active Active Problems Patient Care Coordination No te Formatting of this note migh t be different from the original. Height 169 cm with shoes taken by RB on 06/20/2023 Problem Noted Date Diagnosed Date Cutaneous candidiasis 03/13/2022 Overview (03/13/2022): Bilaterally underneath breasts when in conditions of heat, humidity, sweat Response well to combination triamcinolone and nystatin Right lower quadrant abdominal pain 09/03/2018 Assessment & Plan (09/03/2018 10:44 AM EDT): I can appreciate no hernia or mass on exam. It is difficult to pinpoint an exact site of pain. She describes pain with bending to tie her shoes, however, does not object to movement of her hip on exam. She wonders about a possible abdominal malignancy such as ovarian or colon. I would recommend starting with an ultrasound of the abdomen. If that shows no source for her pain, I would recommend seeing her stoper for evaluation of her ovaries, as well as seeing someone at for colonoscopy. Edema extremities 02/16/2018 Overview (03/09/2019): Mar 09 IMO Regulatory Release Diagnosis Update Assessment & Plan (02/16/2018 12:32 PM EDT): Several week h/o lower extremity and hand edema, there has been associated weight gain over the past several months Given h/o treated hyperthyroid state in the past, these symptoms may be related to development of hypothyroidism, I have discussed with Lizzy to discuss ordering of routine TFTs with Dr. Cummins Graves disease 02/16/2018 Non morbid obesity 02/16/2018 Assessment & Plan (04/19/2024 6:15 PM EST): Weight has been stable Weight gain/loss may affect insulin requirement Encouraged to do her best to follow healthy lifestyle habits, Lizzy has been more active with walking as she now has a dog BMI ~32 Assessment & Plan (10/17/2023 1:19 PM EDT): Weight has been stable per Lizzy based on her home weights Weight gain/loss may affect insulin requirement Encouraged to do her best to follow healthy lifestyle habits BMI 31-32 Assessment & Plan (04/18/2023 10:35 AM EST): Weight has been stable per Lizzy based on her home weights Weight gain/loss may affect insulin requirement Encouraged to do her best to follow healthy lifestyle habits Assessment & Plan (04/19/2022 10:43 AM EST): Weight has been stable since earlier this year per our records but Lizzy reports that her weight had been down and she has regained ~10lb over the summer Weight gain likely explains modest increase in insulin requirement though Lizzy is reassured that her dose remains modest Encouraged to do her best to follow healthy lifestyle habits Assessment & Plan (04/16/2021 3:24 PM EST): Weight has been stable since last fall per our records Encouraged to follow healthy lifestyle habits Assessment & Plan (02/17/2020 11:19 AM EDT): Lizzy reports a recent weight gain which may have affected her blood sugars/insulin requirement however there is a documented loss of 8lb since last April and a 14lb weight loss since early 2018 Encouraged to try to be more active as the weather cools Encouraged to return to more healthy balanced eating, encouraged to consider visit with RD but declines at this time Assessment & Plan (02/17/2019 2:10 PM EDT): There has been very modest but steady weigth loss since June, ~6lb total BMI remains in mid 30s so ongoing efforts to improve lifestyle with weight loss in mind would be very helpful to overall wellbeing and also to blood sugar management Mixed hyperlipidemia 08/21/2017 Assessment & Plan (12/20/2024 4:42 PM EDT): No recent lipid panel is available for review LDL target is <100, most oprimally <70 No longer on statin therapy per record due to intolerance Assessment & Plan (04/19/2024 6:14 PM EST): No recent lipid panel is available for review LDL target is <100, most oprimally <70 No longer on statin therapy per record due to intolerance Assessment & Plan (10/17/2023 1:22 PM EDT): Most recent lipid panel from Apr 2022 reviewed, LDL was very high at 177 LDL target is <100, most oprimally <70 No longer on statin therapy per record due to intolerance Assessment & Plan (04/18/2023 10:34 AM EST): Most recent lipid panel from Apr 2022 reviewed, LDL was very high at 177 LDL target is <100, most oprimally <70 No longer on statin therapy per record due to intolerance Assessment & Plan (04/19/2022 10:45 AM EST): No updated lipid panel is available for review LDL target is <100, most oprimally <70 No longer on statin therapy per record Assessment & Plan (04/16/2021 3:23 PM EST): No updated lipid panel is available for review LDL target is <100, most oprimally <70 Continues on low dose, moderate intensity statin therapy Assessment & Plan (02/17/2020 11:20 AM EDT): Most recent lipid profile indicates LDL is just above goal at 107, we discussed that the goal is <100 Tolerating current low dose of atorvastatin We discussed a modest increase of atorvastatin to 20mg daily, Lizzy will trial this by doubling her current tablets and if she tolerates this well she will let me know and we will call in a new prescription for 20mg tabs Assessment & Plan (02/17/2019 2:13 PM EDT): I do not have an LDL on file to review Lizzy is certainly encouraged to be on a statin medication for primary cardiovascular prevention and we discussed these recommendations today Lizzy has been on rosuvastatin at low dose recently but stopped this due to GI side effects, she is made aware that she may not have these same side effects with another agent in the class and she is open to a trial of atorvastatin, prescription for provided for her today Lipid panel should be rechecked in 6-8 weeks to assess dosing effect of atorvastatin Encouraged to follow healthy eating Assessment & Plan (02/16/2018 12:33 PM EDT): No recent LDL on file Continues on moderate intensity statin Type 2 diabetes mellitus with diabetic mononeuro yumiko 08/21/2017 Assessment & Plan (12/20/2024 4:49 PM EDT): Continues on basal insulin, we revisited target FPG ranges per Lizzy's recent patterns her current Basaglar dose may be higher than necessary, she is encouraged to lower her dose to 25 units if patterns are frequently in 90s or lower Also advised to check glucose in mid afternoon when she feels need to eat to ensure that this is not due to a low glucose pattern, if there is a trend for lows at this time then this too may indicate an overaggressive basal insulin dosage We discussed monitoring patterns if Lizzy becomes more active, she is likely to have lower insulin requirement if more active and will need to monitor for low blood sugars if activity increases We discussed basic considerations for meal preparation, Lizzy is reassured that she does not need to avoid all sugar however she should be try to aim for balance in her macronutrients, we discussed likely benefit in meeting with Yamilet Muñoz for more specific meal planning counseling Continues to follow with Dr. Brambila for neuropathy and cognitive decline, has also met with Dr. Tana Chapman for evaluation of cognitive decline and continues to get support from Dr. Chapman Advised to continue her efforts at eating healthy balanced diet and also advised to continue to be active as consistently as she can Lizzy will return in 6 months for routine follow up, she is encouraged to contact me with any questions or concerns in the meantime Assessment & Plan (04/19/2024 6:18 PM EST): Continues on basal insulin, we revisited target FPG ranges and prior to the past 7-10 days these were too often in 80s, more recently these have been more consistently in low 100s which we discussed is more appropriate, will continue current dose of Basaglar based on most recent readings but advised to lower this if her FPG lower to 90s or lower again We discussed monitoring patterns if Lizzy becomes more active, she is likely to have lower insulin requirement if more active and will need to monitor for low blood sugars if activity increases Continues to follow with Dr. Brambila for neuropathy and cognitive decline, we also revisited Dr. Tana Chapman for evaluation of cognitive decline, contact information given again, Lizzy has had neuropsych testing already per Dr. Brambila Advised to continue her efforts at eating healthy balanced diet and also advised to continue to be active as consistently as she can Lizzy will return in 6 months for routine follow up, she is encouraged to contact me with any questions or concerns in the meantime Assessment & Plan (10/17/2023 1:25 PM EDT): Continues on basal insulin, we revisited target FPG ranges and based on her reported patterns these are mostly at target though likely too often in 80s we discussed that readings should be more consistently in low 100s, advised to consider reducing Tresiba dosage modestly if lower readings on waking We discussed monitoring patterns if Lizzy becomes more active, we discussed benefits of regular activity on cognitive health, she is likely to have lower insulin requirement if more active Continues to follow with Dr. Brambila for neuropathy and cognitive decline, will be starting PT for DPN, also advised about seeing podiatry for appropriate foot wear, made aware that she qualifies for diabetic shoes annually We also discussed Dr. Tana Chapman for evaluation of cognitive decline, contact information given Advised to continue her efforts at eating healthy balanced diet and also advised to be active as consistently as she can Lizzy will return in 6 months for routine follow up, she is encouraged to contact me with any questions or concerns in the meantime Assessment & Plan (04/18/2023 10:44 AM EST): Continues on basal insulin, we revisited target FPG ranges and based on her reported patterns these are mostly at target though likely too often in 80s we discussed that readings should be more consistently in low 100s We discussed lowering basal insulin dosage and changing the timing from evening dosing to morning dosing may also be helpful We discussed monitoring patterns if Lizzy becomes more active, we discussed benefits of regular activity on cognitive health, she is likely to have lower insulin requirement if more active We discussed likely benefit of CGM evaluation, Lizzy is not interested in personal CGM use and we did discuss periodic professional CGM evaluations to help guide insulin dosing considerations as well as impact of lifestyle habits on glucose patterns Advised to continue her efforts at eating healthy balanced diet and also advised to be active as consistently as she can Lizzy will return in 6 months for routine follow up, she is encouraged to contact me with any questions or concerns in the meantime Assessment & Plan (04/19/2022 10:47 AM EST): Continues on basal insulin, we revisited target FPG ranges and based on her reported patterns these are at target We discussed lowering basal insulin if frequent glucose readings at bottom of this target range or lower as this would likely indicate lower insulin requirement Advised to continue her efforts at eating healthy balanced diet and staying active now that weather is more conducive to this, increased activity may reduce insulin requirement Lizzy will return in one year for routine follow up, she is encouraged to contact me with any questions or concerns in the meantime Assessment & Plan (04/16/2021 3:28 PM EST): Continues on basal insulin, we discussed target FPG ranges and based on her reported patterns the likelihood that she needs less basal insulin We reviewed hypoglycemia symptoms and how these may differ between daytime symptoms while awake and those at night while asleep, Lizzy has been waking with sweats around 3am on most nights, she is advised to check her blood sugar at this time and lower her Basaglar dosage if these readings are <90 We again discussed CGM eval to assess overall patterns but Lizzy declines at this time Advised to continue her efforts at eating healthy balanced diet Lizzy will return in one year for routine follow up, she is encouraged to contact me with any questions or concerns in the meantime Assessment & Plan (02/17/2020 11:26 AM EDT): Continues on basal insulin, recent increase in dosage has resulted in FPG in low normal to below normal range We discussed hypoglycemia risk overnight Will decrease Lantus to 36u daily We discussed reasonable prandial rise in glucose 2hrs after eating Encouraged to check pre and post prandially to assess patterns, we discussed CGM eval to assess overall patterns but Lizzy declines at this time Encouraged to try to be more active more consistently, cooler weather should help Lizzy get back on track with this; advised to continue her efforts at eating healthy balanced diet Encouraged to consider visit with diabetic educator, she will think about it but declines at this time Assessment & Plan (02/17/2019 2:08 PM EDT): Continues to do very well on current regimen of basal insulin, will continue current dosage Encouraged to continue to stay active but being mindful about balance issues, continues to work with PT on this Encouraged to follow healthy diet Optimal diet and exercise will improve insulin sensitivity, help with weight loss and reduce insulin requirement Lizzy will follow up with us in one year and as needed, she is encouraged to call with any questions or concerns Assessment & Plan (02/16/2018 12:35 PM EDT): A1c at goal and FPG excellent We discussed the some information regarding blood sugar excursions during the day may also be helpful, encouraged to monitor at least occasionally premeal/postprandial blood sugars Encouraged to call with any concerns regarding blood sugar patterns, we also encourage patients to self adjust insulin doses if they see changing patterns and we can certainly help Lizzy become more confident with this if she desires Lizzy reports desire to follow up with us once a year, she is also encouraged to return to meet with our diabetic educator staff as needed Dyspnea on exertion 08/21/2017 Palpitations 08/20/2017 Encounters Date Type Department Care Team Description 03/23/2025 Telephone [facility] [address] [place] [address] Nidia Madrigal PVI outreach 01/31/2025 10:45 AM EDT Office Visit [address] [address] Dannie Figueroa, PATaylerC Latonya Wright, PT Acute pain of right shoulder (Primary Dx) 01/26/2025 8:30 AM EDT Office Visit [address] [address] Dannie Figueroa PA-C Menard-Johnston, Erin, PT Acute pain of right shoulder (Primary Dx) 01/25/2025 Telephone [facility] [address] [address] Loretta Yajaira Macedo [place] DWO 01/20/2025 Refill [facility] [address] [address] Jacki Zacarias MD Medication Refill 01/19/2025 11:45 AM EDT Office Visit [address] [address] Dannie Figueroa, Barbara Lares, WAGNER Acute pain of right shoulder (Primary Dx) 01/17/2025 9:45 AM EDT Office Visit [address] [address] Dannie Figueroa PA-C Mitchell, Ian, PT Acute pain of right shoulder (Primary Dx) 01/13/2025 8:10 AM EDT - 01/13/2025 3:38 PM EDT Emergency [facility] [address] [place] [id number] Trinidad Oquendo MD Discharge Disposition: Home or Self Care 01/13/2025 Procedure Pass [facility], Ct Scan - [facility] [address] [place] [id number] 01/12/2025 9:45 AM EDT Office Visit [address] [address] Dannie Figueroa, Deonte Daigle, PT Acute pain of right shoulder (Primary Dx) 01/05/2025 11:40 AM EDT Office Visit [facility] [address] [place] [id number] Carola Multani PA-C Strain of right shoulder, subsequent encounter (Primary Dx) from Last 3 Months Immunizations Immunization Administration Dates Next Due COVID-19 (Pre-03/31) Pfizer Vaccine, mRNA, jay jay-sucrose, PF 03/20/2022,09/19/2021,04/18/2021,2020,08/28/2020 COVID-19 Pfizer Comirnaty Vaccine 12+ 03/24/2023 Tdap 01/30/2022 Family History Medical History Relation Comments No Known Problems Brother 1 No Known Problems Brother 2 No Known Problems Brother 3 Cancer Father melanoma Diabetes Maternal Aunt 1 Diabetes Maternal Aunt 2 Diabetes Maternal Aunt 3 Diabetes Maternal Grandmother Cancer Mother lung cancer Alzheimer's disease Paternal Grandmother No Known Problems Sister 1 No Known Problems Sister 2 No Known Problems Son 1 No Known Problems Son 2 Relation Status Comments Brother 1 Brother 2 Brother 3 Father Maternal Aunt 1 Maternal Aunt 2 Maternal Aunt 3 Maternal Grandmother Mother Paternal Grandmother Sister 1 Sister 2 Son 1 Son 2 Social History Tobacco Use Types Packs/Day Years Used Date Smoking Tobacco: Never Passive Smoke Exposure: Never Smokeless Tobacco: Never Tobacco Cessation:Counseling Given: Not Answered Alcohol Use Standard Drinks/Week Comments No 0 [...] Orientation Straight 06/16/2017 9: 38 AM EST Last Filed Vital Signs Vital Sign Reading Time Taken Comments Blood Pressure 138/65 01/13/2025 3:00 PM EDT Pulse 66 01/13/2025 3:00 PM EDT Temperature 36.2 C (97.1 F) 01/13/2025 3:00 PM EDT Respiratory Rate 18 01/13/2025 3:00 PM EDT Oxygen Saturation 100% 01/13/2025 3:00 PM EDT Inhaled Oxygen Concentration - - Weight 89.8 kg (198 lb) 01/13/2025 8:18 AM EDT Height 167.6 cm (5' 6 ) 01/13/2025 8:18 AM EDT Body Mass Index 31.96 01/13/2025 8:18 AM EDT Plan of Treatment Upcoming Encounters Date Type Department Care Team (Late st Contact Info) Description 05/16/2025 11:00 AM EST Nutrition [facility] [address] [place] [address] Yamilet Muñoz LDN [address] [place] [address] 07/04/2025 10:20 AM EST Office Visit [facility] [address] [place] [address] Jacki Zacarias MD [address] [place] [address] [email or web address] 07/07/2025 1:00 PM EST Appointment [facility] [address] [place] [address] Guillaume Chino, DO [address] [place] [address] [email or web address] 07/14/2025 9:30 AM EST Office Visit [facility] [address] [place] [address] Guillaume Chino, DO [address] [place] [address] [email or web address] Maintenance Due Date Last Done Comments DEPRESSION SCREENING 1965 HEPATITIS C SCREENING 09/09/1971 LIPID PANEL 09/09/1971 PNEUMOCOCCAL VACCINES (50+ years) (1 of 2 - PCV) 1972 COLOGUARD 1998 FIT TEST 1998 FOBT 1998 SIGMOIDOSCOPY 1998 VIRTUAL COLONOSCOPY 1998 RSV VACCINE (1 - Risk 50-74 years 1-dose series) 09/09/2003 ZOSTER VACCINES (1 of 2) 09/09/2003 URINE MICROALBUMIN/CREATININE RATIO 04/17/2023 04/17/2022 DIABETIC EYE EXAM 06/19/2024 06/19/2023 INFLUENZA VACCINE (#1) 2025 COVID-19 VACCINE (2024- season) 2025 03/24/2023, 03/20/2022, 03/20/2022, Additional history exists HEMOGLOBIN A1C 06/07/2025 12/06/2024, 10/07, 04/18/2023, Additional history exists BLOOD PRESSURE 06/22/2025 12/20/2024 MAMMOGRAM 10/19/2026 10/19/2024, 01/08, 06/06/2022, Additional history exists COLONOSCOPY 11/15/2031 11/14/2021 COLORECTAL CANCER SCREENING 11/15/2031 Adult Td,Tdap Booster 01/31/2032 01/30/2022 OSTEOPOROSIS SCREENING INITIAL (ONE-TIME) Completed 08/26/2024 SMOKING STATUS SCREENING (Once After 26 Yrs) Completed 01/05/2025 HEPATITIS A VACCINES Aged Out No long er eligible based on patient's age to complete this topic HIB VACCINES Aged Out No longer eligi ble based on patient's age to complete this topic MENINGOCOCCAL VACCINES (ACWY) Aged Out No longer eligible based on patient's age to complete this topic MENINGOCOCCAL VACCINES (B) Aged Out N o longer eligible based on patient's age to complete this topic Medical Devices Implanted Type Area Newspaper Reporter Device Identifier Shelf Expiration Date Model / Serial / Lot Marker Biopsy 13mm Site [employer] For Eviva Ti Net Bioabsorbable Shape 1 Mini Cork Bx/10ea - [id number] Implanted:Qty: 1 on 04/20/2024 by Gavino Guerra MD at [facility] Clip Right: Breast Sport Street [employer] SMARK-EVIV A-[id number] / / [id number] Description:Top hat shape ti tanium site marker Procedures Procedure Name Priority Date/Time Associated Diagnosis Comments CT ABDOMEN/PELVIS WITH CONTRAST Routine 01/13/2025 12:43 PM EDT TROPONIN Routine 01/13/2025 11:05 AM EDT LFTS (HEPATIC PANEL) STAT 01/13/2025 11:05 AM EDT LIPASE STAT 01/13/2025 11:05 AM EDT US ABDOMEN LIMITED RIGHT UPPER QUADRANT Routine 01/13/2025 10:52 AM EDT URINALYSIS W/REFLEX URINE CULTURE STAT 01/13/2025 10:41 AM EDT TROPONIN Routine 01/13/2025 9:24 AM EDT BASIC METABOLIC PANEL STAT 01/13/2025 9:24 AM EDT CBC AND DIFFERENTIAL STAT 01/13/2025 9:24 AM EDT POCT GLUCOSE Routine 01/13/2025 9:18 AM EDT ECG 12-LEAD STAT 01/13/2025 8:51 AM EDT HEMOGLOBIN A1C Routine 12/06/2024 9:01 AM EDT Type 2 diabetes mellitus without complication, unspecified whether supervisor intermediates insulin use BI MAMMOGRAM DIAGNOSTIC WITH TOMOSYNTHESIS WITH CAD (BILATERAL) Routine 10/19/2024 12:54 PM EDT Other abnormal and inconclusive findings on diagnostic imaging of breast BD DXA AXIAL (SPINE) WITH HIP Routine 08/26/2024 1:49 PM EDT Encounter for screening for osteoporosis DIABETES EYE EXAM FOR RESULT ENTRY ONLY Routine 06/19/2023 OUTSIDE URINE MALB/CRE RATIO Routine 04/17/2022 ENDOSCOPY, COLON 11/14/2021 10:3 8 AM EDT from Last 3 Months or Most Recently Relevant to Health Maintenance Results * CT ABDOMEN/PELVIS WITH CONTRAST (01/13/2025 12:43 PM EDT) Anatomical Region Laterality Modality Abdomen, Pelvis Computed Tomogra phy 01/13/2025 1:48 PM EDT Impressions 01/13/2025 2:01 PM EDT No acute abnormality in the abdomen or pelvis. Narrative 01/13/2025 2:[address] ABDOMEN/PELVIS WITH CONTRAST Referring clinician's provided indication for this examination in Epic: * Abdominal pain, acute, nonlocalized; ruq pain radiating into rlq, with nausea TECHNIQUE: Multidetector-row CT of the abdomen and pelvis was performed after administration of intravenous contrast using tailored dose modulation techniques. Images were reconstructed in the axial, coronal, and sagittal planes. COMPARISON: US from the same day FINDINGS: Lower Chest: No consolidation or pleural effusions. Liver: No focal lesions. Fatty liver. Biliary: Normal gallbladder. No biliary ductal dilatation. Spleen: No splenomegaly or focal lesions. Pancreas: Normal. No masses or ductal dilatation. Adrenal Glands: Normal. No nodules. Kidneys/Ureters: Normal. No solid masses, stones, or hydronephrosis. Bowel: Normal appendix. Sigmoid colon diverticulosis. Peritoneum/Retroperitoneum: Normal. No masses, pneumoperitoneum, or fluid. Lymph Nodes: Normal. No lymphadenopathy. Pelvic Organs/Bladder: Calcified fibroid uterus. Vessels: Vascular calcifications. No abdominal aortic aneurysm. Bones/Soft Tissues: No significant abnormality. Procedure Note Magdalena Urias MD, ASIA - 01/13/2025 CT ABDOMEN/PELVIS WITH CONTRAST Referring clinician's provided indication for this examination in [facility]: *Abdominal pain, acute, nonlocalized; ruq pain radiating into rlq, withnausea TECHNIQUE: Multidetector-row CT of the abdomen and pelvis was performedafter administration of intravenous contrast using tailored dosemodulation techniques. Images were reconstructed in the axial, coronal,and sagittal planes. COMPARISON: US from the same day FINDINGS: Lower Chest: No consolidation or pleural effusions. Liver: No focal lesions. Fatty liver. Biliary: Normal gallbladder. No biliary ductal dilatation. Spleen: No splenomegaly or focal lesions. Pancreas: Normal. No masses or ductal dilatation. Adrenal Glands: Normal. No nodules. Kidneys/Ureters: Normal. No solid masses, stones, or hydronephrosis. Bowel: Normal appendix. Sigmoid colon diverticulosis. Peritoneum/Retroperitoneum: Normal. No masses, pneumoperitoneum, orfluid. Lymph Nodes: Normal. No lymphadenopathy. Pelvic Organs/Bladder: Calcified fibroid uterus. Vessels: Vascular calcifications. No abdominal aortic aneurysm. Bones/Soft Tissues: No significant abnormality. IMPRESSION: No acute abnormality in the abdomen or pelvis. Trinidad Oquendo MD IMG CT ABD/PELVIS Final R esult * LFTs (hepatic panel) (01/13/2025 11:05 AM EDT) ALKALINE PHOSPHATASE 88 39 - 117 U/L [facility] TOTAL BILIRUBIN 0.5 0.0 - 1.2 mg/dL [facility] DIRECT BILIRUBIN 0.1 0.0 - 0.2 mg/dL [facility] Bilirubin (Indirect) NOT CALCULATED 0 - 1.5 mg/dL [facility] AST 24 0 - 37 U/L [facility] ALT 29 0 - 40 U/L [facility] TOTAL PROTEIN 7.0 6.5 - 8.0 g/dL [facility] ALBUMIN 4.0 3.9 - 4.8 g/dL [facility] GLOBULIN 3.0 1 - 4.8 g/dL [facility] A/G Ratio 1.33 1.00 - 4.[address] [facility] Blood 01/13/2025 11:0 5 AM EDT 01/13/2025 11:10 AM EDT Trinidad Oquendo MD LAB BLOOD ORDERABLES Mya l Result [address] [id number] * Troponin (01/13/2025 11:05 AM EDT) Only the most recent of2 resultswithin the time period is included. Troponin-T, HS Gen5 9 0 - 9 ng/L [facility] 01/13/2025 11:0 5 AM EDT 01/13/2025 11:10 AM EDT Trinidad Oquendo MD LAB BLOOD ORDERABLES Mya l Result [address] [address] * Lipase (01/13/2025 11:05 AM EDT) LIPASE 16 16 - 63 U/L [facility] Blood 01/13/2025 11:0 5 AM EDT 01/13/2025 11:10 AM EDT us Trinidad Oquendo MD LAB BLOOD ORDERABLES Mya l Result [facility] [address] [place] [address] * US ABDOMEN LIMITED RIGHT UPPER QUADRANT (01/13/2025 10:52 AM EDT) Anatomical Region Laterality Modality Abdomen Ultrasound 01/13/2025 12:0 9 PM EDT Impressions 01/13/2025 12:23 PM EDT 1. No evidence of cholelithiasis or cholecystitis. 2. Fatty liver. ATTESTATION: I, Adrián Bernal as teaching physician, have reviewed the images for this case and if necessary edited the report originally created by Enrique Shah. Narrative 01/13/2025 12:23 PM EDT US ABDOMEN LIMITED RIGHT UPPER QUADRANT Referring clinician's provided indication for this examination in Epic: Cholecystitis; r/o gallstones TECHNIQUE: US Abdominal limited right upper quadrant. COMPARISON: US ABDOMEN LIMITED RIGHT UPPER QUADRANT FINDINGS: Liver: Diffusely increased echogenicity consistent with fatty liver. Main Portal Vein: Patent with normal direction of flow. Gallbladder: No gallstones or gallbladder wall thickening. Workman's Sign: Negative. Biliary: Normal. No intrahepatic or extrahepatic biliary ductal dilatation. The common bile duct measures 4 mm. Right Kidney: No stones or hydronephrosis. Procedure Note Adrián Bernal MD - 01/13/2025 US ABDOMEN LIMITED RIGHT UPPER QUADRANT Referring clinician's provided indication for this examination in Epic:Cholecystitis; r/o gallstones TECHNIQUE: US Abdominal limited right upper quadrant. COMPARISON: US ABDOMEN LIMITED RIGHT UPPER QUADRANT FINDINGS: Liver: Diffusely increased echogenicity consistent with fatty liver. Main Portal Vein: Patent with normal direction of flow. Gallbladder: No gallstones or gallbladder wall thickening. Workman's Sign: Negative. Biliary: Normal. No intrahepatic or extrahepatic biliary ductaldilatation. The common bile duct measures 4 mm. Right Kidney: No stones or hydronephrosis. IMPRESSION: 1. No evidence of cholelithiasis or cholecystitis. 2. Fatty liver. ATTESTATION: I, Adrián Bernal as teaching physician, have reviewed theimages for this case and if necessary edited the report originally createdby Enrique Shah. us Trinidad Oquendo MD IMG US ABDOMEN Final Res ult * Urinalysis w/reflex Urine Culture (01/13/2025 10:41 AM EDT) COLOR Yellow Yellow [facility] CLARITY Clear [facility] GLUCOSE Negative Negative [facility] BILI Negative Negative [facility] KETONES Negative Negative [facility] SPECIFIC GRAVITY 1.010 1.005 - 1.[address] [facility] BLOOD Negative Negative [facility] PH 7.5 5.0 - 8.[address] [facility] Protein-UA Negative Negative [facility] NITRITE Negative Negative [facility] Leukocyte esterase, ur Negative Negative [facility] Urine (Urine) 01/13/2025 10: 41 AM EDT 01/13/2025 10:45 AM EDT us Al Johansen MD URINE ORDERABLES F inal Result [facility] [address] [place] [address] * (ABNORMAL) CBC and differential (01/13/2025 9:24 AM EDT) WBC 9.09 4.00 - 11.00 K/uL [facility] RBC 4.87 4.00 - 5.20 M/uL [facility] HGB 14.8 12.0 - 16.0 g/dL [facility] HCT 45.0 36.0 - 46.0 % [facility] PLT 203 150 - 450 K/uL [facility] MCV 92.4 80.0 - 100.[address] [facility] MCH 30.4 27.0 - 31.[address] [facility] MCHC 32.9 32.0 - 36.0 g/dL [facility] RDW 12.8 11.5 - 14.5 % [facility] MPV 11.2 8.4 - 12.[address] [facility] NRBC 0.00 0.00 /[address] [facility] ABSOLUTE NRBC 0.00 0.00 K/uL [facility] DIFF METHOD Auto [facility] NEUTS 84.7(H) 48.0 - 76.0 % [facility] LYMPHS 9.4(L) 18.0 - 41.0 % [facility] MONOS 4.5 4.0 - 11.0 % [facility] EOS 0.3 0.0 - 5.0 % [facility] BASOS 0.4 0.0 - 1.5 % [facility] Granulocytes, immature (%) 0.7 0.0 - 0.9 % [facility] ABSOLUTE NEUTS 7.70(H) 1.92 - 7.60 K/uL [facility] ABSOLUTE LYMPHS 0.85 0.72 - 4.10 K/uL [facility] ABSOLUTE MONOS 0.41 0.16 - 1.10 K/uL [facility] ABSOLUTE EOS 0.03 0.00 - 0.50 K/uL [facility] ABSOLUTE BASOS 0.04 0.00 - 0.15 K/uL [facility] Granulocytes, immature 0.06 0.00 - 0.09 K/uL [facility] Blood 01/13/2025 9:24 AM EDT 01/13/2025 9:59 AM EDT us Al Johansen MD LAB BLOOD ORDERABL ES Final Result [facility] [address] [place] [address] * (ABNORMAL) Basic metabolic panel (01/13/2025 9:24 AM EDT) SODIUM 138 133 - 146 mmol/L [facility] CHLORIDE 104 96 - 108 mmol/L [facility] POTASSIUM 4.8 3.3 - 5.1 mmol/L [facility] CO2 24 21 - 35 mmol/L [facility] BUN 11 6 - 19 mg/dL [facility] CREATININE 0.50 0.5 - 1.5 mg/dL [facility] GLUCOSE 167(H) 70 - 99 mg/dL [facility] CALCIUM 9.9 8.4 - 10.3 mg/dL [facility] EGFR 100 >59 mL/min/1.[address] [facility] Comment:Estimated glomerular filtration rate calculated using the CKD-EPI refit equation. ANION GAP 15 10 - 20 mmol/L [facility] Blood 01/13/2025 9:24 AM EDT 01/13/2025 9:59 AM EDT us Al Johansen MD LAB BLOOD ORDERABL ES Final Result [address] [address] * (ABNORMAL) POCT Glucose (01/13/2025 9:18 AM EDT) [facility] Glucose, POCT 149(H) 70 - 100 mg/dL [facility] 01/13/2025 9:18 AM EDT 01/13/2025 9:20 AM EDT us Unknown Unknown POINT OF CARE TEST ORDERABLES Final Result [address] [address] * ECG 12-LEAD (01/13/2025 8:51 AM EDT) Ventricular Rate EKG/MIN 56 BPM [facility] Atrial Rate 56 BPM [facility] DC Interval 160 ms [facility] QRS Duration 86 ms [facility] QT Interval 440 ms [facility] QTC Interval 424 ms [facility] P [place] 50 degrees [facility] R Wave [place] -11 degrees [facility] T Wave [place] 49 degrees [facility] 01/13/2025 8:51 AM EDT 01/14/2025 6:55 AM EDT Narrative [facility] - 01/14/2025 6:55 AM EDT Sinus bradycardia Minimal voltage criteria for LVH, may be normal variant Borderline ECG When compared with ECG of 16-Apr-2023 11:34, Vent. rate has decreased by 30 bpm Confirmed by Abhinav Wallace ([id number]) on 01/14/2025 6:55:13 AM us Trinidad Oquendo MD ECG ORDERABLES Final Res ult Performing Organization Address City/[facility]/ZIP Co de Phone Number [facility] * (ABNORMAL) Hemoglobin A1c (12/06/2024 9:01 AM EDT) HEMOGLOBIN A1C 6.7(H) 4.3 - 5.8 % [facility] Blood 12/06/2024 9:01 AM EDT 12/06/2024 9:02 AM EDT us Narinder Cummins DO LAB BLOOD ORDERABLES Final Resul t Performing Organization Address [facility] Co de Phone Number [address] [address] * BI MAMMOGRAM DIAGNOSTIC WITH TOMOSYNTHESIS WITH [...] JIMENEZ IMG MG EXAMS Final Resul t * BD DXA AXIAL (SPINE) WITH HIP (08/26/2024 1:49 PM EDT) Anatomical Region Laterality Modality Bone Density Bone Density 08/26/2024 1:44 PM EDT Impressions 08/30/2024 8:35 AM EDT Interpretation: Osteopenia. Narrative 08/30/2024 8:35 AM EDT Referred By: NARINDER CUMMINS Indications: Osteoporosis Scanner: Seriously A with serial# of [id number] located at [facility] Bone Density Scan (DXA) 08/26/24 Details of [...] -2.5), or Osteoporosis (T-score <= -2.5). At [facility], T-scores are compared to peak bone density [...] Referred By: NARINDER CUMMINS Indications: Osteoporosis Scanner: Seriously A with serial# of [id number] located at [facility] Bone Density Scan (DXA) 08/26/24 Details of [...] -2.5), or Osteoporosis (T-score <= -2.5). At [facility], T-scores are compared to peak bone density [...] density results. IMPRESSION: Interpretation: Osteopenia. us Narinder A Bigda DO IMG BD BONE DENSITY DEXA Final R esult * DIABETES EYE EXAM FOR RESULT ENTRY ONLY (06/19/2023) [facility] EYE EXAM patient reported Historical Provider HEALTH MAINTENANCE Final Result * Outside Urine MALB/Cre Ratio (04/17/2022) [facility] Microalbumin/Cr eatinine Ratio, urine - External 16.3 us Historical Provider LAB BLOOD ORDERABLES Mya lopez Result * ENDOSCOPY, COLON (11/14/2021 10:38 AM EDT) Narrative Transcriptions Roosevelt Cordova MD - 11/14/2021 10:38 AM EDT Patient Name: Lizzy Stacy Attending MD:: ROOSEVELT CORDOVA MD Procedure Date: 11/14/2021 10:38 AM Date of : 1955 Age: 66 Admit Type: Outpatient Gender: Female Room: [place] [address] Referring MD: NARINDER CUMMINS DO Exam Type: Colonoscopy Indications: High risk colon cancer surveillance: Personalhistory of colonic polyps, Last colonoscopy: 2015 Medications: Monitored Anesthesia Care Procedure: Informed consent was obtained from the patientafter discussion of the indications, limitations, alternatives, benefits, and risks of the procedure. Risks specifically discussed include but are not limited to medication reactions, missed lesions, bleeding, perforation, or the need for emergent surgery. Throughout the procedure, the patient's blood pressure, pulse, end-tidal CO2, and oxygensaturations were monitored continuously. The Olympus adult variable colonoscope [id number] #6 was introduced through the anus and advanced to the terminal ileum, with identification of theappendiceal orifice and IC valve. The colonoscopy was performed without difficulty. The patient tolerated the procedure well. The quality of the bowelpreparation was good after copious irrigation. Complications: No immediate complications. Estimated blood loss:None. Findings: The terminal ileum appeared normal. Examination of the right colon was repeated in retroflexion and again in NBI. Retroflexion wasalso performed in the rectum. Multiple diverticula were found in the sigmoidcolon. The exam was otherwise without abnormality. Impression: - The examined portion of the ileum was normal. - Diverticulosis in the sigmoid colon. - The examination was otherwise normal. - No specimens collected. Recommendation: - Patient has a contact number available for emergencies. The signs and symptoms of potential delayed complications were discussed with thepatient. Return to normal activities tomorrow. Written discharge instructions were provided to thepatient. - Repeat colonoscopy in 10 years for screening purposes. Roosevelt Cordova ROOSEVELT CORDOVA MD 11/14/2021 11:15:17 AM This report has been signed electronically. Number of Addenda: 0 Note Initiated On: 11/14/2021 10:38 AM Procedure Code(s): --- Professional --- 06188, Colonoscopy, flexible; diagnostic, including collection of specimen(s) by brushing or washing, when performed (separateprocedure) --- Technical --- 70320, Colonoscopy, flexible; diagnostic, including collection of specimen(s) by brushing or washing, when performed (separateprocedure) CPT copyright 2020 [employer]. All rights reserved. The codes documented in this report are preliminary and upon tower hoist operator reviewmay be revised to meet current compliance requirements. Procedure Date: 11/14/2021 10:38:[address] [place] [address] us Narinder A Bigda DO GI PROCEDURE ORDERABLES Final Re sult from Last 3 Months or Most Recently Relevant to Health Maintenance Insurance [place] [employer] SUPPLEMENT MEDICARE PART A & B [employer] MEDEX SUPPLEMENT MEDICARE PART A & B [employer] CROSS MEDEX SUPPLEMENT MEDICARE PART A & B [employer] SUPPLEMENT MEDICARE PART A & B Member Subscriber Plan / Payer ( fective 2018-Present) Name:Lizzy Stacy Member ID:[id number] Relation to Subscriber:Self Name:RegisSterlingon Subscriber ID:[id number] Payer ID:[id number] Group ID:Not on file Type:Medicare Address: [employer] [address] [employer] CROSS MEDEX SUPPLEMENT MEDICARE PART A & B [employer] MED[employer] SUPPLEMENT MEDICARE PART A & B [employer] SUPPLEMENT MEDICARE PART A & B [employer] SUPPLEMENT MEDICARE PART A & B [employer] SUPPLEMENT MEDICARE PART A & B Care Teams Aircraft Instrument Engineer Relationship Specialty Start Date End Date Narinder Cummins DO [address] [place] [id number] PCP - General Internal Medicine 12/06/24 Guillaume Chino DO [address] [place] [id number] [email or web address] Primary Oncologist Hematology and Oncology 06/13/23 Additional Source Comments The information contained in this document represents components of the legal health record. It is not the complete legal health record.[facility]
--- OUTSIDE RECORDS SUMMARY | 2025-04-05 07:51 | XMS_ITS | Encounter Summary ---
Author Organization [facility] Address [address] [facility] [address] [place] [phone] Phone Care Team Providers Care Mess Attendant Name Role Phone Darinel Amaya DO Primary Care Provider [phone] Guillaume Chino DO Unavailable [phone] Darinel Amaya DO Primary Care Provider [phone] Reason for Referral * MRI/CAT Scan - Closed Specialty Diagnoses / Procedures Referred By Susy mims Referred To Contact Radiology Diagnoses Memory loss Ataxia Procedures MRI Brain Cj Lynch MD Phone: tel: fax: [email or web address] Referral ID Status Reason Start Date Expiration Date Visits Re quested Visits Authorized [id number] Closed 03/18/2022 03/18/2023 1 1 Encounter Details Date Type Department Care Team (Latest Contact Info) Description 03/18/2022 Transcribe Orders Virtual Department [address] [place] [address] Cj Lynch MD [address] [facility] [place], [place] [id number] [email or web address] Memory loss (Primary Dx); Ataxia Social History Tobacco Use Types Packs/Day Years [...] Info) Description 05/16/2025 11:00 AM EST Nutrition [facility] [address] [place] [address] [place] [address] Yamilet Muñoz LDN [address] [place] [id number] [email or web address] 07/04/2025 10:20 AM EST Office Visit [facility] [address] [place] [address] Jacki Zacarias MD [address] [place] [id number] [email or web address] 07/07/2025 1:00 PM EST Appointment [facility] [address] [place] [phone] Guillaume Chino, DO [address] [place] [id number] [email or web address] 07/14/2025 9:30 AM EST Office Visit [facility] at [address] [address] Guillaume Chino, DO [address] [place] [id number] [email or web address] documented as of this encounter Results * MRI BRAIN WITHOUT CONTRAST (04/11/2022 4:29 PM EDT) Anatomical Region Laterality Modality Head Magnetic Resonan ce 04/11/2022 5:05 PM EDT Impressions 04/11/2022 10:42 PM EDT No discrete no cause for the reported symptoms identified. Narrative 04/11/2022 10:42 PM EDT MRI BRAIN WITHOUT CONTRAST TECHNIQUE: MRI BRAIN WITHOUT CONTRAST Multi-sequence, multi-planar MRI of the brain was performed without intravenous contrast. COMPARISON: None FINDINGS: Brain Parenchyma: Normal. No evidence of acute infarct, mass lesion, or hemorrhage. Ventricular System and Extra-Axial Spaces: No evidence of significant volume loss for age. No evidence of midline shift or hydrocephalus. Extracranial Structures: Arterial flow voids in the skull base are present. Procedure Note Paul Disla MD - 04/11/2022 MRI BRAIN WITHOUT CONTRAST TECHNIQUE: MRI BRAIN WITHOUT CONTRAST Multi-sequence, multi-planar MRI of the brain was performed withoutintravenous contrast. COMPARISON: None FINDINGS: Brain Parenchyma: Normal. No evidence of acute infarct, mass lesion, orhemorrhage. Ventricular System and Extra-Axial Spaces: No evidence of significantvolume loss for age. No evidence of midline shift or hydrocephalus. Extracranial Structures: Arterial flow voids in the skull base arepresent. IMPRESSION: No discrete no cause for the reported symptoms identified. Cj Lynch MD IMG MR HEAD/NECK Final Resul t documented in this encounter Visit Diagnoses Diagnosis Memory loss- Primary Ataxia Lack of coordination Memory loss Ataxia Lack of coordination documented in this encounter Additional Health Concerns Infection Onset Date Last Indicated Resolved Time CoV-Risk 04/16/2023 04/16/2023 04/27/2023 1:21 AM EST documented as of this encounter Care Teams Mess Attendant Relationship Specialty Start Date End Date Darinel Amaya DO PCP - General 03/24/17 12/05/24 Darinel Amaya DO [address] [place] [phone] [email or web address] PCP - General Internal Medicine 12/06/24 Guillaume Chino DO [address] [place] [id number] [email or web address] Primary Oncologist Hematology and Oncology 06/13/23 documented as of this encounter Additional Source Comments The information contained in this document represents components of the legal health record. It is not the complete legal health record.[facility]
[2025-04-05 13:06] LABS: MANUAL DIFF FLAG NO
[2025-04-05 13:09] LABS: Hematocrit 43.3 % (37.0-47.0); Hemoglobin 14.2 g/dl (12.0-16.0); Imm Gran Abs Auto 0.02 X10*3/uL (0.00-0.03); Imm Gran Pct Auto 0.3 % (0.0-0.4); Lymphocytes Absolute Auto 1.5 X10*3/uL (1.2-4.9); Mean Corpuscular HGB Conc 32.8 g/dl (31.0-35.0); Mean Corpuscular Hemoglobin 29.6 pg (27.0-33.0); Mean Corpuscular Volume 90.4 fL (80.0-98.0); NRBC Abs Auto 0.000 X10*3/uL (0.0-0.012); NRBC Pct Auto 0.0 /100WBC (0.0-0.2); Platelet Count 219 X10*3/uL (160-400); Red Blood Count 4.79 X10*6/uL (4.20-5.50); White Blood Count 6.0 X10*3/uL (4.8-10.8)
[2025-04-05 13:36] LABS: Alanine Aminotransferase 45 U/L (0-31); Albumin Level 4.0 g/dL (3.5-5.0); Alkaline Phosphatase 81 U/L (39-117); Anion Gap 11 (12-20); Aspartate Amino Transferase 40 U/L (5-31); Blood Urea Nitrogen 13 mg/dL (9-16); Calcium 9.5 mg/dL (8.4-10.2); Carbon Dioxide 24 mmol/L (22-29); Chloride 110 mmol/L (96-108); Cholesterol 226 mg/dL (<200); Estimated Glomerular Filt Rate > 60; HDL Cholesterol 61 mg/dL (>40); Potassium 3.9 mmol/L (3.3-5.1); Sodium 141 mmol/L (135-145); Total Protein 6.6 g/dL (6.5-8.0); Triglycerides 91 mg/dL (<150)
[2025-04-05 13:57] LABS: Folate 11.1 ng/mL (> or = 4.0); Vitamin B12 760 pg/mL (200-900)
[2025-04-05 14:06] LABS: Microalbum/Creatinine Ratio Ur 7.0 ug/mg cr (<30)
[2025-04-06 07:56] LABS: Hemoglobin A1C 134.4077 umol/L; Total Hemoglobin (HGBA1C) 2469.3662 umol/L
== END 2025-04-05 07:45 | disposition home or self-care (01) ==
LOC: HO.MANLDS 07:44
PROVIDERS: Visit Provider Internal Medicine
DX: E78.5 Hyperlipidemia, unspecified (principal); E11.9 Type 2 diabetes mellitus without complications; G30.9 Alzheimer's disease, unspecified
CPT/HCPCS: 36415; 80053; 80061; 82043; 82306; 82570; 82607; 82746; 83036; 83090; 83921; 85025